=== PATIENT | female | born 1975 | race African-American/Black ===

== ENCOUNTER 2016-12-07 01:53 | Emergency (ER) | payer OTHER ==
[~2016-12-07] VITALS: Ht 175.3 cm; Wt 68.2 kg
[~2016-12-07 01:53] MED LIST: LITH300C3 PO; OLAN5Z PO
[2016-12-07 04:10] VITALS: BP 134/85
== END 2016-12-07 04:42 | disposition home or self-care (01) ==
LOC: EMS 01:55
DX: Z76.0 Encounter for issue of repeat prescription (principal); F20.9 Schizophrenia, unspecified; F31.9 Bipolar disorder, unspecified; F17.210 Nicotine dependence, cigarettes, uncomplicated
CPT/HCPCS: 99281

== ENCOUNTER 2016-12-11 19:44 | Inpatient (IN) | payer MEDICAID, OTHER ==
[~2016-12-11] VITALS: Ht 167.6 cm; Wt 73.9 kg
[2016-12-11] MEDS ORDERED: LORazepam 2 MG/ML VIAL IM ONE (20:00)
[2016-12-11] MEDS ORDERED: HALOPERIDOL LACTATE 5 MG/ML VIAL IM ONE (20:00)
[2016-12-11] MEDS ORDERED: DiphenhydrAMINE HCL 50 MG/ML VIAL IM ONE (20:00)
[2016-12-11 20:33] LABS: BASOPHILS # (AUTO) 0.07 K/uL (0.00-0.20); BASOPHILS % (AUTO) 0.7 % (0.0-2.0); EOSINOPHILS # (AUTO) 0.21 K/uL (0.00-0.70); EOSINOPHILS % (AUTO) 2.04 % (1.0-6.0); HEMATOCRIT 36.6 % (36-46); HEMOGLOBIN 12.5 g/dL (12.0-16.0); LYMPHOCYTES # (AUTO) 3.6 K/uL (1.0-4.8); LYMPHOCYTES % (AUTO) 34.7 % (22.0-44.0); MEAN CORPUSCULAR HEMOGLOBIN 32.4 pg (26.0-34.0); MEAN CORPUSCULAR HGB CONC 34.2 G/dL (31.0-37.0); MEAN CORPUSCULAR VOLUME 95 fL (80-100); MONOCYTES # (AUTO) 0.8 K/uL (0.1-1.0); MONOCYTES % (AUTO) 8.1 % (2.0-9.0); NEUTROPHILS # (AUTO) 5.6 K/uL (1.8-7.7); NEUTROPHILS % (AUTO) 54.5 % (40.0-70.0); PLATELET COUNT (AUTO) 383 K/uL (150-450); RED BLOOD CELL COUNT(AUTO) 3.86 MIL/uL (4.00-5.20); RED CELL DISTRIBUTION WIDTH 14.4 % (11.5-14.5); WHITE BLOOD COUNT (AUTO) 10.3 K/uL (4.5-11.0)
[2016-12-11 20:40] LABS: ANION GAP 6 mmol/L (8-16); CALCIUM, TOTAL 9.3 mg/dL (8.8-10.5); CARBON DIOXIDE 29 mmol/L (22-29); CHLORIDE 104 mmol/L (98-107); CREATININE 0.97 mg/dL (0.60-1.30); GLOMERULAR FILTR. RATE CALC > 60 mL/min (>60); LITHIUM 0.68 mmol/L (0.60-1.20); POTASSIUM 3.5 mmol/L (3.5-5.1); SODIUM SERUM 139 mmol/L (136-145); UREA NITROGEN, BLOOD 20 mg/dL (7-18)
[2016-12-11 20:45] LABS: ALANINE AMINOTRANSFERASE 23 U/L (12-78); ALBUMIN 3.7 g/dL (3.4-5.0); ASPARTATE AMINOTRANSFERASE 21 U/L (15-37); BILIRUBIN,TOTAL 0.2 mg/dL (0.1-1.0); TOTAL PROTEIN, SERUM 7.6 g/dL (6.4-8.2)
[2016-12-11] MEDS ORDERED: ZOLPIDEM TARTRATE 10 MG TABLET PO PRN (22:00)
[2016-12-12 16:30] VITALS: BP 116/66
[2016-12-12] MEDS ORDERED: INFLUENZA VIRUS VACCINE QVS 2016-17 (3YR+)/PF 60 MCG/0.5 ML SYRINGE IM ONE (16:30)
[2016-12-12] MEDS: LORazepam 2 MG TABLET PO PRN (16:49)
[2016-12-12] MEDS: HALOPERIDOL 5 MG TABLET PO PRN (16:50)
[2016-12-13 05:39] VITALS: BP 120/76
[2016-12-13] MEDS ORDERED: ACETAMINOPHEN 325 MG TABLET PO PRN (08:15)
[2016-12-13] MEDS ORDERED: IBUPROFEN 400 MG TABLET PO PRN (08:15)
[2016-12-13] MEDS: LORazepam 2 MG TABLET PO PRN ×2 (08:36→16:18)
[2016-12-13] MEDS: HALOPERIDOL 5 MG TABLET PO PRN (08:36)
[2016-12-13 08:59] VITALS: BP 100/60
[2016-12-13 16:10] VITALS: BP 110/63
[2016-12-13] MEDS ORDERED: HALOPERIDOL DECANOATE 100 MG/ML VIAL IM SCH (17:00)
[2016-12-13 19:00] VITALS: BP 124/74
[2016-12-14 06:38] VITALS: BP 127/78
[2016-12-14 08:24] LABS: HEMOGLOBIN A1C 5.4 % (4.5-6.2)
[2016-12-14] MEDS: BENZTROPINE MESYLATE 1 MG TABLET PO SCH (08:24)
[2016-12-14] MEDS: HALOPERIDOL 5 MG TABLET PO PRN ×2 (08:24→13:47)
[2016-12-14] MEDS: LORazepam 2 MG TABLET PO PRN ×2 (08:24→13:47)
[2016-12-14 08:27] VITALS: BP 123/71
[2016-12-14 08:35] LABS: CHOL/HDL RATIO 4.5 (3.9-5.7); THYROID STIMULATING HORMONE 2.9 uIU/mL (0.36-3.74)
[2016-12-14] MEDS ORDERED: HALOPERIDOL DECANOATE 100 MG/ML VIAL IM SCH (09:00)
[2016-12-14 16:00] VITALS: BP 115/63
[2016-12-15 06:09] VITALS: BP 121/72
[2016-12-15] MEDS: HALOPERIDOL 5 MG TABLET PO PRN (08:04)
[2016-12-15] MEDS: BENZTROPINE MESYLATE 1 MG TABLET PO SCH (08:04)
[2016-12-15] MEDS: LORazepam 2 MG TABLET PO PRN (08:04)
[2016-12-15] MEDS ORDERED: BENZ1TAB10 PO (08:06)
[2016-12-15 08:17] VITALS: BP 109/74
[2017-01-12] MEDS ORDERED: HALOPERIDOL DECANOATE 100 MG/ML VIAL IM SCH (09:00)
== END 2016-12-15 10:04 | disposition home or self-care (01) | DRG 750 ==
LOC: EMS 19:45 → B3A 12-12 15:10 → EMS 12-12 15:47 → B3A 12-13 14:05
PROVIDERS: ADMIT Psychiatry & Neurology Psychiatry; ATTEND Psychiatry & Neurology Psychiatry
DX: F20.9 Schizophrenia, unspecified (principal); R45.851 Suicidal ideations; Z59.0 Homelessness; F31.9 Bipolar disorder, unspecified; F17.210 Nicotine dependence, cigarettes, uncomplicated; K21.9 Gastro-esophageal reflux disease without esophagitis; E78.5 Hyperlipidemia, unspecified; F15.90 Other stimulant use, unspecified, uncomplicated; Z79.899 Other long term (current) drug therapy; Z28.21 Immunization not carried out because of patient refusal; Z98.890 Other specified postprocedural states
CPT/HCPCS: 83036; 84443; 96372; 99285; G0480; J1200; J1630; J1631; J2060

== ENCOUNTER 2016-12-20 06:22 | Emergency (ER) | payer MEDICAID ==
[~2016-12-20] VITALS: Ht 162.6 cm; Wt 82.0 kg
[~2016-12-20 06:22] MED LIST changes: +BENZ1TAB10 PO; -LITH300C3 PO; -OLAN5Z PO
[2016-12-20 06:26] VITALS: BP 120/75
== END 2016-12-20 10:03 | disposition left against medical advice (07) ==
LOC: EMS 06:23
DX: Z00.8 Encounter for other general examination (principal); L29.9 Pruritus, unspecified; F31.9 Bipolar disorder, unspecified; F20.9 Schizophrenia, unspecified; F17.210 Nicotine dependence, cigarettes, uncomplicated; Z53.21 Procedure and treatment not carried out due to patient leaving prior to being seen by health care provider

== ENCOUNTER 2017-01-29 19:08 | Emergency (ER) | payer MEDICAID, OTHER ==
[~2017-01-29] VITALS: Ht 157.5 cm; Wt 79.5 kg
[2017-01-29 19:20] VITALS: BP 132/76
[2017-01-29] MEDS ORDERED: DiphenhydrAMINE HCL 25 MG CAPSULE PO ONE (19:30)
[2017-01-29] MEDS ORDERED: HALOPERIDOL 5 MG TABLET PO ONE (19:30)
== END 2017-01-29 19:36 | disposition home or self-care (01) ==
LOC: EMS 19:10
DX: F15.10 Other stimulant abuse, uncomplicated (principal); F20.9 Schizophrenia, unspecified; F31.9 Bipolar disorder, unspecified; F17.210 Nicotine dependence, cigarettes, uncomplicated
CPT/HCPCS: 99283; 99406

== ENCOUNTER 2017-02-04 09:25 | Emergency (ER) | payer OTHER ==
[~2017-02-04] VITALS: Ht 157.5 cm; Wt 84.0 kg
[2017-02-04] MEDS ORDERED: LITH300C3 PO (09:42)
[2017-02-04] MEDS ORDERED: HALO1 PO (09:44)
[2017-02-04] MEDS ORDERED: BENZ0.5T6 PO (09:44)
[2017-02-04 09:46] VITALS: BP 138/78
[2017-02-04 09:47] LABS: BASOPHILS # (AUTO) 0.03 K/uL (0.00-0.20); BASOPHILS % (AUTO) 0.4 % (0.0-2.0); EOSINOPHILS % (AUTO) 1.37 % (1.0-6.0); HEMATOCRIT 37.1 % (36-46); HEMOGLOBIN 12.5 g/dL (12.0-16.0); LYMPHOCYTES # (AUTO) 1.6 K/uL (1.0-4.8); LYMPHOCYTES % (AUTO) 21.7 % (22.0-44.0); MEAN CORPUSCULAR HEMOGLOBIN 31.8 pg (26.0-34.0); MEAN CORPUSCULAR HGB CONC 33.7 G/dL (31.0-37.0); MEAN CORPUSCULAR VOLUME 94 fL (80-100); MONOCYTES # (AUTO) 0.2 K/uL (0.1-1.0); MONOCYTES % (AUTO) 3.2 % (2.0-9.0); NEUTROPHILS # (AUTO) 5.4 K/uL (1.8-7.7); NEUTROPHILS % (AUTO) 73.4 % (40.0-70.0); PLATELET COUNT (AUTO) 365 K/uL (150-450); RED BLOOD CELL COUNT(AUTO) 3.93 MIL/uL (4.00-5.20); RED CELL DISTRIBUTION WIDTH 12.9 % (11.5-14.5); WHITE BLOOD COUNT (AUTO) 7.3 K/uL (4.5-11.0)
[2017-02-04 09:56] LABS: ANION GAP 8 mmol/L (8-16); CALCIUM, TOTAL 8.5 mg/dL (8.8-10.5); CARBON DIOXIDE 28 mmol/L (22-29); CHLORIDE 103 mmol/L (98-107); CREATININE 0.92 mg/dL (0.60-1.30); GLOMERULAR FILTR. RATE CALC > 60 mL/min (>60); POTASSIUM 3.3 mmol/L (3.5-5.1); SODIUM SERUM 139 mmol/L (136-145); UREA NITROGEN, BLOOD 10 mg/dL (7-18)
[2017-02-04 10:05] LABS: ALANINE AMINOTRANSFERASE 28 U/L (12-78); ALBUMIN 3.9 g/dL (3.4-5.0); ASPARTATE AMINOTRANSFERASE 20 U/L (15-37); BILIRUBIN,TOTAL 0.4 mg/dL (0.1-1.0); TOTAL PROTEIN, SERUM 7.8 g/dL (6.4-8.2)
== END 2017-02-04 10:14 | disposition left against medical advice (07) ==
LOC: EMS 09:27
DX: R45.851 Suicidal ideations (principal); F31.9 Bipolar disorder, unspecified; F20.9 Schizophrenia, unspecified; F17.210 Nicotine dependence, cigarettes, uncomplicated; Z53.21 Procedure and treatment not carried out due to patient leaving prior to being seen by health care provider
CPT/HCPCS: 36415; 80053; 80307; 84702; 84703; 85025; G0480

== ENCOUNTER 2017-02-16 00:36 | Inpatient (IN) | payer MEDICAID, OTHER ==
[~2017-02-16] VITALS: Ht 167.6 cm; Wt 69.2 kg
[~2017-02-16 00:36] MED LIST changes: +BENZ0.5T6 PO; +HALO1 PO; +LITH300C3 PO
[2017-02-16 00:59] LABS: BASOPHILS # (AUTO) 0.06 K/uL (0.00-0.20); BASOPHILS % (AUTO) 0.7 % (0.0-2.0); EOSINOPHILS # (AUTO) 0.19 K/uL (0.00-0.70); EOSINOPHILS % (AUTO) 2.32 % (1.0-6.0); HEMATOCRIT 38.7 % (36-46); HEMOGLOBIN 12.9 g/dL (12.0-16.0); LYMPHOCYTES # (AUTO) 2.6 K/uL (1.0-4.8); LYMPHOCYTES % (AUTO) 32.9 % (22.0-44.0); MEAN CORPUSCULAR HEMOGLOBIN 31.7 pg (26.0-34.0); MEAN CORPUSCULAR HGB CONC 33.3 G/dL (31.0-37.0); MEAN CORPUSCULAR VOLUME 95 fL (80-100); MONOCYTES # (AUTO) 0.7 K/uL (0.1-1.0); MONOCYTES % (AUTO) 8.2 % (2.0-9.0); NEUTROPHILS # (AUTO) 4.5 K/uL (1.8-7.7); NEUTROPHILS % (AUTO) 55.9 % (40.0-70.0); PLATELET COUNT (AUTO) 399 K/uL (150-450); RED BLOOD CELL COUNT(AUTO) 4.06 MIL/uL (4.00-5.20); RED CELL DISTRIBUTION WIDTH 14.4 % (11.5-14.5)
[2017-02-16 01:05] LABS: ANION GAP 8 mmol/L (8-16); CALCIUM, TOTAL 9.1 mg/dL (8.8-10.5); CARBON DIOXIDE 27 mmol/L (22-29); CHLORIDE 107 mmol/L (98-107); CREATININE 0.77 mg/dL (0.60-1.30); GLOMERULAR FILTR. RATE CALC > 60 mL/min (>60); POTASSIUM 3.7 mmol/L (3.5-5.1); SODIUM SERUM 142 mmol/L (136-145); UREA NITROGEN, BLOOD 11 mg/dL (7-18)
[2017-02-16 01:11] LABS: ALANINE AMINOTRANSFERASE 29 U/L (12-78); ASPARTATE AMINOTRANSFERASE 23 U/L (15-37); BILIRUBIN,TOTAL 0.4 mg/dL (0.1-1.0)
[2017-02-16 01:37] LABS: LITHIUM < 0.20 mmol/L (0.60-1.20)
[2017-02-16] MEDS ORDERED: LORazepam 2 MG TABLET PO ONE (02:30)
[2017-02-16] MEDS ORDERED: DiphenhydrAMINE HCL 25 MG CAPSULE PO ONE (02:30)
[2017-02-16] MEDS ORDERED: HALOPERIDOL 5 MG TABLET PO ONE (02:30)
[2017-02-16 04:21] VITALS: BP 144/77
[2017-02-16] MEDS ORDERED: MAGNESIUM HYDROXIDE SUSPENSION 30 ML UDCUP PO PRN (08:00)
[2017-02-16] MEDS ORDERED: ALBUTEROL SULFATE HFA 90 MCG/PUFF 8 GM INHALER IH PRN (08:00)
[2017-02-16] MEDS ORDERED: ONDANSETRON HCL 4 MG TABLET PO PRN (08:00)
[2017-02-16] MEDS ORDERED: CloNIDine HCL 0.1 MG TABLET PO PRN (08:00)
[2017-02-16] MEDS ORDERED: PETROLATUM,WHITE 71 GM JELLY TP PRN (08:00)
[2017-02-16] MEDS ORDERED: MAG HYDROX/AL HYDROX/SIMETH ES 30 ML SUSPENSION UDCUP PO PRN (08:00)
[2017-02-16] MEDS ORDERED: IBUPROFEN 600 MG TABLET PO PRN (08:00)
[2017-02-16] MEDS ORDERED: ACETAMINOPHEN 325 MG TABLET PO PRN (08:00)
[2017-02-16] MEDS ORDERED: BACITRACIN 28.4 GM OINTMENT TP PRN (08:00)
[2017-02-16] MEDS ORDERED: LOPERAMIDE HCL 2 MG CAPSULE PO PRN (08:00)
[2017-02-16] MEDS ORDERED: BENZOCAINE/MENTHOL LOZENGE [8 LOZENGES/PACKET] MM PRN (08:00)
[2017-02-16 08:38] VITALS: BP 113/63
[2017-02-16] MEDS ORDERED: LITHIUM CARBONATE 300 MG CAPSULE PO SCH (09:00)
[2017-02-16] MEDS ORDERED: HALOPERIDOL 5 MG TABLET PO SCH (09:00)
[2017-02-16 16:29] VITALS: BP 119/82
[2017-02-16] MEDS: LITHIUM CARBONATE 300 MG CAPSULE PO SCH (18:02)
[2017-02-16] MEDS: HALOPERIDOL 5 MG TABLET PO SCH (21:19)
[2017-02-17] MEDS: LORazepam 2 MG TABLET PO PRN ×3 (06:25→18:06)
[2017-02-17] MEDS: HALOPERIDOL 5 MG TABLET PO PRN ×3 (06:29→18:06)
[2017-02-17 07:02] LABS: CHOL/HDL RATIO 4.6 (3.9-5.7); THYROID STIMULATING HORMONE 0.79 uIU/mL (0.36-3.74)
[2017-02-17 08:16] VITALS: BP 103/62
[2017-02-17] MEDS: LITHIUM CARBONATE 300 MG CAPSULE PO SCH ×2 (10:58→15:49)
[2017-02-17] MEDS: HALOPERIDOL 5 MG TABLET PO SCH ×2 (10:59→20:23)
[2017-02-17 16:30] VITALS: BP 112/78
[2017-02-17] MEDS: SIMVASTATIN 10 MG TABLET PO SCH (20:24)
[2017-02-18] MEDS: CHOLECALCIFEROL (VIT D3) 1,000 UNITS TABLET PO SCH (07:29)
[2017-02-18] MEDS: HALOPERIDOL 5 MG TABLET PO SCH ×2 (07:29→21:10)
[2017-02-18] MEDS: LITHIUM CARBONATE 300 MG CAPSULE PO SCH ×2 (07:29→17:20)
[2017-02-18] MEDS: LORazepam 2 MG TABLET PO PRN ×2 (07:29→12:27)
[2017-02-18 08:55] VITALS: BP 105/66
[2017-02-18] MEDS: HALOPERIDOL 5 MG TABLET PO PRN (12:27)
[2017-02-18] MEDS ORDERED: LORazepam 2 MG/ML VIAL IM ONE (16:30)
[2017-02-18] MEDS ORDERED: HALOPERIDOL LACTATE 5 MG/ML VIAL IM ONE (16:30)
[2017-02-18] MEDS ORDERED: DiphenhydrAMINE HCL 50 MG/ML VIAL IM ONE (16:30)
[2017-02-18 17:07] VITALS: BP 102/69
[2017-02-18] MEDS: SIMVASTATIN 10 MG TABLET PO SCH (21:09)
[2017-02-19] MEDS: HALOPERIDOL 5 MG TABLET PO SCH ×2 (07:36→20:16)
[2017-02-19] MEDS: CHOLECALCIFEROL (VIT D3) 1,000 UNITS TABLET PO SCH (07:36)
[2017-02-19] MEDS: LITHIUM CARBONATE 300 MG CAPSULE PO SCH ×2 (07:36→16:54)
[2017-02-19] MEDS: LORazepam 2 MG TABLET PO PRN ×3 (07:36→17:45)
[2017-02-19 08:34] VITALS: BP 115/66
[2017-02-19] MEDS: HALOPERIDOL 5 MG TABLET PO PRN (11:39)
[2017-02-19 16:00] VITALS: BP 114/72
[2017-02-19] MEDS: SIMVASTATIN 10 MG TABLET PO SCH (20:16)
[2017-02-20] MEDS: ZOLPIDEM TARTRATE 10 MG TABLET PO PRN (01:05)
[2017-02-20 01:07] VITALS: BP 105/63
[2017-02-20] MEDS: LORazepam 2 MG TABLET PO PRN ×2 (07:48→17:08)
[2017-02-20] MEDS: HALOPERIDOL 5 MG TABLET PO SCH ×2 (07:48→21:40)
[2017-02-20] MEDS: LITHIUM CARBONATE 300 MG CAPSULE PO SCH ×2 (07:48→17:08)
[2017-02-20] MEDS: CHOLECALCIFEROL (VIT D3) 1,000 UNITS TABLET PO SCH (07:48)
[2017-02-20 08:16] VITALS: BP 104/60
[2017-02-20 16:40] VITALS: BP 113/75
[2017-02-20] MEDS: SIMVASTATIN 10 MG TABLET PO SCH (21:39)
[2017-02-21] MEDS: ZOLPIDEM TARTRATE 10 MG TABLET PO PRN (02:49)
[2017-02-21 08:30] VITALS: BP 114/71
[2017-02-21] MEDS: LORazepam 2 MG TABLET PO PRN (08:45)
[2017-02-21] MEDS: CHOLECALCIFEROL (VIT D3) 1,000 UNITS TABLET PO SCH (08:45)
[2017-02-21] MEDS: HALOPERIDOL 5 MG TABLET PO SCH ×2 (08:46→20:34)
[2017-02-21] MEDS: LITHIUM CARBONATE 300 MG CAPSULE PO SCH ×2 (08:46→16:10)
[2017-02-21] MEDS ORDERED: DiphenhydrAMINE HCL 50 MG/ML VIAL IM ONE (09:45)
[2017-02-21] MEDS ORDERED: LORazepam 2 MG/ML VIAL IM ONE (09:45)
[2017-02-21] MEDS ORDERED: HALOPERIDOL LACTATE 5 MG/ML VIAL IM ONE (09:45)
[2017-02-21 16:00] VITALS: BP 105/55
[2017-02-21] MEDS: SIMVASTATIN 10 MG TABLET PO SCH (20:47)
[2017-02-22] MEDS: LORazepam 2 MG TABLET PO PRN ×2 (03:31→08:25)
[2017-02-22 04:51] VITALS: BP 110/68
[2017-02-22 08:10] VITALS: BP 113/62
[2017-02-22] MEDS: LITHIUM CARBONATE 300 MG CAPSULE PO SCH ×2 (08:25→16:09)
[2017-02-22] MEDS: CHOLECALCIFEROL (VIT D3) 1,000 UNITS TABLET PO SCH (08:26)
[2017-02-22] MEDS: HALOPERIDOL 5 MG TABLET PO SCH ×2 (08:26→20:26)
[2017-02-22 16:41] VITALS: BP 115/67
[2017-02-22] MEDS: SIMVASTATIN 10 MG TABLET PO SCH (20:26)
[2017-02-23] MEDS: LORazepam 2 MG TABLET PO PRN (02:43)
[2017-02-23] MEDS: ZOLPIDEM TARTRATE 10 MG TABLET PO PRN (02:43)
[2017-02-23 05:03] VITALS: BP 112/60
[2017-02-23] MEDS: LITHIUM CARBONATE 300 MG CAPSULE PO SCH (08:25)
[2017-02-23] MEDS: CHOLECALCIFEROL (VIT D3) 1,000 UNITS TABLET PO SCH (08:25)
[2017-02-23] MEDS: HALOPERIDOL 5 MG TABLET PO SCH (08:26)
[2017-02-23 08:36] VITALS: BP 103/57
[2017-02-23] MEDS ORDERED: HALO10 PO (10:33)
[2017-02-23] MEDS ORDERED: SIMV-259 PO (10:37)
[2017-02-23] MEDS ORDERED: VITAD1000 PO (10:37)
== END 2017-02-23 12:35 | disposition home or self-care (01) | DRG 750 ==
LOC: EMS 00:38 → 3EC 03:00
PROVIDERS: ADMIT Psychiatry & Neurology Child & Adolescent Psychiatry; ATTEND Psychiatry & Neurology Psychiatry
DX: F20.0 Paranoid schizophrenia (principal); E55.9 Vitamin D deficiency, unspecified; F25.1 Schizoaffective disorder, depressive type; Z59.0 Homelessness; E78.00 Pure hypercholesterolemia, unspecified; E78.5 Hyperlipidemia, unspecified; F12.90 Cannabis use, unspecified, uncomplicated; G47.00 Insomnia, unspecified; K21.9 Gastro-esophageal reflux disease without esophagitis; F17.210 Nicotine dependence, cigarettes, uncomplicated; Z71.6 Tobacco abuse counseling; Z71.51 Drug abuse counseling and surveillance of drug abuser; Z98.890 Other specified postprocedural states; Z79.899 Other long term (current) drug therapy
CPT/HCPCS: 82306; 84443; 99285; G0480; J1200; J1630; J2060

== ENCOUNTER 2017-02-27 02:20 | Emergency (ER) | payer MEDICAID, OTHER ==
[~2017-02-27 02:20] MED LIST changes: -BENZ0.5T6 PO; -BENZ1TAB10 PO; -HALO1 PO; +HALO10 PO; +SIMV-259 PO; +VITAD1000 PO
== END 2017-02-27 03:00 | disposition left against medical advice (07) ==
LOC: EMS 02:22
DX: Z76.0 Encounter for issue of repeat prescription (principal); Z53.21 Procedure and treatment not carried out due to patient leaving prior to being seen by health care provider

== ENCOUNTER 2017-07-10 05:55 | Inpatient (IN) | payer MEDICAID, OTHER ==
[~2017-07-10] VITALS: Ht 162.6 cm; Wt 49.9 kg
[2017-07-10 06:41] LABS: BASOPHILS % (AUTO) 0.6 % (0.0-2.0); HEMATOCRIT 35.2 % (36-46); HEMOGLOBIN 11.8 g/dL (12.0-16.0); LYMPHOCYTES % (AUTO) 42.3 % (22.0-44.0); MEAN CORPUSCULAR HEMOGLOBIN 32.1 pg (26.0-34.0); MEAN CORPUSCULAR HGB CONC 33.6 G/dL (31.0-37.0); MEAN CORPUSCULAR VOLUME 96 fL (80-100); MONOCYTES # (AUTO) 0.7 K/uL (0.1-1.0); MONOCYTES % (AUTO) 10.2 % (2.0-9.0); NEUTROPHILS # (AUTO) 3.1 K/uL (1.8-7.7); NEUTROPHILS % (AUTO) 43.9 % (40.0-70.0); PLATELET COUNT (AUTO) 407 K/uL (150-450); RED BLOOD CELL COUNT(AUTO) 3.69 MIL/uL (4.00-5.20); RED CELL DISTRIBUTION WIDTH 15.1 % (11.5-14.5)
[2017-07-10] MEDS ORDERED: HALOPERIDOL LACTATE 5 MG/ML VIAL IM ONE (06:45)
[2017-07-10] MEDS ORDERED: DiphenhydrAMINE HCL 50 MG/ML VIAL IM ONE (06:45)
[2017-07-10] MEDS ORDERED: LORazepam 2 MG/ML VIAL IM ONE (06:45)
[2017-07-10 07:01] LABS: ANION GAP 14 mmol/L (8-16); CALCIUM, TOTAL 9.1 mg/dL (8.8-10.5); CARBON DIOXIDE 22 mmol/L (22-29); CHLORIDE 105 mmol/L (98-107); CREATININE 0.75 mg/dL (0.60-1.30); GLOMERULAR FILTR. RATE CALC > 60 mL/min (>60); POTASSIUM 3.9 mmol/L (3.5-5.1); SODIUM SERUM 141 mmol/L (136-145); UREA NITROGEN, BLOOD 11 mg/dL (7-18)
[2017-07-10 07:10] LABS: ALANINE AMINOTRANSFERASE 22 U/L (12-78); ALBUMIN 3.7 g/dL (3.4-5.0); ASPARTATE AMINOTRANSFERASE 17 U/L (15-37); BILIRUBIN,TOTAL 0.4 mg/dL (0.1-1.0); CHOL/HDL RATIO 3.8 (3.9-5.7); TOTAL PROTEIN, SERUM 7.4 g/dL (6.4-8.2)
[2017-07-10] MEDS ORDERED: PETROLATUM,WHITE 71 GM JELLY TP PRN (16:00)
[2017-07-10] MEDS ORDERED: MAG HYDROX/AL HYDROX/SIMETH ES 30 ML SUSPENSION UDCUP PO PRN (16:00)
[2017-07-10] MEDS ORDERED: BENZOCAINE/MENTHOL LOZENGE MM PRN (16:00)
[2017-07-10] MEDS ORDERED: BACITRACIN 28.4 GM OINTMENT TP PRN (16:00)
[2017-07-10] MEDS ORDERED: ALBUTEROL SULFATE HFA 90 MCG/PUFF 8 GM INHALER IH PRN (16:00)
[2017-07-10] MEDS ORDERED: IBUPROFEN 600 MG TABLET PO PRN (16:00)
[2017-07-10] MEDS ORDERED: CloNIDine HCL 0.1 MG TABLET PO PRN (16:00)
[2017-07-10] MEDS ORDERED: LOPERAMIDE HCL 2 MG CAPSULE PO PRN (16:00)
[2017-07-10] MEDS ORDERED: ACETAMINOPHEN 325 MG TABLET PO PRN (16:00)
[2017-07-10] MEDS ORDERED: ONDANSETRON HCL 4 MG TABLET PO PRN (16:00)
[2017-07-10] MEDS ORDERED: MAGNESIUM HYDROXIDE SUSPENSION 30 ML UDCUP PO PRN (16:00)
[2017-07-10] MEDS: SIMVASTATIN 10 MG TABLET PO SCH (20:13)
[2017-07-11] MEDS ORDERED: LORazepam 2 MG/ML VIAL ONE (06:19)
[2017-07-11] MEDS ORDERED: DiphenhydrAMINE HCL 50 MG/ML VIAL ONE (06:19)
[2017-07-11] MEDS ORDERED: HALOPERIDOL LACTATE 5 MG/ML VIAL ONE (06:19)
[2017-07-11] MEDS ORDERED: HALOPERIDOL LACTATE 5 MG/ML VIAL IM ONE (06:30)
[2017-07-11] MEDS ORDERED: LORazepam 2 MG/ML VIAL IM ONE (06:30)
[2017-07-11] MEDS ORDERED: DiphenhydrAMINE HCL 50 MG/ML VIAL IM ONE (06:30)
[2017-07-11] MEDS: LORazepam 2 MG TABLET PO PRN ×2 (09:26→10:30)
[2017-07-11] MEDS: CHOLECALCIFEROL (VIT D3) 1,000 UNITS TABLET PO SCH (09:26)
[2017-07-11] MEDS: LITHIUM CARBONATE 600 MG CAPSULE PO SCH (20:10)
[2017-07-11] MEDS: SIMVASTATIN 10 MG TABLET PO SCH (20:10)
[2017-07-11] MEDS: HALOPERIDOL 10 MG TABLET PO SCH (20:10)
[2017-07-12 01:08] VITALS: BP 126/87
[2017-07-12] MEDS: FERROUS SULFATE 325 MG EC TABLET PO SCH ×2 (06:39→16:43)
[2017-07-12 08:38] LABS: GLUCOSE, URINE (UA) NEGATIVE (NEGATIVE); KETONES,URINE NEGATIVE (NEGATIVE); LEUKOCYTE ESTERASE ,URINE SMALL (NEGATIVE); OCCULT BLOOD,URINE NEGATIVE (NEGATIVE); PH,URINE 6.5 (5.0-8.0); PROTEIN,URINE NEGATIVE (NEGATIVE)
[2017-07-12 08:49] LABS: ADD UA MICROSCOPIC YES; APPEARANCE,URINE HAZY (CLEAR); SQUAMOUS EPITHELIAL CELL,UR Moderate /LPF (None Seen); WBC,URINE None Seen /HPF (0-5)
[2017-07-12] MEDS: CHOLECALCIFEROL (VIT D3) 1,000 UNITS TABLET PO SCH (09:59)
[2017-07-12] MEDS ORDERED: LORazepam 2 MG/ML VIAL ONE (11:44)
[2017-07-12] MEDS ORDERED: DiphenhydrAMINE HCL 50 MG/ML VIAL ONE (11:45)
[2017-07-12] MEDS ORDERED: HALOPERIDOL LACTATE 5 MG/ML VIAL ONE (11:45)
[2017-07-12] MEDS ORDERED: DiphenhydrAMINE HCL 50 MG/ML VIAL IM ONE (12:00)
[2017-07-12] MEDS ORDERED: HALOPERIDOL LACTATE 5 MG/ML VIAL IM ONE (12:00)
[2017-07-12] MEDS ORDERED: LORazepam 2 MG/ML VIAL IM ONE (12:00)
[2017-07-12 16:13] VITALS: BP 113/78
[2017-07-12] MEDS: LORazepam 2 MG TABLET PO PRN (16:22)
[2017-07-12] MEDS: HALOPERIDOL 10 MG TABLET PO SCH (20:26)
[2017-07-12] MEDS: LITHIUM CARBONATE 600 MG CAPSULE PO SCH (20:26)
[2017-07-12] MEDS: SIMVASTATIN 10 MG TABLET PO SCH (20:26)
[2017-07-13] MEDS: FERROUS SULFATE 325 MG EC TABLET PO SCH ×2 (07:09→17:23)
[2017-07-13 09:34] VITALS: BP 110/80
[2017-07-13] MEDS: CIPROFLOXACIN HCL 250 MG TABLET PO SCH ×2 (10:46→16:01)
[2017-07-13] MEDS: CHOLECALCIFEROL (VIT D3) 1,000 UNITS TABLET PO SCH (10:46)
[2017-07-13] MEDS: LORazepam 2 MG TABLET PO PRN (11:22)
[2017-07-13] MEDS ORDERED: HALOPERIDOL LACTATE 5 MG/ML VIAL IM ONE (11:45)
[2017-07-13] MEDS ORDERED: LORazepam 2 MG/ML VIAL IM ONE (11:45)
[2017-07-13] MEDS ORDERED: DiphenhydrAMINE HCL 50 MG/ML VIAL IM ONE (11:45)
[2017-07-13 16:11] VITALS: BP 107/69
[2017-07-13] MEDS: SIMVASTATIN 10 MG TABLET PO SCH (20:10)
[2017-07-13] MEDS: HALOPERIDOL 10 MG TABLET PO SCH (20:10)
[2017-07-13] MEDS: LITHIUM CARBONATE 600 MG CAPSULE PO SCH (20:10)
[2017-07-14] MEDS: FERROUS SULFATE 325 MG EC TABLET PO SCH ×2 (06:27→16:30)
[2017-07-14 07:22] VITALS: BP 110/60
[2017-07-14 08:23] VITALS: BP 106/58
[2017-07-14] MEDS: CIPROFLOXACIN HCL 250 MG TABLET PO SCH ×2 (09:40→16:30)
[2017-07-14] MEDS: LORazepam 2 MG TABLET PO PRN ×3 (09:40→21:06)
[2017-07-14] MEDS: CHOLECALCIFEROL (VIT D3) 1,000 UNITS TABLET PO SCH (09:40)
[2017-07-14 16:07] VITALS: BP 106/67
[2017-07-14] MEDS: LITHIUM CARBONATE 600 MG CAPSULE PO SCH (20:26)
[2017-07-14] MEDS: HALOPERIDOL 10 MG TABLET PO SCH (20:27)
[2017-07-14] MEDS: SIMVASTATIN 10 MG TABLET PO SCH (20:27)
[2017-07-14] MEDS: ZOLPIDEM TARTRATE 10 MG TABLET PO PRN (21:06)
[2017-07-15] MEDS: FERROUS SULFATE 325 MG EC TABLET PO SCH ×2 (06:32→16:39)
[2017-07-15 07:04] VITALS: BP 115/62
[2017-07-15] MEDS: CHOLECALCIFEROL (VIT D3) 1,000 UNITS TABLET PO SCH (08:10)
[2017-07-15] MEDS: LORazepam 2 MG TABLET PO PRN ×3 (08:10→20:41)
[2017-07-15] MEDS: CIPROFLOXACIN HCL 250 MG TABLET PO SCH ×2 (08:10→16:39)
[2017-07-15 08:13] VITALS: BP 109/62
[2017-07-15 16:00] VITALS: BP 106/74
[2017-07-15] MEDS: HALOPERIDOL 5 MG TABLET PO PRN (16:39)
[2017-07-15] MEDS: SIMVASTATIN 10 MG TABLET PO SCH (20:23)
[2017-07-15] MEDS: HALOPERIDOL 10 MG TABLET PO SCH (20:24)
[2017-07-15] MEDS: LITHIUM CARBONATE 600 MG CAPSULE PO SCH (20:24)
[2017-07-16 06:27] VITALS: BP 100/60
[2017-07-16] MEDS: FERROUS SULFATE 325 MG EC TABLET PO SCH ×2 (07:03→16:08)
[2017-07-16] MEDS: CHOLECALCIFEROL (VIT D3) 1,000 UNITS TABLET PO SCH (08:29)
[2017-07-16 08:30] VITALS: BP 121/60
[2017-07-16 16:00] VITALS: BP 126/63
[2017-07-16] MEDS: LORazepam 2 MG TABLET PO PRN (17:28)
[2017-07-16] MEDS: HALOPERIDOL 5 MG TABLET PO PRN (17:28)
[2017-07-16] MEDS: SIMVASTATIN 10 MG TABLET PO SCH (20:28)
[2017-07-16] MEDS: HALOPERIDOL 10 MG TABLET PO SCH (20:28)
[2017-07-16] MEDS: LITHIUM CARBONATE 600 MG CAPSULE PO SCH (20:28)
[2017-07-16] MEDS: ZOLPIDEM TARTRATE 10 MG TABLET PO PRN (20:29)
[2017-07-17 02:25] VITALS: BP 138/71
[2017-07-17] MEDS: FERROUS SULFATE 325 MG EC TABLET PO SCH ×2 (06:37→16:51)
[2017-07-17 08:10] VITALS: BP 118/82
[2017-07-17] MEDS: CHOLECALCIFEROL (VIT D3) 1,000 UNITS TABLET PO SCH (08:49)
[2017-07-17] MEDS: LORazepam 2 MG TABLET PO PRN ×3 (10:38→20:57)
[2017-07-17 16:22] VITALS: BP 115/67
[2017-07-17] MEDS: LITHIUM CARBONATE 600 MG CAPSULE PO SCH (20:16)
[2017-07-17] MEDS: SIMVASTATIN 10 MG TABLET PO SCH (20:16)
[2017-07-17] MEDS: HALOPERIDOL 10 MG TABLET PO SCH (20:16)
[2017-07-17] MEDS: ZOLPIDEM TARTRATE 10 MG TABLET PO PRN (20:57)
[2017-07-18 05:32] VITALS: BP 125/70
[2017-07-18] MEDS: FERROUS SULFATE 325 MG EC TABLET PO SCH ×2 (06:50→16:38)
[2017-07-18 08:00] VITALS: BP 122/77
[2017-07-18] MEDS: CHOLECALCIFEROL (VIT D3) 1,000 UNITS TABLET PO SCH (08:10)
[2017-07-18] MEDS: LORazepam 2 MG TABLET PO PRN ×3 (08:30→16:38)
[2017-07-18] MEDS: HALOPERIDOL 5 MG TABLET PO PRN ×2 (08:50→12:52)
[2017-07-18 16:14] VITALS: BP 114/69
[2017-07-18] MEDS: LITHIUM CARBONATE 600 MG CAPSULE PO SCH (20:03)
[2017-07-18] MEDS: HALOPERIDOL 10 MG TABLET PO SCH (20:03)
[2017-07-18] MEDS: SIMVASTATIN 10 MG TABLET PO SCH (20:03)
[2017-07-19] MEDS: FERROUS SULFATE 325 MG EC TABLET PO SCH ×2 (06:30→16:04)
[2017-07-19 07:08] VITALS: BP 120/72
[2017-07-19] MEDS: CHOLECALCIFEROL (VIT D3) 1,000 UNITS TABLET PO SCH (08:35)
[2017-07-19 11:29] VITALS: BP 97/67
[2017-07-19] MEDS: LORazepam 2 MG TABLET PO PRN (14:53)
[2017-07-19 14:54] VITALS: BP 110/76
[2017-07-19 16:15] VITALS: BP 119/76
[2017-07-19] MEDS: LITHIUM CARBONATE 600 MG CAPSULE PO SCH (20:08)
[2017-07-19] MEDS: HALOPERIDOL 10 MG TABLET PO SCH (20:08)
[2017-07-19] MEDS: SIMVASTATIN 10 MG TABLET PO SCH (20:08)
[2017-07-20 01:35] VITALS: BP 100/68
[2017-07-20] MEDS: FERROUS SULFATE 325 MG EC TABLET PO SCH ×2 (06:56→16:11)
[2017-07-20 08:00] VITALS: BP 106/52
[2017-07-20] MEDS: HALOPERIDOL 5 MG TABLET PO PRN ×2 (08:05→16:11)
[2017-07-20] MEDS: CHOLECALCIFEROL (VIT D3) 1,000 UNITS TABLET PO SCH (08:05)
[2017-07-20] MEDS ORDERED: LORazepam 2 MG/ML VIAL IM ONE (10:15)
[2017-07-20] MEDS ORDERED: HALOPERIDOL LACTATE 5 MG/ML VIAL IM ONE (10:15)
[2017-07-20] MEDS ORDERED: DiphenhydrAMINE HCL 50 MG/ML VIAL IM ONE (10:15)
[2017-07-20 16:56] VITALS: BP 123/62
[2017-07-20] MEDS: SIMVASTATIN 10 MG TABLET PO SCH (20:10)
[2017-07-20] MEDS: LITHIUM CARBONATE 600 MG CAPSULE PO SCH (20:10)
[2017-07-20] MEDS: HALOPERIDOL 10 MG TABLET PO SCH (20:10)
[2017-07-21] MEDS: FERROUS SULFATE 325 MG EC TABLET PO SCH ×2 (06:32→16:01)
[2017-07-21] MEDS: CHOLECALCIFEROL (VIT D3) 1,000 UNITS TABLET PO SCH (08:11)
[2017-07-21] MEDS: HALOPERIDOL 5 MG TABLET PO PRN (08:11)
[2017-07-21 10:30] VITALS: BP 98/67
[2017-07-21 16:17] VITALS: BP 114/76
[2017-07-21] MEDS: HALOPERIDOL 10 MG TABLET PO SCH (20:06)
[2017-07-21] MEDS: LITHIUM CARBONATE 600 MG CAPSULE PO SCH (20:06)
[2017-07-21] MEDS: SIMVASTATIN 10 MG TABLET PO SCH (20:06)
[2017-07-21] MEDS: ZOLPIDEM TARTRATE 10 MG TABLET PO PRN (20:59)
[2017-07-21] MEDS: LORazepam 2 MG TABLET PO PRN (20:59)
[2017-07-22] MEDS: FERROUS SULFATE 325 MG EC TABLET PO SCH ×2 (06:40→16:28)
[2017-07-22 06:54] VITALS: BP 110/61
[2017-07-22] MEDS: CHOLECALCIFEROL (VIT D3) 1,000 UNITS TABLET PO SCH (08:16)
[2017-07-22 16:05] VITALS: BP 111/68
[2017-07-22] MEDS: LORazepam 2 MG TABLET PO PRN (16:28)
[2017-07-22] MEDS: HALOPERIDOL 5 MG TABLET PO PRN (16:28)
[2017-07-22] MEDS: HALOPERIDOL 10 MG TABLET PO SCH (20:36)
[2017-07-22] MEDS: LITHIUM CARBONATE 600 MG CAPSULE PO SCH (20:36)
[2017-07-22] MEDS: SIMVASTATIN 10 MG TABLET PO SCH (20:36)
[2017-07-23] MEDS: FERROUS SULFATE 325 MG EC TABLET PO SCH ×2 (06:36→16:34)
[2017-07-23] MEDS: HALOPERIDOL 5 MG TABLET PO PRN ×2 (08:30→16:34)
[2017-07-23] MEDS: CHOLECALCIFEROL (VIT D3) 1,000 UNITS TABLET PO SCH (08:30)
[2017-07-23] MEDS: LORazepam 2 MG TABLET PO PRN ×2 (08:44→16:34)
[2017-07-23 16:00] VITALS: BP 107/65
[2017-07-23] MEDS: LITHIUM CARBONATE 600 MG CAPSULE PO SCH (20:21)
[2017-07-23] MEDS: HALOPERIDOL 10 MG TABLET PO SCH (20:21)
[2017-07-23] MEDS: ZOLPIDEM TARTRATE 10 MG TABLET PO PRN (20:22)
[2017-07-23] MEDS: SIMVASTATIN 10 MG TABLET PO SCH (20:22)
[2017-07-24] MEDS: FERROUS SULFATE 325 MG EC TABLET PO SCH (06:16)
[2017-07-24 06:45] VITALS: BP 11/70
[2017-07-24 08:30] VITALS: BP 95/61
[2017-07-24] MEDS ORDERED: FERR-89 PO (08:42)
[2017-07-24] MEDS: CHOLECALCIFEROL (VIT D3) 1,000 UNITS TABLET PO SCH (09:34)
== END 2017-07-24 14:01 | disposition home or self-care (01) | DRG 750 ==
LOC: EMS 05:56 → B3A 12:13
PROVIDERS: ADMIT Psychiatry & Neurology Child & Adolescent Psychiatry; ATTEND Psychiatry & Neurology Psychiatry
DX: F20.0 Paranoid schizophrenia (principal); E55.9 Vitamin D deficiency, unspecified; E78.5 Hyperlipidemia, unspecified; F12.90 Cannabis use, unspecified, uncomplicated; F15.10 Other stimulant abuse, uncomplicated; F17.200 Nicotine dependence, unspecified, uncomplicated; Z71.6 Tobacco abuse counseling; Z71.51 Drug abuse counseling and surveillance of drug abuser; Z72.89 Other problems related to lifestyle; Z71.41 Alcohol abuse counseling and surveillance of alcoholic
CPT/HCPCS: 96372; 99285; G0480; J1200; J1630; J2060

== ENCOUNTER 2018-01-14 18:59 | Inpatient (IN) | payer MEDICAID, OTHER ==
[~2018-01-14] VITALS: Ht 160 cm; Wt 56.8 kg
[~2018-01-14 18:59] MED LIST changes: +FERR-89 PO
[2018-01-14] MEDS ORDERED: HALOPERIDOL LACTATE 5 MG/ML VIAL IM ONE ×2 (20:00)
[2018-01-14] MEDS ORDERED: DiphenhydrAMINE HCL 50 MG/ML VIAL IM ONE ×2 (20:00)
[2018-01-14] MEDS ORDERED: LORazepam 2 MG/ML VIAL IM ONE ×2 (20:00)
[2018-01-14 20:38] LABS: BASOPHILS % (AUTO) 0.7 % (0.0-2.0); EOSINOPHILS % (AUTO) 1.8 % (1.0-6.0); HEMATOCRIT 38.7 % (36-46); HEMOGLOBIN 13.1 g/dL (12.0-16.0); LYMPHOCYTES # (AUTO) 3.2 K/uL (1.0-4.8); LYMPHOCYTES % (AUTO) 34.1 % (22.0-44.0); MEAN CORPUSCULAR HEMOGLOBIN 31.6 pg (26.0-34.0); MEAN CORPUSCULAR HGB CONC 33.9 G/dL (31.0-37.0); MEAN CORPUSCULAR VOLUME 93 fL (80-100); MONOCYTES # (AUTO) 1.1 K/uL (0.1-1.0); NEUTROPHILS # (AUTO) 4.8 K/uL (1.8-7.7); NEUTROPHILS % (AUTO) 51.4 % (40.0-70.0); PLATELET COUNT (AUTO) 445 K/uL (150-450); RED BLOOD CELL COUNT(AUTO) 4.16 MIL/uL (4.00-5.20); RED CELL DISTRIBUTION WIDTH 14.3 % (11.5-14.5)
[2018-01-14 20:54] LABS: ANION GAP 20 mmol/L (8-16); CALCIUM, TOTAL 9.8 mg/dL (8.8-10.5); CARBON DIOXIDE 19 mmol/L (22-29); CHLORIDE 105 mmol/L (98-107); CREATININE 1.06 mg/dL (0.60-1.30); GLOMERULAR FILTR. RATE CALC > 60 mL/min (>60); GLUCOSE,RANDOM 97 mg/dL (70-110); POTASSIUM 3.8 mmol/L (3.5-5.1); SODIUM SERUM 144 mmol/L (136-145); UREA NITROGEN, BLOOD 25 mg/dL (7-18)
[2018-01-14 21:00] LABS: ALANINE AMINOTRANSFERASE 25 U/L (12-78); ALBUMIN 4.1 g/dL (3.4-5.0); ALKALINE PHOSPHATASE 90 U/L (46-116); ASPARTATE AMINOTRANSFERASE 22 U/L (15-37); BILIRUBIN,TOTAL 0.3 mg/dL (0.1-1.0); TOTAL PROTEIN, SERUM 8.6 g/dL (6.4-8.2)
[2018-01-14 22:03] LABS: THYROID STIMULATING HORMONE 1.83 uIU/mL (0.36-3.74)
[2018-01-14 22:36] LABS: LITHIUM < 0.20 mmol/L (0.60-1.20)
[2018-01-15 00:20] VITALS: BP 125/76
[2018-01-15] MEDS ORDERED: INFLUENZA VIRUS VACCINE QVS 2017-18 (3YR+)/PF 60 MCG/0.5 ML SYRINGE IM ONE (00:30)
[2018-01-15] MEDS ORDERED: PETROLATUM,WHITE 71 GM JELLY TP PRN (08:45)
[2018-01-15] MEDS ORDERED: MAGNESIUM HYDROXIDE SUSPENSION 30 ML UDCUP PO PRN (08:45)
[2018-01-15] MEDS ORDERED: ALBUTEROL SULFATE HFA 90 MCG/PUFF 8 GM INHALER IH PRN (08:45)
[2018-01-15] MEDS ORDERED: LOPERAMIDE HCL 2 MG CAPSULE PO PRN (08:45)
[2018-01-15] MEDS ORDERED: BENZOCAINE/MENTHOL LOZENGE MM PRN (08:45)
[2018-01-15] MEDS ORDERED: IBUPROFEN 600 MG TABLET PO PRN (08:45)
[2018-01-15] MEDS ORDERED: ACETAMINOPHEN 325 MG TABLET PO PRN (08:45)
[2018-01-15] MEDS ORDERED: ONDANSETRON HCL 4 MG TABLET PO PRN (08:45)
[2018-01-15] MEDS ORDERED: CloNIDine HCL 0.1 MG TABLET PO PRN (08:45)
[2018-01-15] MEDS ORDERED: BACITRACIN 28.4 GM OINTMENT TP PRN (08:45)
[2018-01-15] MEDS ORDERED: MAG HYDROX/AL HYDROX/SIMETH ES 30 ML SUSPENSION UDCUP PO PRN (08:45)
[2018-01-15] MEDS: LORazepam 2 MG TABLET PO PRN ×2 (09:23→16:54)
[2018-01-15] MEDS: LITHIUM CARBONATE 300 MG CAPSULE PO SCH ×2 (09:23→16:54)
[2018-01-15] MEDS: CHOLECALCIFEROL (VIT D3) 1,000 UNITS TABLET PO SCH (09:23)
[2018-01-15 16:27] VITALS: BP 137/74
[2018-01-15] MEDS: HALOPERIDOL 5 MG TABLET PO PRN (16:54)
[2018-01-15] MEDS: HALOPERIDOL 10 MG TABLET PO SCH (21:08)
[2018-01-15] MEDS: ZOLPIDEM TARTRATE 10 MG TABLET PO PRN (21:08)
[2018-01-15] MEDS: SIMVASTATIN 10 MG TABLET PO SCH (21:08)
[2018-01-16 02:52] VITALS: BP 129/74
[2018-01-16] MEDS: LITHIUM CARBONATE 300 MG CAPSULE PO SCH ×2 (08:47→16:06)
[2018-01-16] MEDS: CHOLECALCIFEROL (VIT D3) 1,000 UNITS TABLET PO SCH (08:47)
[2018-01-16] MEDS: LORazepam 2 MG TABLET PO PRN ×2 (08:52→16:06)
[2018-01-16 16:40] VITALS: BP 119/73
[2018-01-16] MEDS: HALOPERIDOL 10 MG TABLET PO SCH (20:51)
[2018-01-16] MEDS: ZOLPIDEM TARTRATE 10 MG TABLET PO PRN (20:51)
[2018-01-16] MEDS: SIMVASTATIN 10 MG TABLET PO SCH (20:51)
[2018-01-17 08:51] VITALS: BP 126/81
[2018-01-17] MEDS: LITHIUM CARBONATE 300 MG CAPSULE PO SCH ×2 (08:59→16:57)
[2018-01-17] MEDS: CHOLECALCIFEROL (VIT D3) 1,000 UNITS TABLET PO SCH (08:59)
[2018-01-17] MEDS: LORazepam 2 MG TABLET PO PRN ×2 (09:00→16:58)
[2018-01-17] MEDS: HALOPERIDOL 5 MG TABLET PO PRN (16:58)
[2018-01-17] MEDS: SIMVASTATIN 10 MG TABLET PO SCH (20:22)
[2018-01-17] MEDS: HALOPERIDOL 10 MG TABLET PO SCH (20:22)
[2018-01-17] MEDS: ZOLPIDEM TARTRATE 10 MG TABLET PO PRN (21:09)
[2018-01-18] MEDS: CHOLECALCIFEROL (VIT D3) 1,000 UNITS TABLET PO SCH (10:02)
[2018-01-18] MEDS: LITHIUM CARBONATE 300 MG CAPSULE PO SCH ×2 (10:02→16:19)
[2018-01-18] MEDS: HALOPERIDOL 5 MG TABLET PO PRN (16:19)
[2018-01-18] MEDS: LORazepam 2 MG TABLET PO PRN (16:19)
[2018-01-18] MEDS: ZOLPIDEM TARTRATE 10 MG TABLET PO PRN (21:23)
[2018-01-18] MEDS: SIMVASTATIN 10 MG TABLET PO SCH (21:23)
[2018-01-18] MEDS: HALOPERIDOL 10 MG TABLET PO SCH (21:23)
[2018-01-19] MEDS: LITHIUM CARBONATE 300 MG CAPSULE PO SCH ×2 (09:32→16:13)
[2018-01-19] MEDS: CHOLECALCIFEROL (VIT D3) 1,000 UNITS TABLET PO SCH (09:32)
[2018-01-19] MEDS: LORazepam 2 MG TABLET PO PRN (15:47)
[2018-01-19 16:31] VITALS: BP 103/71
[2018-01-19] MEDS: ZOLPIDEM TARTRATE 10 MG TABLET PO PRN (20:10)
[2018-01-19] MEDS: SIMVASTATIN 10 MG TABLET PO SCH (20:10)
[2018-01-19] MEDS: HALOPERIDOL 10 MG TABLET PO SCH (20:10)
[2018-01-20] MEDS: LITHIUM CARBONATE 300 MG CAPSULE PO SCH ×2 (09:03→16:10)
[2018-01-20] MEDS: CHOLECALCIFEROL (VIT D3) 1,000 UNITS TABLET PO SCH (09:03)
[2018-01-20] MEDS: HALOPERIDOL 5 MG TABLET PO PRN (09:07)
[2018-01-20 09:47] VITALS: BP 110/60
[2018-01-20] MEDS ORDERED: HALO10 PO (14:08)
[2018-01-20] MEDS ORDERED: VITAD1000 PO (14:08)
[2018-01-20] MEDS ORDERED: LITH300C3 PO (14:09)
== END 2018-01-20 16:57 | disposition home or self-care (01) | DRG 750 ==
LOC: EMS 19:01 → UNDOADMIN 20:47 → B3A 20:47
DX: F25.0 Schizoaffective disorder, bipolar type (principal); R45.851 Suicidal ideations; Z78.1 Physical restraint status; E55.9 Vitamin D deficiency, unspecified; F15.10 Other stimulant abuse, uncomplicated; E78.5 Hyperlipidemia, unspecified; F12.90 Cannabis use, unspecified, uncomplicated; F17.210 Nicotine dependence, cigarettes, uncomplicated; F19.10 Other psychoactive substance abuse, uncomplicated; F41.9 Anxiety disorder, unspecified; G47.00 Insomnia, unspecified; Z91.5 Personal history of self-harm; Z71.6 Tobacco abuse counseling
CPT/HCPCS: 84443; 96372; 99285; G0480; J1200; J1630; J2060

== ENCOUNTER 2018-02-19 12:12 | Emergency (ER) | payer MEDICAID, OTHER ==
[~2018-02-19] VITALS: Ht 160 cm; Wt 54.5 kg
[~2018-02-19 12:12] MED LIST changes: -FERR-89 PO
[2018-02-19] MEDS ORDERED: HALOPERIDOL 5 MG TABLET PO ONE (12:30)
[2018-02-19 12:35] LABS: BASOPHILS % (AUTO) 1.2 % (0.0-2.0); EOSINOPHILS % (AUTO) 2.6 % (1.0-6.0); HEMATOCRIT 33.8 % (36-46); HEMOGLOBIN 11.5 g/dL (12.0-16.0); LYMPHOCYTES # (AUTO) 1.4 K/uL (1.0-4.8); LYMPHOCYTES % (AUTO) 29.9 % (22.0-44.0); MEAN CORPUSCULAR HEMOGLOBIN 31.5 pg (26.0-34.0); MEAN CORPUSCULAR VOLUME 93 fL (80-100); MONOCYTES # (AUTO) 0.4 K/uL (0.1-1.0); MONOCYTES % (AUTO) 8.7 % (2.0-9.0); NEUTROPHILS # (AUTO) 2.8 K/uL (1.8-7.7); NEUTROPHILS % (AUTO) 57.6 % (40.0-70.0); PLATELET COUNT (AUTO) 397 K/uL (150-450); RED BLOOD CELL COUNT(AUTO) 3.65 MIL/uL (4.00-5.20); RED CELL DISTRIBUTION WIDTH 13.9 % (11.5-14.5)
[2018-02-19 12:52] LABS: ANION GAP 8 mmol/L (8-16); CALCIUM, TOTAL 8.7 mg/dL (8.8-10.5); CARBON DIOXIDE 24 mmol/L (22-29); CHLORIDE 110 mmol/L (98-107); CREATININE 0.71 mg/dL (0.60-1.30); GLOMERULAR FILTR. RATE CALC > 60 mL/min (>60); GLUCOSE,RANDOM 95 mg/dL (70-110); POTASSIUM 4.2 mmol/L (3.5-5.1); SODIUM SERUM 142 mmol/L (136-145); UREA NITROGEN, BLOOD 12 mg/dL (7-18)
[2018-02-19 12:57] LABS: ALANINE AMINOTRANSFERASE 18 U/L (12-78); ALBUMIN 3.3 g/dL (3.4-5.0); ALKALINE PHOSPHATASE 61 U/L (46-116); ASPARTATE AMINOTRANSFERASE 18 U/L (15-37); BILIRUBIN,TOTAL 0.3 mg/dL (0.1-1.0)
[2018-02-19 13:04] LABS: LITHIUM < 0.20 mmol/L (0.60-1.20)
[2018-02-19 13:57] VITALS: BP 115/66
== END 2018-02-19 13:58 | disposition home or self-care (01) ==
LOC: EMS 12:13
DX: F25.9 Schizoaffective disorder, unspecified (principal); R41.82 Altered mental status, unspecified; F15.90 Other stimulant use, unspecified, uncomplicated; F17.210 Nicotine dependence, cigarettes, uncomplicated
CPT/HCPCS: 36415; 80053; 80178; 85025; 99284; 99406; G0480

== ENCOUNTER 2018-03-17 07:54 | Emergency (ER) | payer OTHER ==
[~2018-03-17] VITALS: Ht 160 cm; Wt 61.4 kg
[2018-03-17 07:57] VITALS: BP 133/99
== END 2018-03-17 08:00 | disposition left against medical advice (07) ==
LOC: EMS 07:55
DX: F41.9 Anxiety disorder, unspecified (principal); F20.9 Schizophrenia, unspecified; F17.210 Nicotine dependence, cigarettes, uncomplicated; F15.10 Other stimulant abuse, uncomplicated; Z59.0 Homelessness
CPT/HCPCS: 99284

== ENCOUNTER 2018-03-28 04:02 | Inpatient (IN) | payer MEDICAID, OTHER ==
[~2018-03-28] VITALS: Ht 154.9 cm; Wt 63.9 kg
[2018-03-28 05:27] LABS: BASOPHILS % (AUTO) 0.7 % (0.0-2.0); EOSINOPHILS % (AUTO) 2.7 % (1.0-6.0); HEMOGLOBIN 12.5 g/dL (12.0-16.0); LYMPHOCYTES # (AUTO) 2.6 K/uL (1.0-4.8); LYMPHOCYTES % (AUTO) 35.2 % (22.0-44.0); MEAN CORPUSCULAR HEMOGLOBIN 32.3 pg (26.0-34.0); MEAN CORPUSCULAR HGB CONC 34.6 G/dL (31.0-37.0); MEAN CORPUSCULAR VOLUME 93 fL (80-100); MONOCYTES # (AUTO) 0.5 K/uL (0.1-1.0); MONOCYTES % (AUTO) 7.3 % (2.0-9.0); NEUTROPHILS # (AUTO) 4.1 K/uL (1.8-7.7); NEUTROPHILS % (AUTO) 54.1 % (40.0-70.0); PLATELET COUNT (AUTO) 383 K/uL (150-450); RED BLOOD CELL COUNT(AUTO) 3.86 MIL/uL (4.00-5.20)
[2018-03-28 05:34] LABS: ANION GAP 7 mmol/L (8-16); CALCIUM, TOTAL 8.9 mg/dL (8.8-10.5); CARBON DIOXIDE 29 mmol/L (22-29); CHLORIDE 101 mmol/L (98-107); CREATININE 0.79 mg/dL (0.60-1.30); GLOMERULAR FILTR. RATE CALC > 60 mL/min (>60); GLUCOSE,RANDOM 110 mg/dL (70-110); POTASSIUM 3.5 mmol/L (3.5-5.1); SODIUM SERUM 137 mmol/L (136-145); UREA NITROGEN, BLOOD 12 mg/dL (7-18)
[2018-03-28 05:40] LABS: ALANINE AMINOTRANSFERASE 22 U/L (12-78); ALBUMIN 3.7 g/dL (3.4-5.0); ALKALINE PHOSPHATASE 71 U/L (46-116); ASPARTATE AMINOTRANSFERASE 20 U/L (15-37); BILIRUBIN,TOTAL 0.2 mg/dL (0.1-1.0); TOTAL PROTEIN, SERUM 7.5 g/dL (6.4-8.2)
[2018-03-28 05:52] LABS: LITHIUM < 0.20 mmol/L (0.60-1.20)
[2018-03-28] MEDS ORDERED: HALOPERIDOL 5 MG TABLET PO ONE (08:45)
[2018-03-28] MEDS ORDERED: LORazepam 2 MG TABLET PO ONE (08:45)
[2018-03-28 09:23] LABS: AMPHET/METH SCREEN,URINE NEGATIVE (NEGATIVE); BARBITURATE SCREEN, URINE NEGATIVE (NEGATIVE); BENZODIAZEPINES SCREEN,URINE POSITIVE (NEGATIVE); CANNABINOID SCREEN,URINE NEGATIVE (NEGATIVE); COCAINE SCREEN,URINE NEGATIVE (NEGATIVE); METHADONE SCREEN, URINE NEGATIVE (NEGATIVE); OPIATE SCREEN,URINE NEGATIVE (NEGATIVE)
[2018-03-28 09:24] LABS: PHENCYCLIDINE SCREEN,URINE NEGATIVE (NEGATIVE)
[2018-03-28 16:18] VITALS: BP 111/73
[2018-03-28] MEDS: LITHIUM CARBONATE 300 MG CAPSULE PO SCH (17:42)
[2018-03-28] MEDS: LORazepam 2 MG TABLET PO PRN (17:55)
[2018-03-28] MEDS: HALOPERIDOL 5 MG TABLET PO PRN (17:55)
[2018-03-28] MEDS: SIMVASTATIN 10 MG TABLET PO SCH (21:20)
[2018-03-28] MEDS: ZOLPIDEM TARTRATE 10 MG TABLET PO PRN (21:20)
[2018-03-28] MEDS: HALOPERIDOL 10 MG TABLET PO SCH (21:20)
[2018-03-29 00:24] VITALS: BP 113/78
[2018-03-29] MEDS: LORazepam 2 MG TABLET PO PRN ×3 (06:34→16:21)
[2018-03-29] MEDS: HALOPERIDOL 5 MG TABLET PO PRN ×2 (06:34→16:21)
[2018-03-29] MEDS ORDERED: ACETAMINOPHEN 325 MG TABLET PO PRN (06:45)
[2018-03-29] MEDS ORDERED: ONDANSETRON HCL 4 MG TABLET PO PRN (06:45)
[2018-03-29] MEDS ORDERED: PETROLATUM,WHITE 71 GM JELLY TP PRN (06:45)
[2018-03-29] MEDS ORDERED: IBUPROFEN 600 MG TABLET PO PRN (06:45)
[2018-03-29] MEDS ORDERED: MAG HYDROX/AL HYDROX/SIMETH ES 30 ML SUSPENSION UDCUP PO PRN (06:45)
[2018-03-29] MEDS ORDERED: ALBUTEROL SULFATE HFA 90 MCG/PUFF 8 GM INHALER IH PRN (06:45)
[2018-03-29] MEDS ORDERED: LOPERAMIDE HCL 2 MG CAPSULE PO PRN (06:45)
[2018-03-29] MEDS ORDERED: CloNIDine HCL 0.1 MG TABLET PO PRN (06:45)
[2018-03-29] MEDS ORDERED: BENZOCAINE/MENTHOL LOZENGE MM PRN (06:45)
[2018-03-29] MEDS ORDERED: MAGNESIUM HYDROXIDE SUSPENSION 30 ML UDCUP PO PRN (06:45)
[2018-03-29] MEDS ORDERED: BACITRACIN 28.4 GM OINTMENT TP PRN (06:45)
[2018-03-29 08:35] VITALS: BP 126/81
[2018-03-29] MEDS: CHOLECALCIFEROL (VIT D3) 1,000 UNITS TABLET PO SCH (09:28)
[2018-03-29] MEDS: LITHIUM CARBONATE 300 MG CAPSULE PO SCH ×2 (09:28→17:22)
[2018-03-29 16:13] VITALS: BP 119/69
[2018-03-29] MEDS: SIMVASTATIN 10 MG TABLET PO SCH (21:01)
[2018-03-29] MEDS: HALOPERIDOL 10 MG TABLET PO SCH (21:01)
[2018-03-30 03:39] VITALS: BP 114/78
[2018-03-30] MEDS: LORazepam 2 MG TABLET PO PRN ×2 (08:27→16:33)
[2018-03-30] MEDS: HALOPERIDOL 5 MG TABLET PO PRN ×2 (08:27→16:33)
[2018-03-30] MEDS: LITHIUM CARBONATE 300 MG CAPSULE PO SCH ×2 (08:27→16:33)
[2018-03-30] MEDS: CHOLECALCIFEROL (VIT D3) 1,000 UNITS TABLET PO SCH (08:27)
[2018-03-30 08:53] VITALS: BP 121/76
[2018-03-30 16:23] VITALS: BP 124/76
[2018-03-30] MEDS: HALOPERIDOL 10 MG TABLET PO SCH (20:23)
[2018-03-30] MEDS: SIMVASTATIN 10 MG TABLET PO SCH (20:23)
[2018-03-31 03:22] VITALS: BP 127/68
[2018-03-31] MEDS: LORazepam 2 MG TABLET PO PRN ×2 (06:10→16:14)
[2018-03-31] MEDS: CHOLECALCIFEROL (VIT D3) 1,000 UNITS TABLET PO SCH (08:11)
[2018-03-31] MEDS: HALOPERIDOL 5 MG TABLET PO PRN ×2 (08:11→16:14)
[2018-03-31] MEDS: LITHIUM CARBONATE 300 MG CAPSULE PO SCH ×2 (08:12→16:15)
[2018-03-31 08:42] VITALS: BP 100/60
[2018-03-31] MEDS ORDERED: LORazepam 2 MG/ML VIAL ONE (11:49)
[2018-03-31] MEDS ORDERED: DiphenhydrAMINE HCL 50 MG/ML VIAL ONE (11:50)
[2018-03-31] MEDS ORDERED: HALOPERIDOL LACTATE 5 MG/ML VIAL ONE (11:50)
[2018-03-31] MEDS ORDERED: HALOPERIDOL LACTATE 5 MG/ML VIAL IM ONE (12:00)
[2018-03-31] MEDS ORDERED: DiphenhydrAMINE HCL 50 MG/ML VIAL IM ONE (12:00)
[2018-03-31] MEDS ORDERED: LORazepam 2 MG/ML VIAL IM ONE (12:00)
[2018-03-31 16:16] VITALS: BP 109/64
[2018-03-31] MEDS: HALOPERIDOL 10 MG TABLET PO SCH (20:25)
[2018-03-31] MEDS: ZOLPIDEM TARTRATE 10 MG TABLET PO PRN (20:25)
[2018-03-31] MEDS: SIMVASTATIN 10 MG TABLET PO SCH (20:26)
[2018-04-01] MEDS: LITHIUM CARBONATE 300 MG CAPSULE PO SCH ×2 (08:24→16:18)
[2018-04-01] MEDS: CHOLECALCIFEROL (VIT D3) 1,000 UNITS TABLET PO SCH (08:24)
[2018-04-01] MEDS: LORazepam 2 MG TABLET PO PRN ×2 (08:24→16:18)
[2018-04-01] MEDS: HALOPERIDOL 5 MG TABLET PO PRN ×2 (08:24→16:18)
[2018-04-01 08:41] VITALS: BP 122/67
[2018-04-01 16:32] VITALS: BP 123/65
[2018-04-01] MEDS: HALOPERIDOL 10 MG TABLET PO SCH (20:31)
[2018-04-01] MEDS: ZOLPIDEM TARTRATE 10 MG TABLET PO PRN (20:31)
[2018-04-01] MEDS: SIMVASTATIN 10 MG TABLET PO SCH (20:52)
[2018-04-02] MEDS: HALOPERIDOL 5 MG TABLET PO PRN ×3 (04:12→15:55)
[2018-04-02] MEDS: LORazepam 2 MG TABLET PO PRN ×3 (04:13→15:55)
[2018-04-02 04:41] VITALS: BP 122/70
[2018-04-02] MEDS: LITHIUM CARBONATE 300 MG CAPSULE PO SCH ×2 (08:19→16:02)
[2018-04-02] MEDS: CHOLECALCIFEROL (VIT D3) 1,000 UNITS TABLET PO SCH (08:19)
[2018-04-02 08:39] VITALS: BP 122/71
[2018-04-02 16:15] VITALS: BP 110/67
[2018-04-02] MEDS ORDERED: DiphenhydrAMINE HCL 50 MG/ML VIAL IM ONE (16:45)
[2018-04-02] MEDS ORDERED: LORazepam 2 MG/ML VIAL IM ONE (16:45)
[2018-04-02] MEDS ORDERED: HALOPERIDOL LACTATE 5 MG/ML VIAL IM ONE (16:45)
[2018-04-02] MEDS ORDERED: DiphenhydrAMINE HCL 50 MG/ML VIAL ONE (16:47)
[2018-04-02] MEDS ORDERED: HALOPERIDOL LACTATE 5 MG/ML VIAL ONE (16:47)
[2018-04-02] MEDS ORDERED: LORazepam 2 MG/ML VIAL ONE (16:47)
[2018-04-02] MEDS: HALOPERIDOL 10 MG TABLET PO SCH (20:40)
[2018-04-02] MEDS: SIMVASTATIN 10 MG TABLET PO SCH (20:40)
[2018-04-02] MEDS: ZOLPIDEM TARTRATE 10 MG TABLET PO PRN (20:40)
[2018-04-03 04:12] VITALS: BP 122/74
[2018-04-03 08:27] VITALS: BP 118/79
[2018-04-03] MEDS: LITHIUM CARBONATE 300 MG CAPSULE PO SCH ×2 (08:28→16:26)
[2018-04-03] MEDS: CHOLECALCIFEROL (VIT D3) 1,000 UNITS TABLET PO SCH (08:28)
[2018-04-03] MEDS: LORazepam 2 MG TABLET PO PRN ×2 (08:42→16:26)
[2018-04-03] MEDS: HALOPERIDOL 5 MG TABLET PO PRN ×2 (09:01→17:05)
[2018-04-03 16:37] VITALS: BP 101/68
[2018-04-03] MEDS ORDERED: LORazepam 2 MG/ML VIAL ONE (18:24)
[2018-04-03] MEDS ORDERED: HALOPERIDOL LACTATE 5 MG/ML VIAL ONE (18:24)
[2018-04-03] MEDS ORDERED: DiphenhydrAMINE HCL 50 MG/ML VIAL ONE (18:24)
[2018-04-03] MEDS ORDERED: LORazepam 2 MG/ML VIAL IM ONE (18:30)
[2018-04-03] MEDS ORDERED: DiphenhydrAMINE HCL 50 MG/ML VIAL IM ONE (18:30)
[2018-04-03] MEDS ORDERED: HALOPERIDOL LACTATE 5 MG/ML VIAL IM ONE (18:30)
[2018-04-03] MEDS: SIMVASTATIN 10 MG TABLET PO SCH ×2 (21:00→21:48)
[2018-04-03] MEDS: HALOPERIDOL 10 MG TABLET PO SCH ×2 (21:00→21:48)
[2018-04-03] MEDS: ZOLPIDEM TARTRATE 10 MG TABLET PO PRN (21:48)
[2018-04-04 08:19] VITALS: BP 110/64
[2018-04-04] MEDS: LITHIUM CARBONATE 300 MG CAPSULE PO SCH ×3 (08:27→20:52)
[2018-04-04] MEDS: CHOLECALCIFEROL (VIT D3) 1,000 UNITS TABLET PO SCH (08:27)
[2018-04-04] MEDS: LORazepam 2 MG TABLET PO PRN ×2 (10:49→16:40)
[2018-04-04] MEDS: HALOPERIDOL 5 MG TABLET PO PRN ×2 (10:49→16:40)
[2018-04-04] MEDS: HALOPERIDOL 5 MG TABLET PO SCH (20:51)
[2018-04-04] MEDS: SIMVASTATIN 10 MG TABLET PO SCH (20:52)
[2018-04-05] MEDS: LITHIUM CARBONATE 300 MG CAPSULE PO SCH ×3 (08:39→16:53)
[2018-04-05] MEDS: CHOLECALCIFEROL (VIT D3) 1,000 UNITS TABLET PO SCH (08:39)
[2018-04-05] MEDS: LORazepam 2 MG TABLET PO PRN (08:56)
[2018-04-05] MEDS: HALOPERIDOL 5 MG TABLET PO PRN (09:22)
[2018-04-05 16:15] VITALS: BP 109/78
[2018-04-05] MEDS: SIMVASTATIN 10 MG TABLET PO SCH (20:39)
[2018-04-05] MEDS: ZOLPIDEM TARTRATE 10 MG TABLET PO PRN (20:39)
[2018-04-05] MEDS: HALOPERIDOL 5 MG TABLET PO SCH (20:39)
[2018-04-06] MEDS: CHOLECALCIFEROL (VIT D3) 1,000 UNITS TABLET PO SCH (09:36)
[2018-04-06] MEDS: LITHIUM CARBONATE 300 MG CAPSULE PO SCH ×3 (09:36→17:42)
[2018-04-06] MEDS: LORazepam 2 MG TABLET PO PRN ×2 (09:49→16:35)
[2018-04-06] MEDS: HALOPERIDOL 5 MG TABLET PO PRN ×2 (10:18→16:35)
[2018-04-06 14:32] VITALS: BP 120/72
[2018-04-06 16:06] VITALS: BP 108/66
[2018-04-06] MEDS: SIMVASTATIN 10 MG TABLET PO SCH (20:48)
[2018-04-06] MEDS: HALOPERIDOL 5 MG TABLET PO SCH (20:48)
[2018-04-06] MEDS: ZOLPIDEM TARTRATE 10 MG TABLET PO PRN (21:29)
[2018-04-07 05:30] VITALS: BP 114/70
[2018-04-07 08:24] VITALS: BP 105/67
[2018-04-07] MEDS: LORazepam 2 MG TABLET PO PRN ×2 (09:13→17:25)
[2018-04-07] MEDS: CHOLECALCIFEROL (VIT D3) 1,000 UNITS TABLET PO SCH (09:13)
[2018-04-07] MEDS: LITHIUM CARBONATE 300 MG CAPSULE PO SCH ×3 (09:13→17:02)
[2018-04-07] MEDS: HALOPERIDOL 5 MG TABLET PO PRN ×2 (09:14→17:25)
[2018-04-07 16:31] VITALS: BP 104/74
[2018-04-07] MEDS: SIMVASTATIN 10 MG TABLET PO SCH (21:02)
[2018-04-07] MEDS: HALOPERIDOL 5 MG TABLET PO SCH (21:03)
[2018-04-07] MEDS: ZOLPIDEM TARTRATE 10 MG TABLET PO PRN (21:48)
[2018-04-08 06:11] VITALS: BP 113/63
[2018-04-08 08:21] VITALS: BP 115/59
[2018-04-08] MEDS: CHOLECALCIFEROL (VIT D3) 1,000 UNITS TABLET PO SCH (09:00)
[2018-04-08] MEDS: LORazepam 2 MG TABLET PO PRN ×2 (09:00→16:40)
[2018-04-08] MEDS: LITHIUM CARBONATE 300 MG CAPSULE PO SCH ×3 (09:00→17:05)
[2018-04-08 16:13] VITALS: BP 113/70
[2018-04-08] MEDS: HALOPERIDOL 5 MG TABLET PO PRN (16:47)
[2018-04-08] MEDS: SIMVASTATIN 10 MG TABLET PO SCH (20:52)
[2018-04-08] MEDS: HALOPERIDOL 5 MG TABLET PO SCH (20:52)
[2018-04-08] MEDS: ZOLPIDEM TARTRATE 10 MG TABLET PO PRN (21:31)
[2018-04-09 06:45] VITALS: BP 102/69
[2018-04-09] MEDS: CHOLECALCIFEROL (VIT D3) 1,000 UNITS TABLET PO SCH (08:48)
[2018-04-09] MEDS: LITHIUM CARBONATE 300 MG CAPSULE PO SCH ×3 (08:48→16:19)
[2018-04-09] MEDS: LORazepam 2 MG TABLET PO PRN ×2 (08:50→16:20)
[2018-04-09 16:05] VITALS: BP 116/66
[2018-04-09] MEDS: HALOPERIDOL 5 MG TABLET PO PRN (16:20)
[2018-04-09] MEDS: SIMVASTATIN 10 MG TABLET PO SCH (20:21)
[2018-04-09] MEDS: HALOPERIDOL 5 MG TABLET PO SCH (20:21)
[2018-04-09] MEDS: ZOLPIDEM TARTRATE 10 MG TABLET PO PRN (21:14)
[2018-04-10 05:51] VITALS: BP 112/75
[2018-04-10 08:36] VITALS: BP 110/75
[2018-04-10] MEDS: LITHIUM CARBONATE 300 MG CAPSULE PO SCH ×3 (09:17→16:57)
[2018-04-10] MEDS: CHOLECALCIFEROL (VIT D3) 1,000 UNITS TABLET PO SCH (09:17)
[2018-04-10] MEDS ORDERED: LORazepam 2 MG/ML VIAL ONE (11:15)
[2018-04-10] MEDS ORDERED: LORazepam 2 MG/ML VIAL IM ONE (11:15)
[2018-04-10] MEDS ORDERED: DiphenhydrAMINE HCL 50 MG/ML VIAL IM ONE (11:15)
[2018-04-10] MEDS ORDERED: HALOPERIDOL LACTATE 5 MG/ML VIAL IM ONE (11:15)
[2018-04-10] MEDS: LORazepam 2 MG TABLET PO PRN ×2 (11:28→16:57)
[2018-04-10] MEDS: HALOPERIDOL 5 MG TABLET PO PRN ×2 (11:28→16:57)
[2018-04-10] MEDS ORDERED: BACITRACIN 28.4 GM OINTMENT TP PRN (12:30)
[2018-04-10 16:12] VITALS: BP 105/63
[2018-04-10] MEDS: HALOPERIDOL 5 MG TABLET PO SCH (21:07)
[2018-04-10] MEDS: SIMVASTATIN 10 MG TABLET PO SCH (21:08)
[2018-04-11 07:20] VITALS: BP 108/72
[2018-04-11] MEDS: LITHIUM CARBONATE 300 MG CAPSULE PO SCH ×3 (08:28→17:00)
[2018-04-11] MEDS: CHOLECALCIFEROL (VIT D3) 1,000 UNITS TABLET PO SCH (08:28)
[2018-04-11] MEDS: LORazepam 2 MG TABLET PO PRN ×2 (08:30→16:43)
[2018-04-11] MEDS: HALOPERIDOL 5 MG TABLET PO PRN ×2 (08:54→16:44)
[2018-04-11 09:20] VITALS: BP 110/72
[2018-04-11 17:06] VITALS: BP 110/64
[2018-04-11] MEDS: HALOPERIDOL 5 MG TABLET PO SCH (20:41)
[2018-04-11] MEDS: SIMVASTATIN 10 MG TABLET PO SCH (20:41)
[2018-04-11] MEDS: ZOLPIDEM TARTRATE 10 MG TABLET PO PRN (21:19)
[2018-04-12 04:34] VITALS: BP 112/70
[2018-04-12 08:12] VITALS: BP 116/62
[2018-04-12] MEDS: LITHIUM CARBONATE 300 MG CAPSULE PO SCH ×3 (08:30→16:21)
[2018-04-12] MEDS: LORazepam 2 MG TABLET PO PRN (08:30)
[2018-04-12] MEDS: CHOLECALCIFEROL (VIT D3) 1,000 UNITS TABLET PO SCH (08:31)
[2018-04-12] MEDS: HALOPERIDOL 5 MG TABLET PO PRN (09:13)
[2018-04-12] MEDS ORDERED: VITAD1000 PO (14:31)
== END 2018-04-12 18:29 | disposition home or self-care (01) | DRG 750 ==
LOC: EMS 04:03 → B3A 15:00
PROVIDERS: ADMIT Psychiatry & Neurology Psychiatry; ATTEND Psychiatry & Neurology Psychiatry
DX: F20.0 Paranoid schizophrenia (principal); Z78.1 Physical restraint status; E55.9 Vitamin D deficiency, unspecified; Z91.19 Patient's noncompliance with other medical treatment and regimen; F15.10 Other stimulant abuse, uncomplicated; M79.675 Pain in left toe(s); F17.210 Nicotine dependence, cigarettes, uncomplicated; W22.8XXA Striking against or struck by other objects, initial encounter; E78.5 Hyperlipidemia, unspecified; G47.00 Insomnia, unspecified; F12.90 Cannabis use, unspecified, uncomplicated; F31.9 Bipolar disorder, unspecified; Y99.8 Other external cause status; Z59.0 Homelessness; Z79.899 Other long term (current) drug therapy; Z71.6 Tobacco abuse counseling; Z71.51 Drug abuse counseling and surveillance of drug abuser; Y92.238 Other place in hospital as the place of occurrence of the external cause
CPT/HCPCS: 82306; 84443; 99285; G0480; J1200; J1630; J2060; J3535

== ENCOUNTER 2018-05-09 11:42 | Emergency (ER) | payer MEDICAID | END 2018-05-09 12:16 | disposition left against medical advice (07) | LOC: EMS 11:44 | DX: Z53.21 Procedure and treatment not carried out due to patient leaving prior to being seen by health care provider (principal) ==

== ENCOUNTER 2018-05-09 19:03 | Emergency (ER) | payer MEDICAID, OTHER ==
[~2018-05-09] VITALS: Ht 157.5 cm; Wt 54.0 kg
[2018-05-09 19:41] LABS: BASOPHILS % (AUTO) 0.7 % (0.0-2.0); EOSINOPHILS % (AUTO) 3.3 % (1.0-6.0); HEMATOCRIT 33.5 % (36-46); HEMOGLOBIN 11.8 g/dL (12.0-16.0); LYMPHOCYTES # (AUTO) 2.5 K/uL (1.0-4.8); LYMPHOCYTES % (AUTO) 44.4 % (22.0-44.0); MEAN CORPUSCULAR HEMOGLOBIN 32.4 pg (26.0-34.0); MEAN CORPUSCULAR HGB CONC 35.2 G/dL (31.0-37.0); MEAN CORPUSCULAR VOLUME 92 fL (80-100); MONOCYTES # (AUTO) 0.5 K/uL (0.1-1.0); MONOCYTES % (AUTO) 9.2 % (2.0-9.0); NEUTROPHILS # (AUTO) 2.4 K/uL (1.8-7.7); NEUTROPHILS % (AUTO) 42.4 % (40.0-70.0); PLATELET COUNT (AUTO) 369 K/uL (150-450); RED BLOOD CELL COUNT(AUTO) 3.65 MIL/uL (4.00-5.20); RED CELL DISTRIBUTION WIDTH 13.8 % (11.5-14.5)
[2018-05-09 19:52] LABS: ANION GAP 6 mmol/L (8-16); CALCIUM, TOTAL 8.7 mg/dL (8.8-10.5); CARBON DIOXIDE 25 mmol/L (22-29); CHLORIDE 106 mmol/L (98-107); CREATININE 0.81 mg/dL (0.60-1.30); GLOMERULAR FILTR. RATE CALC > 60 mL/min (>60); GLUCOSE,RANDOM 84 mg/dL (70-110); POTASSIUM 3.1 mmol/L (3.5-5.1); SODIUM SERUM 137 mmol/L (136-145); UREA NITROGEN, BLOOD 17 mg/dL (7-18)
[2018-05-09 19:58] LABS: ALANINE AMINOTRANSFERASE 22 U/L (12-78); ALBUMIN 3.8 g/dL (3.4-5.0); ALKALINE PHOSPHATASE 60 U/L (46-116); ASPARTATE AMINOTRANSFERASE 19 U/L (15-37); BILIRUBIN,TOTAL 0.3 mg/dL (0.1-1.0); TOTAL PROTEIN, SERUM 7.4 g/dL (6.4-8.2)
[2018-05-09] MEDS ORDERED: POTASSIUM CHLORIDE 20 MEQ ER TABLET PO ONE (20:15)
[2018-05-09 20:42] LABS: AMPHET/METH SCREEN,URINE POSITIVE (NEGATIVE); BARBITURATE SCREEN, URINE NEGATIVE (NEGATIVE); BENZODIAZEPINES SCREEN,URINE POSITIVE (NEGATIVE); CANNABINOID SCREEN,URINE NEGATIVE (NEGATIVE); COCAINE SCREEN,URINE NEGATIVE (NEGATIVE); METHADONE SCREEN, URINE NEGATIVE (NEGATIVE); OPIATE SCREEN,URINE NEGATIVE (NEGATIVE)
[2018-05-09 20:53] LABS: PHENCYCLIDINE SCREEN,URINE NEGATIVE (NEGATIVE)
[2018-05-09 21:13] VITALS: BP 136/80
== END 2018-05-09 21:19 | disposition home or self-care (01) ==
LOC: EMS 19:04
DX: R20.2 Paresthesia of skin (principal); R45.1 Restlessness and agitation; E87.6 Hypokalemia; F15.10 Other stimulant abuse, uncomplicated; F31.9 Bipolar disorder, unspecified; F20.9 Schizophrenia, unspecified; F17.210 Nicotine dependence, cigarettes, uncomplicated; Z59.0 Homelessness
CPT/HCPCS: 36415; 80053; 80307; 84703; 85025; 99284; G0480

== ENCOUNTER 2018-05-10 19:11 | Emergency (ER) | payer OTHER ==
[~2018-05-10] VITALS: Ht 165.1 cm; Wt 80.0 kg
[2018-05-10 20:22] LABS: BASOPHILS % (AUTO) 0.8 % (0.0-2.0); EOSINOPHILS % (AUTO) 3.6 % (1.0-6.0); HEMOGLOBIN 12.8 g/dL (12.0-16.0); LYMPHOCYTES # (AUTO) 2.4 K/uL (1.0-4.8); LYMPHOCYTES % (AUTO) 36.1 % (22.0-44.0); MEAN CORPUSCULAR HEMOGLOBIN 32.2 pg (26.0-34.0); MEAN CORPUSCULAR HGB CONC 34.6 G/dL (31.0-37.0); MEAN CORPUSCULAR VOLUME 93 fL (80-100); MONOCYTES # (AUTO) 0.7 K/uL (0.1-1.0); MONOCYTES % (AUTO) 10.3 % (2.0-9.0); NEUTROPHILS # (AUTO) 3.3 K/uL (1.8-7.7); NEUTROPHILS % (AUTO) 49.2 % (40.0-70.0); PLATELET COUNT (AUTO) 398 K/uL (150-450); RED BLOOD CELL COUNT(AUTO) 3.98 MIL/uL (4.00-5.20); RED CELL DISTRIBUTION WIDTH 13.6 % (11.5-14.5)
[2018-05-10 20:32] LABS: ANION GAP 7 mmol/L (8-16); CALCIUM, TOTAL 9.1 mg/dL (8.8-10.5); CARBON DIOXIDE 25 mmol/L (22-29); CHLORIDE 108 mmol/L (98-107); CREATININE 0.83 mg/dL (0.60-1.30); GLOMERULAR FILTR. RATE CALC > 60 mL/min (>60); SODIUM SERUM 140 mmol/L (136-145); UREA NITROGEN, BLOOD 14 mg/dL (7-18)
[2018-05-10 20:39] LABS: ALANINE AMINOTRANSFERASE 28 U/L (12-78); ALBUMIN 4.1 g/dL (3.4-5.0); ALKALINE PHOSPHATASE 68 U/L (46-116); ASPARTATE AMINOTRANSFERASE 36 U/L (15-37); BILIRUBIN,TOTAL 0.5 mg/dL (0.1-1.0); TOTAL PROTEIN, SERUM 8.1 g/dL (6.4-8.2)
[2018-05-10 20:44] LABS: GLUCOSE,RANDOM 90 mg/dL (70-110)
[2018-05-11 01:30] VITALS: BP 125/69
[2018-05-11 07:56] LABS: AMPHET/METH SCREEN,URINE POSITIVE (NEGATIVE); BARBITURATE SCREEN, URINE NEGATIVE (NEGATIVE); BENZODIAZEPINES SCREEN,URINE POSITIVE (NEGATIVE); CANNABINOID SCREEN,URINE NEGATIVE (NEGATIVE); COCAINE SCREEN,URINE NEGATIVE (NEGATIVE); METHADONE SCREEN, URINE NEGATIVE (NEGATIVE); OPIATE SCREEN,URINE NEGATIVE (NEGATIVE)
[2018-05-11 08:03] LABS: PHENCYCLIDINE SCREEN,URINE NEGATIVE (NEGATIVE)
== END 2018-05-11 03:40 | disposition home or self-care (01) ==
LOC: EMS 19:12
DX: F20.9 Schizophrenia, unspecified (principal); F31.9 Bipolar disorder, unspecified; F17.210 Nicotine dependence, cigarettes, uncomplicated; F19.90 Other psychoactive substance use, unspecified, uncomplicated; Z59.0 Homelessness
CPT/HCPCS: 36415; 80053; 80307; 84703; 85025; 99284; G0480

== ENCOUNTER 2018-05-13 12:42 | Emergency (ER) | payer OTHER ==
[~2018-05-13] VITALS: Ht 160 cm; Wt 59.1 kg
[~2018-05-13 12:42] MED LIST changes: -SIMV-259 PO; -VITAD1000 PO
[2018-05-13] MEDS ORDERED: INSU100I3 SQ (12:44)
[2018-05-13] MEDS ORDERED: DiphenhydrAMINE HCL 50 MG/ML VIAL IM ONE (13:00)
[2018-05-13] MEDS ORDERED: HALOPERIDOL LACTATE 5 MG/ML VIAL IM ONE (13:00)
[2018-05-13] MEDS ORDERED: LORazepam 2 MG/ML VIAL IM ONE (13:00)
[2018-05-13 13:55] LABS: BASOPHILS % (AUTO) 0.7 % (0.0-2.0); EOSINOPHILS % (AUTO) 1.3 % (1.0-6.0); HEMOGLOBIN 11.7 g/dL (12.0-16.0); LYMPHOCYTES # (AUTO) 1.1 K/uL (1.0-4.8); LYMPHOCYTES % (AUTO) 23.6 % (22.0-44.0); MEAN CORPUSCULAR HEMOGLOBIN 31.7 pg (26.0-34.0); MEAN CORPUSCULAR HGB CONC 34.4 G/dL (31.0-37.0); MEAN CORPUSCULAR VOLUME 92 fL (80-100); MONOCYTES # (AUTO) 0.5 K/uL (0.1-1.0); MONOCYTES % (AUTO) 9.7 % (2.0-9.0); NEUTROPHILS % (AUTO) 64.7 % (40.0-70.0); PLATELET COUNT (AUTO) 397 K/uL (150-450); RED BLOOD CELL COUNT(AUTO) 3.69 MIL/uL (4.00-5.20); RED CELL DISTRIBUTION WIDTH 13.6 % (11.5-14.5)
[2018-05-13 14:13] LABS: ALANINE AMINOTRANSFERASE 24 U/L (12-78); ALBUMIN 3.8 g/dL (3.4-5.0); ALKALINE PHOSPHATASE 52 U/L (46-116); ANION GAP 9 mmol/L (8-16); ASPARTATE AMINOTRANSFERASE 22 U/L (15-37); BILIRUBIN,TOTAL 0.4 mg/dL (0.1-1.0); CALCIUM, TOTAL 8.6 mg/dL (8.8-10.5); CARBON DIOXIDE 27 mmol/L (22-29); CHLORIDE 104 mmol/L (98-107); GLOMERULAR FILTR. RATE CALC > 60 mL/min (>60); GLUCOSE,RANDOM 114 mg/dL (70-110); SODIUM SERUM 140 mmol/L (136-145); TOTAL PROTEIN, SERUM 7.4 g/dL (6.4-8.2); UREA NITROGEN, BLOOD 7 mg/dL (7-18)
[2018-05-13 14:14] LABS: POTASSIUM 2.7 mmol/L (3.5-5.1)
[2018-05-13] MEDS ORDERED: POTASSIUM CHLORIDE 20 MEQ ER TABLET PO ONE (14:30)
[2018-05-13 18:39] LABS: AMPHET/METH SCREEN,URINE POSITIVE (NEGATIVE); BARBITURATE SCREEN, URINE NEGATIVE (NEGATIVE); BENZODIAZEPINES SCREEN,URINE NEGATIVE (NEGATIVE); CANNABINOID SCREEN,URINE NEGATIVE (NEGATIVE); COCAINE SCREEN,URINE NEGATIVE (NEGATIVE); METHADONE SCREEN, URINE NEGATIVE (NEGATIVE); OPIATE SCREEN,URINE NEGATIVE (NEGATIVE)
[2018-05-13 18:43] LABS: PHENCYCLIDINE SCREEN,URINE NEGATIVE (NEGATIVE)
[2018-05-13 19:29] VITALS: BP 129/73
== END 2018-05-13 19:31 | disposition home or self-care (01) ==
LOC: EMS 12:43
DX: F15.10 Other stimulant abuse, uncomplicated (principal); F91.8 Other conduct disorders; F31.9 Bipolar disorder, unspecified; F20.9 Schizophrenia, unspecified; F17.210 Nicotine dependence, cigarettes, uncomplicated; Z59.0 Homelessness
CPT/HCPCS: 36415; 80053; 80307; 85025; 93005; 96372; 99285; G0480; J1200; J1630; J2060

== ENCOUNTER 2018-07-21 09:44 | Inpatient (IN) | payer MEDICAID, OTHER ==
[~2018-07-21] VITALS: Ht 160 cm; Wt 59.5 kg
[2018-07-21] MEDS ORDERED: DiphenhydrAMINE HCL 50 MG/ML VIAL IM ONE (10:30)
[2018-07-21] MEDS ORDERED: LORazepam 2 MG/ML VIAL IM ONE (10:30)
[2018-07-21] MEDS ORDERED: HALOPERIDOL LACTATE 5 MG/ML VIAL IM ONE (10:30)
[2018-07-21 10:36] LABS: AMPHET/METH SCREEN,URINE POSITIVE (NEGATIVE); BARBITURATE SCREEN, URINE NEGATIVE (NEGATIVE); BENZODIAZEPINES SCREEN,URINE NEGATIVE (NEGATIVE); CANNABINOID SCREEN,URINE NEGATIVE (NEGATIVE); COCAINE SCREEN,URINE NEGATIVE (NEGATIVE); METHADONE SCREEN, URINE NEGATIVE (NEGATIVE); OPIATE SCREEN,URINE NEGATIVE (NEGATIVE)
[2018-07-21 10:37] LABS: PHENCYCLIDINE SCREEN,URINE NEGATIVE (NEGATIVE)
[2018-07-21 10:40] LABS: BASOPHILS % (AUTO) 0.8 % (0.0-2.0); EOSINOPHILS % (AUTO) 1.8 % (1.0-6.0); HEMATOCRIT 39.1 % (36-46); HEMOGLOBIN 13.2 g/dL (12.0-16.0); LYMPHOCYTES # (AUTO) 2.4 K/uL (1.0-4.8); LYMPHOCYTES % (AUTO) 40.9 % (22.0-44.0); MEAN CORPUSCULAR HEMOGLOBIN 32.1 pg (26.0-34.0); MEAN CORPUSCULAR HGB CONC 33.9 G/dL (31.0-37.0); MEAN CORPUSCULAR VOLUME 95 fL (80-100); MONOCYTES # (AUTO) 0.5 K/uL (0.1-1.0); MONOCYTES % (AUTO) 8.1 % (2.0-9.0); NEUTROPHILS # (AUTO) 2.9 K/uL (1.8-7.7); NEUTROPHILS % (AUTO) 48.4 % (40.0-70.0); PLATELET COUNT (AUTO) 455 K/uL (150-450); RED BLOOD CELL COUNT(AUTO) 4.12 MIL/uL (4.00-5.20); RED CELL DISTRIBUTION WIDTH 13.7 % (11.5-14.5)
[2018-07-21 10:58] LABS: ANION GAP 8 mmol/L (8-16); CARBON DIOXIDE 29 mmol/L (22-29); CHLORIDE 103 mmol/L (98-107); CREATININE 0.79 mg/dL (0.60-1.30); GLOMERULAR FILTR. RATE CALC > 60 mL/min (>60); GLUCOSE,RANDOM 89 mg/dL (70-110); POTASSIUM 3.5 mmol/L (3.5-5.1); SODIUM SERUM 140 mmol/L (136-145); UREA NITROGEN, BLOOD 16 mg/dL (7-18)
[2018-07-21 11:03] LABS: ALANINE AMINOTRANSFERASE 37 U/L (12-78); ALBUMIN 3.8 g/dL (3.4-5.0); ALKALINE PHOSPHATASE 69 U/L (46-116); ASPARTATE AMINOTRANSFERASE 37 U/L (15-37); BILIRUBIN,TOTAL 0.4 mg/dL (0.1-1.0); TOTAL PROTEIN, SERUM 8.2 g/dL (6.4-8.2)
[2018-07-21 14:40] LABS: APPEARANCE,URINE TURBID (CLEAR); BILIRUBIN,URINE NEGATIVE (NEGATIVE); GLUCOSE, URINE (UA) NEGATIVE (NEGATIVE); KETONES,URINE NEGATIVE (NEGATIVE); LEUKOCYTE ESTERASE ,URINE SMALL (NEGATIVE); NITRATE,URINE POSITIVE (NEGATIVE); OCCULT BLOOD,URINE SMALL (NEGATIVE); PROTEIN,URINE NEGATIVE (NEGATIVE); UROBILINOGEN,URINE 0.2 mg/dL (<=1.0)
[2018-07-21 14:44] LABS: BACTERIA,URINE Moderate /HPF (None Seen); SQUAMOUS EPITHELIAL CELL,UR Few /LPF (None Seen)
[2018-07-21] MEDS: LORazepam 2 MG TABLET PO PRN (22:45)
[2018-07-21] MEDS: HALOPERIDOL 5 MG TABLET PO PRN (22:45)
[2018-07-22 06:06] LABS: CHOL/HDL RATIO 3.8 (3.9-5.7)
[2018-07-22 08:53] VITALS: BP 104/56
[2018-07-22] MEDS ORDERED: GuaiFENesin/D-METHORPHAN [SUGAR-FREE] 200-20MG/10 ML SYRUP UDCUP PO PRN (09:15)
[2018-07-22] MEDS ORDERED: MAG HYDROX/AL HYDROX/SIMETH ES 30 ML SUSPENSION UDCUP PO PRN (09:15)
[2018-07-22] MEDS ORDERED: ONDANSETRON HCL 4 MG TABLET PO PRN (09:15)
[2018-07-22] MEDS ORDERED: ACETAMINOPHEN 325 MG TABLET PO PRN (09:15)
[2018-07-22] MEDS ORDERED: NICOTINE 14 MG/24 HOUR PATCH TD PRN (09:15)
[2018-07-22] MEDS ORDERED: MAGNESIUM HYDROXIDE SUSPENSION 30 ML UDCUP PO PRN (09:15)
[2018-07-22] MEDS ORDERED: PETROLATUM,WHITE 71 GM JELLY TP PRN (09:15)
[2018-07-22] MEDS ORDERED: ALBUTEROL SULFATE HFA 90 MCG/PUFF 8 GM INHALER IH PRN (09:15)
[2018-07-22] MEDS ORDERED: LOPERAMIDE HCL 2 MG CAPSULE PO PRN (09:15)
[2018-07-22] MEDS ORDERED: CloNIDine HCL 0.1 MG TABLET PO PRN (09:15)
[2018-07-22] MEDS ORDERED: IBUPROFEN 400 MG TABLET PO PRN (09:15)
[2018-07-22] MEDS ORDERED: DOCUSATE SODIUM 100 MG CAPSULE PO PRN (09:15)
[2018-07-22] MEDS: CIPROFLOXACIN HCL 500 MG TABLET PO SCH ×2 (09:59→16:39)
[2018-07-22] MEDS: LITHIUM CARBONATE 300 MG CAPSULE PO SCH ×2 (13:36→16:39)
[2018-07-22] MEDS: LORazepam 2 MG TABLET PO PRN (16:39)
[2018-07-22 17:20] VITALS: BP 112/66
[2018-07-22] MEDS: HALOPERIDOL 10 MG TABLET PO SCH (20:27)
[2018-07-22] MEDS: SIMVASTATIN 10 MG TABLET PO SCH (20:27)
[2018-07-23 03:45] VITALS: BP 115/70
[2018-07-23 08:00] VITALS: BP 104/61
[2018-07-23] MEDS: CIPROFLOXACIN HCL 500 MG TABLET PO SCH ×2 (08:48→16:39)
[2018-07-23] MEDS: LITHIUM CARBONATE 300 MG CAPSULE PO SCH ×3 (08:48→17:11)
[2018-07-23] MEDS: HALOPERIDOL 5 MG TABLET PO PRN ×2 (08:48→17:03)
[2018-07-23] MEDS: LORazepam 2 MG TABLET PO PRN ×2 (08:48→17:03)
[2018-07-23 09:29] LABS: BASOPHILS % (AUTO) 1.1 % (0.0-2.0); EOSINOPHILS % (AUTO) 3.4 % (1.0-6.0); HEMATOCRIT 38.4 % (36-46); HEMOGLOBIN 12.7 g/dL (12.0-16.0); LYMPHOCYTES # (AUTO) 2.9 K/uL (1.0-4.8); LYMPHOCYTES % (AUTO) 51.7 % (22.0-44.0); MEAN CORPUSCULAR HEMOGLOBIN 32.1 pg (26.0-34.0); MEAN CORPUSCULAR HGB CONC 33.2 G/dL (31.0-37.0); MEAN CORPUSCULAR VOLUME 97 fL (80-100); MONOCYTES # (AUTO) 0.5 K/uL (0.1-1.0); MONOCYTES % (AUTO) 9.3 % (2.0-9.0); NEUTROPHILS # (AUTO) 1.9 K/uL (1.8-7.7); NEUTROPHILS % (AUTO) 34.5 % (40.0-70.0); PLATELET COUNT (AUTO) 447 K/uL (150-450); RED BLOOD CELL COUNT(AUTO) 3.98 MIL/uL (4.00-5.20); RED CELL DISTRIBUTION WIDTH 14.1 % (11.5-14.5)
[2018-07-23 09:58] LABS: ALANINE AMINOTRANSFERASE 25 U/L (12-78); ALBUMIN 3.4 g/dL (3.4-5.0); ALKALINE PHOSPHATASE 63 U/L (46-116); ANION GAP 6 mmol/L (8-16); ASPARTATE AMINOTRANSFERASE 23 U/L (15-37); BILIRUBIN,TOTAL 0.3 mg/dL (0.1-1.0); CALCIUM, TOTAL 9.3 mg/dL (8.8-10.5); CARBON DIOXIDE 26 mmol/L (22-29); CHLORIDE 105 mmol/L (98-107); CHOLESTEROL 246 mg/dL (131-200); CREATININE 0.79 mg/dL (0.60-1.30); GLOMERULAR FILTR. RATE CALC > 60 mL/min (>60); GLUCOSE,RANDOM 91 mg/dL (70-110); HDL CHOLESTEROL 62 mg/dL (40-60); LDL CHOL (CALC.) 174 mg/dL (0-130); POTASSIUM 4.4 mmol/L (3.5-5.1); SODIUM SERUM 137 mmol/L (136-145); THYROID STIMULATING HORMONE 1.85 uIU/mL (0.36-3.74); TOTAL PROTEIN, SERUM 7.7 g/dL (6.4-8.2); TRIGLYCERIDES 48 mg/dL (15-150); UREA NITROGEN, BLOOD 15 mg/dL (7-18)
[2018-07-23 09:59] LABS: HEMOGLOBIN A1C 5.4 % (4.5-6.2)
[2018-07-23 16:00] VITALS: BP 107/73
[2018-07-23] MEDS: HALOPERIDOL 10 MG TABLET PO SCH (20:38)
[2018-07-23] MEDS: SIMVASTATIN 10 MG TABLET PO SCH (20:38)
[2018-07-24 02:37] VITALS: BP 114/69
[2018-07-24 08:30] VITALS: BP 112/74
[2018-07-24] MEDS: CIPROFLOXACIN HCL 500 MG TABLET PO SCH ×2 (09:09→16:24)
[2018-07-24] MEDS: LITHIUM CARBONATE 300 MG CAPSULE PO SCH ×3 (09:09→16:23)
[2018-07-24 16:20] VITALS: BP 120/65
[2018-07-24] MEDS: LORazepam 2 MG TABLET PO PRN (16:23)
[2018-07-24] MEDS: ZOLPIDEM TARTRATE 10 MG TABLET PO PRN (20:21)
[2018-07-24] MEDS: HALOPERIDOL 10 MG TABLET PO SCH (20:21)
[2018-07-24] MEDS: SIMVASTATIN 10 MG TABLET PO SCH (20:21)
[2018-07-25 08:34] VITALS: BP 102/65
[2018-07-25] MEDS: LITHIUM CARBONATE 300 MG CAPSULE PO SCH ×3 (09:21→16:21)
[2018-07-25] MEDS: CIPROFLOXACIN HCL 500 MG TABLET PO SCH ×2 (09:21→16:20)
[2018-07-25] MEDS: LORazepam 2 MG TABLET PO PRN ×2 (12:31→16:54)
[2018-07-25] MEDS: HALOPERIDOL 5 MG TABLET PO PRN ×2 (12:31→16:54)
[2018-07-25 16:00] VITALS: BP 108/65
[2018-07-25] MEDS: HALOPERIDOL 10 MG TABLET PO SCH (20:17)
[2018-07-25] MEDS: SIMVASTATIN 10 MG TABLET PO SCH (20:17)
[2018-07-26 06:32] VITALS: BP 109/68
[2018-07-26 08:48] VITALS: BP 98/60
[2018-07-26] MEDS: CIPROFLOXACIN HCL 500 MG TABLET PO SCH ×2 (08:55→17:12)
[2018-07-26] MEDS: LITHIUM CARBONATE 300 MG CAPSULE PO SCH ×3 (08:56→17:12)
[2018-07-26 16:00] VITALS: BP 110/74
[2018-07-26] MEDS: LORazepam 2 MG TABLET PO PRN (16:33)
[2018-07-26] MEDS: SIMVASTATIN 10 MG TABLET PO SCH (21:05)
[2018-07-26] MEDS: HALOPERIDOL 10 MG TABLET PO SCH (21:05)
[2018-07-26] MEDS: ZOLPIDEM TARTRATE 10 MG TABLET PO PRN (21:30)
[2018-07-27 08:13] VITALS: BP 110/68
[2018-07-27] MEDS: LORazepam 2 MG TABLET PO PRN ×2 (08:14→16:26)
[2018-07-27] MEDS: CIPROFLOXACIN HCL 500 MG TABLET PO SCH ×2 (08:14→16:10)
[2018-07-27] MEDS: LITHIUM CARBONATE 300 MG CAPSULE PO SCH ×3 (08:14→16:10)
[2018-07-27] MEDS: HALOPERIDOL 5 MG TABLET PO PRN (16:26)
[2018-07-27 18:10] VITALS: BP 101/54
[2018-07-27] MEDS: HALOPERIDOL 10 MG TABLET PO SCH (20:17)
[2018-07-27] MEDS: SIMVASTATIN 10 MG TABLET PO SCH (20:17)
[2018-07-28 06:53] VITALS: BP 105/62
[2018-07-28 08:18] VITALS: BP 108/74
[2018-07-28] MEDS: LITHIUM CARBONATE 300 MG CAPSULE PO SCH ×3 (09:25→16:51)
[2018-07-28] MEDS: LORazepam 2 MG TABLET PO PRN ×2 (09:25→16:21)
[2018-07-28] MEDS: CIPROFLOXACIN HCL 500 MG TABLET PO SCH ×2 (09:25→16:51)
[2018-07-28] MEDS: HALOPERIDOL 5 MG TABLET PO PRN ×2 (09:25→16:21)
[2018-07-28 16:48] VITALS: BP 110/65
[2018-07-28] MEDS: SIMVASTATIN 10 MG TABLET PO SCH (20:16)
[2018-07-28] MEDS: HALOPERIDOL 10 MG TABLET PO SCH (20:16)
[2018-07-28] MEDS: ZOLPIDEM TARTRATE 10 MG TABLET PO PRN (21:07)
[2018-07-29 05:05] VITALS: BP 105/62
[2018-07-29 08:10] VITALS: BP 96/64
[2018-07-29] MEDS: LITHIUM CARBONATE 300 MG CAPSULE PO SCH ×3 (09:13→16:58)
[2018-07-29] MEDS: CIPROFLOXACIN HCL 500 MG TABLET PO SCH ×2 (09:13→16:58)
[2018-07-29] MEDS: LORazepam 2 MG TABLET PO PRN ×2 (11:41→16:58)
[2018-07-29 16:35] VITALS: BP 116/70
[2018-07-29] MEDS: HALOPERIDOL 5 MG TABLET PO PRN (16:58)
[2018-07-29] MEDS: HALOPERIDOL 10 MG TABLET PO SCH (20:51)
[2018-07-29] MEDS: ZOLPIDEM TARTRATE 10 MG TABLET PO PRN (20:51)
[2018-07-29] MEDS: SIMVASTATIN 10 MG TABLET PO SCH (20:51)
[2018-07-30 04:51] VITALS: BP 107/80
[2018-07-30 08:13] VITALS: BP 110/78
[2018-07-30] MEDS: LITHIUM CARBONATE 300 MG CAPSULE PO SCH ×2 (08:31→13:28)
[2018-07-30] MEDS: CIPROFLOXACIN HCL 500 MG TABLET PO SCH (08:31)
[2018-07-30] MEDS: LORazepam 2 MG TABLET PO PRN (08:35)
[2018-07-30] MEDS: HALOPERIDOL 5 MG TABLET PO PRN (09:01)
[2018-07-30] MEDS ORDERED: LITH300C3 PO (13:44)
[2018-07-30] MEDS ORDERED: HALO10 PO (13:44)
[2018-07-30] MEDS ORDERED: SIMV-259 PO (13:44)
[2018-07-30] MEDS ORDERED: CIP250 PO (13:44)
== END 2018-07-30 15:13 | disposition home or self-care (01) | DRG 750 ==
LOC: EMS 10:00 → B3A 07-22 07:00
PROVIDERS: ADMIT Psychiatry & Neurology Psychiatry; ATTEND Psychiatry & Neurology Psychiatry
DX: F25.0 Schizoaffective disorder, bipolar type (principal); F15.20 Other stimulant dependence, uncomplicated; R45.851 Suicidal ideations; F17.200 Nicotine dependence, unspecified, uncomplicated; E78.5 Hyperlipidemia, unspecified; F41.9 Anxiety disorder, unspecified; N39.0 Urinary tract infection, site not specified; R45.87 Impulsiveness; Z59.0 Homelessness
CPT/HCPCS: 83036; 84443; 87086; 96372; 99285; G0480; J1200; J1630; J2060; J3535

== ENCOUNTER 2018-11-20 09:33 | Inpatient (IN) | payer MEDICAID ==
[~2018-11-20] VITALS: Ht 167.6 cm; Wt 60.8 kg
[~2018-11-20 09:33] MED LIST changes: +CIP250 PO; +SIMV-259 PO
[2018-11-20 10:05] VITALS: BP 153/95
[2018-11-20] MEDS ORDERED: LORazepam 2 MG/ML VIAL IM ONE (10:15)
[2018-11-20] MEDS ORDERED: DiphenhydrAMINE HCL 50 MG/ML VIAL IM ONE (10:15)
[2018-11-20] MEDS ORDERED: HALOPERIDOL LACTATE 5 MG/ML VIAL IM ONE (10:15)
[2018-11-20] MEDS ORDERED: DiphenhydrAMINE HCL 50 MG/ML VIAL ONE (10:20)
[2018-11-20] MEDS ORDERED: LORazepam 2 MG/ML VIAL ONE (10:20)
[2018-11-20] MEDS ORDERED: HALOPERIDOL LACTATE 5 MG/ML VIAL ONE (10:20)
[2018-11-20 11:30] VITALS: BP 135/70
[2018-11-20] MEDS: LITHIUM CARBONATE 300 MG CAPSULE PO SCH ×2 (13:00→17:11)
[2018-11-20] MEDS: LORazepam 2 MG TABLET PO PRN (17:11)
[2018-11-20] MEDS: HALOPERIDOL 5 MG TABLET PO PRN (17:12)
[2018-11-20] MEDS: HALOPERIDOL 10 MG TABLET PO SCH (20:21)
[2018-11-20] MEDS: ZOLPIDEM TARTRATE 10 MG TABLET PO PRN (20:21)
[2018-11-21] MEDS: LITHIUM CARBONATE 300 MG CAPSULE PO SCH ×3 (08:45→18:05)
[2018-11-21] MEDS: LORazepam 2 MG TABLET PO PRN ×2 (08:48→17:03)
[2018-11-21] MEDS: HALOPERIDOL 5 MG TABLET PO PRN ×2 (10:20→17:03)
[2018-11-21 16:41] VITALS: BP 111/76
[2018-11-21] MEDS: HALOPERIDOL 10 MG TABLET PO SCH (20:19)
[2018-11-22 05:29] VITALS: BP 112/75
[2018-11-22] MEDS: LITHIUM CARBONATE 300 MG CAPSULE PO SCH ×3 (08:08→16:29)
[2018-11-22] MEDS: LORazepam 2 MG TABLET PO PRN (08:54)
[2018-11-22] MEDS: HALOPERIDOL 5 MG TABLET PO PRN (08:54)
[2018-11-22 09:21] LABS: BASOPHILS % (AUTO) 0.7 % (0.0-2.0); EOSINOPHILS % (AUTO) 4.6 % (1.0-6.0); HEMATOCRIT 38.6 % (36-46); HEMOGLOBIN 12.9 g/dL (12.0-16.0); LYMPHOCYTES # (AUTO) 1.7 K/uL (1.0-4.8); LYMPHOCYTES % (AUTO) 31.9 % (22.0-44.0); MEAN CORPUSCULAR HGB CONC 33.5 G/dL (31.0-37.0); MEAN CORPUSCULAR VOLUME 96 fL (80-100); MONOCYTES # (AUTO) 0.4 K/uL (0.1-1.0); MONOCYTES % (AUTO) 7.9 % (2.0-9.0); NEUTROPHILS # (AUTO) 2.9 K/uL (1.8-7.7); NEUTROPHILS % (AUTO) 54.9 % (40.0-70.0); PLATELET COUNT (AUTO) 476 K/uL (150-450); RED BLOOD CELL COUNT(AUTO) 4.03 MIL/uL (4.00-5.20); RED CELL DISTRIBUTION WIDTH 14.3 % (11.5-14.5)
[2018-11-22 09:42] LABS: ALANINE AMINOTRANSFERASE 18 U/L (12-78); ALBUMIN 3.3 g/dL (3.4-5.0); ALKALINE PHOSPHATASE 59 U/L (46-116); ANION GAP 9 mmol/L (8-16); ASPARTATE AMINOTRANSFERASE 19 U/L (15-37); BILIRUBIN,TOTAL 0.2 mg/dL (0.1-1.0); CALCIUM, TOTAL 9.2 mg/dL (8.8-10.5); CARBON DIOXIDE 25 mmol/L (22-29); CHLORIDE 103 mmol/L (98-107); CHOL/HDL RATIO 4.6 (3.9-5.7); CHOLESTEROL 253 mg/dL (131-200); CREATININE 0.62 mg/dL (0.60-1.30); FREE T4 (FREE THYROXINE) 0.81 ng/dL (0.76-1.46); GLOMERULAR FILTR. RATE CALC > 60 mL/min (>60); GLUCOSE,RANDOM 114 mg/dL (70-110); HCG,QUANTITATIVE < 1 mIU/mL (0-6); HDL CHOLESTEROL 55 mg/dL (40-60); LDL CHOL (CALC.) 184 mg/dL (0-130); POTASSIUM 4.2 mmol/L (3.5-5.1); SODIUM SERUM 137 mmol/L (136-145); THYROID STIMULATING HORMONE 1.83 uIU/mL (0.36-3.74); TOTAL PROTEIN, SERUM 7.4 g/dL (6.4-8.2); TRIGLYCERIDES 68 mg/dL (15-150); UREA NITROGEN, BLOOD 17 mg/dL (7-18)
[2018-11-22 10:03] LABS: HEMOGLOBIN A1C 5.9 % (4.5-6.2)
[2018-11-22] MEDS ORDERED: DOCUSATE SODIUM 100 MG CAPSULE PO PRN (15:15)
[2018-11-22] MEDS ORDERED: IBUPROFEN 400 MG TABLET PO PRN (15:15)
[2018-11-22] MEDS ORDERED: ALBUTEROL SULFATE HFA 90 MCG/PUFF 8 GM INHALER IH PRN (15:15)
[2018-11-22] MEDS ORDERED: CloNIDine HCL 0.1 MG TABLET PO PRN (15:15)
[2018-11-22] MEDS ORDERED: NICOTINE 14 MG/24 HOUR PATCH TD PRN (15:15)
[2018-11-22] MEDS ORDERED: GuaiFENesin/D-METHORPHAN [SUGAR-FREE] 200-20MG/10 ML SYRUP UDCUP PO PRN (15:15)
[2018-11-22] MEDS ORDERED: MAG HYDROX/AL HYDROX/SIMETH ES 30 ML SUSPENSION UDCUP PO PRN (15:15)
[2018-11-22] MEDS ORDERED: PETROLATUM,WHITE 71 GM JELLY TP PRN (15:15)
[2018-11-22] MEDS ORDERED: MAGNESIUM HYDROXIDE SUSPENSION 30 ML UDCUP PO PRN (15:15)
[2018-11-22] MEDS ORDERED: ACETAMINOPHEN 325 MG TABLET PO PRN (15:15)
[2018-11-22] MEDS ORDERED: LOPERAMIDE HCL 2 MG CAPSULE PO PRN (15:15)
[2018-11-22] MEDS ORDERED: ONDANSETRON HCL 4 MG TABLET PO PRN (15:15)
[2018-11-22] MEDS: HALOPERIDOL 10 MG TABLET PO SCH (20:53)
[2018-11-23 07:21] VITALS: BP 124/79
[2018-11-23 08:18] VITALS: BP 118/69
[2018-11-23] MEDS: LITHIUM CARBONATE 300 MG CAPSULE PO SCH ×3 (08:22→16:09)
[2018-11-23] MEDS: LORazepam 2 MG TABLET PO PRN ×2 (08:22→16:09)
[2018-11-23] MEDS: HALOPERIDOL 5 MG TABLET PO PRN (08:58)
[2018-11-23 17:46] VITALS: BP 106/71
[2018-11-23] MEDS: HALOPERIDOL 10 MG TABLET PO SCH (20:07)
[2018-11-24 08:18] VITALS: BP 123/64
[2018-11-24] MEDS: LITHIUM CARBONATE 300 MG CAPSULE PO SCH ×3 (08:18→17:38)
[2018-11-24] MEDS: LORazepam 2 MG TABLET PO PRN (17:38)
[2018-11-24 19:13] VITALS: BP 120/70
[2018-11-24] MEDS: HALOPERIDOL 10 MG TABLET PO SCH (20:54)
[2018-11-24] MEDS: ZOLPIDEM TARTRATE 10 MG TABLET PO PRN (22:58)
[2018-11-25] MEDS ORDERED: DiphenhydrAMINE HCL 50 MG/ML VIAL ONE (05:25)
[2018-11-25] MEDS ORDERED: LORazepam 2 MG/ML VIAL ONE (05:25)
[2018-11-25] MEDS ORDERED: HALOPERIDOL LACTATE 5 MG/ML VIAL ONE (05:25)
[2018-11-25] MEDS ORDERED: DiphenhydrAMINE HCL 50 MG/ML VIAL IM ONE (05:30)
[2018-11-25] MEDS ORDERED: LORazepam 2 MG/ML VIAL IM ONE (05:30)
[2018-11-25] MEDS ORDERED: HALOPERIDOL LACTATE 5 MG/ML VIAL IM ONE (05:30)
[2018-11-25 05:37] VITALS: BP 122/77
[2018-11-25] MEDS: LITHIUM CARBONATE 300 MG CAPSULE PO SCH ×3 (08:21→16:49)
[2018-11-25] MEDS: HALOPERIDOL 5 MG TABLET PO PRN (09:04)
[2018-11-25] MEDS: LORazepam 2 MG TABLET PO PRN ×2 (09:04→16:49)
[2018-11-25 09:10] VITALS: BP 113/77
[2018-11-25 19:06] VITALS: BP 117/74
[2018-11-25] MEDS: HALOPERIDOL 10 MG TABLET PO SCH (20:28)
[2018-11-25] MEDS: ZOLPIDEM TARTRATE 10 MG TABLET PO PRN (20:28)
[2018-11-26 08:21] VITALS: BP 123/69
[2018-11-26] MEDS: LITHIUM CARBONATE 300 MG CAPSULE PO SCH (09:31)
[2018-11-26] MEDS: LORazepam 2 MG TABLET PO PRN ×2 (09:31→16:17)
[2018-11-26] MEDS: HALOPERIDOL 5 MG TABLET PO PRN (09:31)
[2018-11-26] MEDS ORDERED: HALOPERIDOL LACTATE 5 MG/ML VIAL ONE (12:18)
[2018-11-26] MEDS ORDERED: DiphenhydrAMINE HCL 50 MG/ML VIAL ONE (12:19)
[2018-11-26] MEDS ORDERED: LORazepam 2 MG/ML VIAL ONE (12:20)
[2018-11-26] MEDS ORDERED: DiphenhydrAMINE HCL 50 MG/ML VIAL IM ONE (12:30)
[2018-11-26] MEDS ORDERED: LORazepam 2 MG/ML VIAL IM ONE (12:30)
[2018-11-26] MEDS ORDERED: HALOPERIDOL LACTATE 5 MG/ML VIAL IM ONE (12:30)
[2018-11-26] MEDS: LITHIUM CARBONATE 300 MG TABLET PO SCH ×2 (13:00→16:19)
[2018-11-26 16:00] VITALS: BP 113/64
[2018-11-26] MEDS: HALOPERIDOL 10 MG TABLET PO SCH (20:13)
[2018-11-26] MEDS: ZOLPIDEM TARTRATE 10 MG TABLET PO PRN (22:24)
[2018-11-27 06:40] VITALS: BP 110/60
[2018-11-27] MEDS: LORazepam 2 MG TABLET PO PRN ×2 (08:31→12:36)
[2018-11-27] MEDS: LITHIUM CARBONATE 450 MG ER TABLET PO SCH ×3 (08:31→16:59)
[2018-11-27] MEDS: HALOPERIDOL 5 MG TABLET PO PRN (08:31)
[2018-11-27 17:14] VITALS: BP 110/60
[2018-11-27] MEDS: HALOPERIDOL 10 MG TABLET PO SCH (21:08)
[2018-11-27] MEDS: ZOLPIDEM TARTRATE 10 MG TABLET PO PRN (21:08)
[2018-11-28 06:24] VITALS: BP 116/71
[2018-11-28] MEDS: LITHIUM CARBONATE 450 MG ER TABLET PO SCH ×3 (08:20→17:11)
[2018-11-28] MEDS: HALOPERIDOL 5 MG TABLET PO PRN (08:21)
[2018-11-28] MEDS: LORazepam 2 MG TABLET PO PRN ×2 (08:21→17:11)
[2018-11-28 08:26] VITALS: BP 117/71
[2018-11-28] MEDS ORDERED: DiphenhydrAMINE HCL 50 MG/ML VIAL ONE (09:52)
[2018-11-28] MEDS ORDERED: LORazepam 2 MG/ML VIAL ONE (09:52)
[2018-11-28] MEDS ORDERED: HALOPERIDOL LACTATE 5 MG/ML VIAL ONE (09:52)
[2018-11-28] MEDS ORDERED: LORazepam 2 MG/ML VIAL IM ONE (11:00)
[2018-11-28] MEDS ORDERED: DiphenhydrAMINE HCL 50 MG/ML VIAL IM ONE (11:00)
[2018-11-28] MEDS ORDERED: HALOPERIDOL LACTATE 5 MG/ML VIAL IM ONE (11:00)
[2018-11-28 16:27] VITALS: BP 107/68
[2018-11-28] MEDS: HALOPERIDOL 10 MG TABLET PO SCH (21:23)
[2018-11-29] VITALS: BP 118/70
[2018-11-29] MEDS: LITHIUM CARBONATE 450 MG ER TABLET PO SCH ×3 (08:27→17:12)
[2018-11-29] MEDS: HALOPERIDOL 5 MG TABLET PO PRN (08:27)
[2018-11-29] MEDS: LORazepam 2 MG TABLET PO PRN ×2 (08:27→12:40)
[2018-11-29 17:34] VITALS: BP 115/61
[2018-11-29] MEDS: HALOPERIDOL 10 MG TABLET PO SCH (21:25)
[2018-11-30 01:54] VITALS: BP 118/63
[2018-11-30 08:05] VITALS: BP 101/56
[2018-11-30] MEDS: LITHIUM CARBONATE 450 MG ER TABLET PO SCH ×3 (09:00→17:38)
[2018-11-30] MEDS: LORazepam 2 MG TABLET PO PRN (09:00)
[2018-11-30] MEDS ORDERED: LITH300T PO (11:52)
== END 2018-11-30 17:20 | disposition home or self-care (01) | DRG 750 ==
LOC: B3A 10:16
PROVIDERS: ADMIT Psychiatry & Neurology Psychiatry; ATTEND Psychiatry & Neurology Psychiatry
DX: F25.0 Schizoaffective disorder, bipolar type (principal); Z59.0 Homelessness; E78.5 Hyperlipidemia, unspecified; F15.90 Other stimulant use, unspecified, uncomplicated; F17.200 Nicotine dependence, unspecified, uncomplicated; F41.9 Anxiety disorder, unspecified; K59.00 Constipation, unspecified; R45.87 Impulsiveness; R79.89 Other specified abnormal findings of blood chemistry
CPT/HCPCS: 83036; 84439; 84443; 90686; J1200; J1630; J2060

== ENCOUNTER 2019-02-02 01:57 | Emergency (ER) | payer MEDICAID, OTHER ==
[~2019-02-02] VITALS: Ht 165.1 cm; Wt 63.6 kg
[~2019-02-02 01:57] MED LIST changes: -CIP250 PO; -LITH300C3 PO; +LITH300T PO; -SIMV-259 PO
[2019-02-02 03:53] LABS: BASOPHILS % (AUTO) 0.8 % (0.0-2.0); EOSINOPHILS % (AUTO) 2.6 % (1.0-6.0); HEMATOCRIT 35.2 % (36-46); HEMOGLOBIN 11.8 g/dL (12.0-16.0); LYMPHOCYTES # (AUTO) 2.2 K/uL (1.0-4.8); LYMPHOCYTES % (AUTO) 31.9 % (22.0-44.0); MEAN CORPUSCULAR HEMOGLOBIN 31.6 pg (26.0-34.0); MEAN CORPUSCULAR HGB CONC 33.5 G/dL (31.0-37.0); MEAN CORPUSCULAR VOLUME 94 fL (80-100); MONOCYTES # (AUTO) 0.8 K/uL (0.1-1.0); MONOCYTES % (AUTO) 11.5 % (2.0-9.0); NEUTROPHILS # (AUTO) 3.8 K/uL (1.8-7.7); NEUTROPHILS % (AUTO) 53.2 % (40.0-70.0); PLATELET COUNT (AUTO) 425 K/uL (150-450); RED BLOOD CELL COUNT(AUTO) 3.74 MIL/uL (4.00-5.20); RED CELL DISTRIBUTION WIDTH 14.4 % (11.5-14.5)
[2019-02-02 04:02] LABS: ANION GAP 9 mmol/L (8-16); CALCIUM, TOTAL 9.5 mg/dL (8.8-10.5); CARBON DIOXIDE 25 mmol/L (22-29); CHLORIDE 102 mmol/L (98-107); CREATININE 0.79 mg/dL (0.60-1.30); GLOMERULAR FILTR. RATE CALC > 60 mL/min (>60); GLUCOSE,RANDOM 116 mg/dL (70-110); POTASSIUM 3.7 mmol/L (3.5-5.1); SODIUM SERUM 136 mmol/L (136-145); UREA NITROGEN, BLOOD 17 mg/dL (7-18)
[2019-02-02 04:15] LABS: ALANINE AMINOTRANSFERASE 28 U/L (12-78); ALKALINE PHOSPHATASE 63 U/L (46-116); ASPARTATE AMINOTRANSFERASE 31 U/L (15-37); BILIRUBIN,TOTAL 0.9 mg/dL (0.1-1.0); HCG,QUANTITATIVE < 1 mIU/mL (0-6); TOTAL PROTEIN, SERUM 7.9 g/dL (6.4-8.2)
[2019-02-02 04:18] LABS: LITHIUM < 0.20 mmol/L (0.60-1.20)
[2019-02-02] MEDS ORDERED: DiphenhydrAMINE HCL 50 MG/ML VIAL IM ONE (04:30)
[2019-02-02] MEDS ORDERED: HALOPERIDOL LACTATE 5 MG/ML VIAL IM ONE (04:30)
[2019-02-02] MEDS ORDERED: LORazepam 2 MG/ML VIAL IM ONE (04:30)
[2019-02-02] MEDS ORDERED: SODIUM CHLORIDE 0.9% 1,000 ML IV ONE (07:30)
[2019-02-02 11:49] LABS: AMPHET/METH SCREEN,URINE POSITIVE (NEGATIVE); BARBITURATE SCREEN, URINE NEGATIVE (NEGATIVE); BENZODIAZEPINES SCREEN,URINE NEGATIVE (NEGATIVE); CANNABINOID SCREEN,URINE NEGATIVE (NEGATIVE); COCAINE SCREEN,URINE NEGATIVE (NEGATIVE); METHADONE SCREEN, URINE NEGATIVE (NEGATIVE); OPIATE SCREEN,URINE NEGATIVE (NEGATIVE)
[2019-02-02 12:01] LABS: PHENCYCLIDINE SCREEN,URINE NEGATIVE (NEGATIVE)
[2019-02-02 12:45] VITALS: BP 122/71
== END 2019-02-02 12:50 | disposition home or self-care (01) ==
LOC: EMS 01:57
DX: R45.1 Restlessness and agitation (principal); F15.10 Other stimulant abuse, uncomplicated; F14.90 Cocaine use, unspecified, uncomplicated; F31.9 Bipolar disorder, unspecified; F20.9 Schizophrenia, unspecified; F17.210 Nicotine dependence, cigarettes, uncomplicated; Z59.0 Homelessness; Z79.899 Other long term (current) drug therapy
CPT/HCPCS: 36415; 80053; 80178; 80307; 84702; 85025; 96372; 99284; G0480; J1200; J1630; J2060; J7030; 51701

== ENCOUNTER 2019-02-02 14:29 | Emergency (ER) | payer OTHER ==
[~2019-02-02] VITALS: Ht 165.1 cm; Wt 77.3 kg
[2019-02-02 14:50] LABS: APPEARANCE,URINE CLOUDY (CLEAR); BILIRUBIN,URINE NEGATIVE (NEGATIVE); GLUCOSE, URINE (UA) NEGATIVE (NEGATIVE); KETONES,URINE TRACE mg/dL (NEGATIVE); LEUKOCYTE ESTERASE ,URINE SMALL (NEGATIVE); NITRATE,URINE NEGATIVE (NEGATIVE); OCCULT BLOOD,URINE NEGATIVE (NEGATIVE); PROTEIN,URINE NEGATIVE (NEGATIVE); UROBILINOGEN,URINE 0.2 mg/dL (<=1.0)
[2019-02-02 14:54] LABS: BACTERIA,URINE Moderate /HPF (None Seen); RBC,URINE None Seen /HPF (0-2)
[2019-02-02 14:55] LABS: AMORPHOUS SEDIMENT,UR Moderate /LPF (None Seen); SQUAMOUS EPITHELIAL CELL,UR Few /LPF (None Seen)
[2019-02-02 14:59] LABS: GLUCOMETER DEV NAME(LOC) AHU.; GLUCOSE,POINT OF CARE 113 MG/DL (70-110)
[2019-02-02 15:52] LABS: BASOPHILS % (AUTO) 0.7 % (0.0-2.0); EOSINOPHILS % (AUTO) 4.3 % (1.0-6.0); HEMATOCRIT 32.9 % (36-46); HEMOGLOBIN 11.1 g/dL (12.0-16.0); LYMPHOCYTES # (AUTO) 1.4 K/uL (1.0-4.8); LYMPHOCYTES % (AUTO) 23.8 % (22.0-44.0); MEAN CORPUSCULAR HEMOGLOBIN 31.7 pg (26.0-34.0); MEAN CORPUSCULAR HGB CONC 33.6 G/dL (31.0-37.0); MEAN CORPUSCULAR VOLUME 94 fL (80-100); MONOCYTES # (AUTO) 0.7 K/uL (0.1-1.0); MONOCYTES % (AUTO) 11.4 % (2.0-9.0); NEUTROPHILS # (AUTO) 3.5 K/uL (1.8-7.7); NEUTROPHILS % (AUTO) 59.8 % (40.0-70.0); PLATELET COUNT (AUTO) 409 K/uL (150-450); RED CELL DISTRIBUTION WIDTH 14.7 % (11.5-14.5)
[2019-02-02] MEDS ORDERED: SODIUM CHLORIDE 0.9% 1,000 ML IV ONE (16:00)
[2019-02-02 16:14] LABS: LITHIUM < 0.20 mmol/L (0.60-1.20)
[2019-02-02 16:15] LABS: AMMONIA 23 umol/L (11-32)
[2019-02-02 16:33] LABS: ALANINE AMINOTRANSFERASE 24 U/L (12-78); ALBUMIN 3.2 g/dL (3.4-5.0); ALKALINE PHOSPHATASE 58 U/L (46-116); ANION GAP 10 mmol/L (8-16); ASPARTATE AMINOTRANSFERASE 27 U/L (15-37); BILIRUBIN,TOTAL 0.5 mg/dL (0.1-1.0); CALCIUM, TOTAL 8.9 mg/dL (8.8-10.5); CARBON DIOXIDE 24 mmol/L (22-29); CHLORIDE 105 mmol/L (98-107); CREATINE KINASE, TOTAL ONLY 916 U/L (26-192); CREATININE 0.76 mg/dL (0.60-1.30); GLOMERULAR FILTR. RATE CALC > 60 mL/min (>60); GLUCOSE,RANDOM 102 mg/dL (70-110); POTASSIUM 4.2 mmol/L (3.5-5.1); SODIUM SERUM 139 mmol/L (136-145); TOTAL PROTEIN, SERUM 6.6 g/dL (6.4-8.2)
[2019-02-02 16:58] LABS: TROPONIN I < 0.02 ng/mL (0.00-0.05)
[2019-02-02 17:03] LABS: UREA NITROGEN, BLOOD 21 mg/dL (7-18)
[2019-02-02 20:30] VITALS: BP 109/63
== END 2019-02-02 21:20 | disposition home or self-care (01) ==
LOC: EMS 14:30
DX: F31.9 Bipolar disorder, unspecified (principal); N39.0 Urinary tract infection, site not specified; F20.9 Schizophrenia, unspecified; F17.210 Nicotine dependence, cigarettes, uncomplicated; F19.90 Other psychoactive substance use, unspecified, uncomplicated; F11.90 Opioid use, unspecified, uncomplicated; Z76.5 Malingerer [conscious simulation]; Z59.0 Homelessness
CPT/HCPCS: 36415; 70450; 80053; 80178; 81001; 82140; 82550; 82962; 84484; 85025; 87086; 93005; 96360; 99285; G0480; J7030; 82948

== ENCOUNTER 2019-02-03 09:45 | Emergency (ER) | payer OTHER ==
[~2019-02-03] VITALS: Ht 167.6 cm; Wt 59.1 kg
[2019-02-03 12:49] VITALS: BP 108/51
== END 2019-02-03 13:11 | disposition home or self-care (01) ==
LOC: EMS 09:48
DX: Z13.89 Encounter for screening for other disorder (principal); F11.90 Opioid use, unspecified, uncomplicated; F15.90 Other stimulant use, unspecified, uncomplicated; F17.210 Nicotine dependence, cigarettes, uncomplicated; F31.9 Bipolar disorder, unspecified; F20.9 Schizophrenia, unspecified; Z59.0 Homelessness; Z79.899 Other long term (current) drug therapy

== ENCOUNTER 2019-02-03 15:10 | Inpatient (IN) | payer MEDICAID, OTHER ==
[~2019-02-03] VITALS: Ht 167.6 cm; Wt 61.2 kg
[2019-02-03 21:26] VITALS: BP 130/79
[2019-02-03] MEDS ORDERED: CloNIDine HCL 0.1 MG TABLET PO PRN (21:45)
[2019-02-03] MEDS ORDERED: NICOTINE 14 MG/24 HOUR PATCH TD PRN (21:45)
[2019-02-03] MEDS ORDERED: ACETAMINOPHEN 325 MG TABLET PO PRN (21:45)
[2019-02-03] MEDS ORDERED: ONDANSETRON HCL 4 MG TABLET PO PRN (21:45)
[2019-02-03] MEDS ORDERED: MAGNESIUM HYDROXIDE SUSPENSION 30 ML UDCUP PO PRN (21:45)
[2019-02-03] MEDS ORDERED: IBUPROFEN 400 MG TABLET PO PRN (21:45)
[2019-02-03] MEDS ORDERED: PETROLATUM,WHITE 28 GM JELLY TP PRN (21:45)
[2019-02-03] MEDS ORDERED: LOPERAMIDE HCL 2 MG CAPSULE PO PRN (21:45)
[2019-02-03] MEDS ORDERED: ALBUTEROL SULFATE HFA 90 MCG/PUFF 8 GM INHALER IH PRN (21:45)
[2019-02-03] MEDS ORDERED: MAG HYDROX/AL HYDROX/SIMETH ES 30 ML SUSPENSION UDCUP PO PRN (21:45)
[2019-02-03] MEDS ORDERED: DOCUSATE SODIUM 100 MG CAPSULE PO PRN (21:45)
[2019-02-03] MEDS ORDERED: GuaiFENesin/D-METHORPHAN [SUGAR-FREE] 200-20MG/10 ML SYRUP UDCUP PO PRN (21:45)
[2019-02-04] MEDS: BACITRACIN 28.4 GM OINTMENT TP SCH ×2 (09:19→17:17)
[2019-02-04] MEDS: LITHIUM CARBONATE 300 MG TABLET PO SCH ×2 (11:52→17:17)
[2019-02-04 17:05] VITALS: BP 128/86
[2019-02-04] MEDS: LORazepam 2 MG TABLET PO PRN (18:00)
[2019-02-04] MEDS: HALOPERIDOL 10 MG TABLET PO SCH (20:42)
[2019-02-04] MEDS: ZOLPIDEM TARTRATE 10 MG TABLET PO PRN (21:02)
[2019-02-05 08:24] LABS: HEMOGLOBIN A1C 5.3 % (4.5-6.2)
[2019-02-05] MEDS: LITHIUM CARBONATE 300 MG TABLET PO SCH ×2 (08:27→17:32)
[2019-02-05] MEDS: BACITRACIN 28.4 GM OINTMENT TP SCH ×2 (08:27→17:32)
[2019-02-05 08:30] VITALS: BP 110/71
[2019-02-05] MEDS: LORazepam 2 MG TABLET PO PRN ×2 (08:30→16:39)
[2019-02-05 08:53] LABS: FREE T4 (FREE THYROXINE) 0.96 ng/dL (0.76-1.46); HCG,QUANTITATIVE < 1 mIU/mL (0-6); THYROID STIMULATING HORMONE 2.26 uIU/mL (0.36-3.74)
[2019-02-05 16:48] VITALS: BP 113/75
[2019-02-05] MEDS: HALOPERIDOL 10 MG TABLET PO SCH (20:22)
[2019-02-06 02:03] VITALS: BP 121/81
[2019-02-06] MEDS: BACITRACIN 28.4 GM OINTMENT TP SCH ×2 (08:40→16:14)
[2019-02-06] MEDS: LITHIUM CARBONATE 300 MG TABLET PO SCH ×2 (08:41→16:13)
[2019-02-06 16:11] VITALS: BP 107/61
[2019-02-06] MEDS: LORazepam 2 MG TABLET PO PRN (16:13)
[2019-02-06] MEDS: HALOPERIDOL 10 MG TABLET PO SCH (20:47)
[2019-02-07 01:47] VITALS: BP 105/65
[2019-02-07 08:33] VITALS: BP 113/61
[2019-02-07] MEDS: BACITRACIN 28.4 GM OINTMENT TP SCH ×2 (08:42→17:25)
[2019-02-07] MEDS: LITHIUM CARBONATE 300 MG TABLET PO SCH ×2 (08:42→17:25)
[2019-02-07 17:11] VITALS: BP 123/69
[2019-02-07] MEDS: LORazepam 2 MG TABLET PO PRN (17:25)
[2019-02-07] MEDS: HALOPERIDOL 10 MG TABLET PO SCH (21:40)
[2019-02-08 06:38] VITALS: BP 118/65
[2019-02-08 08:42] VITALS: BP 121/84
[2019-02-08] MEDS: BACITRACIN 28.4 GM OINTMENT TP SCH ×2 (09:41→16:34)
[2019-02-08] MEDS: LITHIUM CARBONATE 300 MG TABLET PO SCH ×2 (09:42→16:34)
[2019-02-08] MEDS: HALOPERIDOL 5 MG TABLET PO PRN (16:34)
[2019-02-08] MEDS: LORazepam 2 MG TABLET PO PRN (16:34)
[2019-02-08 16:40] VITALS: BP 122/70
[2019-02-08] MEDS: ZOLPIDEM TARTRATE 10 MG TABLET PO PRN (20:55)
[2019-02-08] MEDS: HALOPERIDOL 10 MG TABLET PO SCH (20:55)
[2019-02-09 07:03] VITALS: BP 125/76
[2019-02-09] MEDS: LITHIUM CARBONATE 300 MG TABLET PO SCH ×2 (08:07→18:20)
[2019-02-09] MEDS: BACITRACIN 28.4 GM OINTMENT TP SCH ×2 (08:07→18:20)
[2019-02-09 08:17] VITALS: BP 104/59
[2019-02-09 17:37] VITALS: BP 110/71
[2019-02-09] MEDS: LORazepam 2 MG TABLET PO PRN (18:20)
[2019-02-09] MEDS: HALOPERIDOL 5 MG TABLET PO PRN (18:20)
[2019-02-09] MEDS: HALOPERIDOL 10 MG TABLET PO SCH (20:50)
[2019-02-10] MEDS: LORazepam 2 MG TABLET PO PRN (08:18)
[2019-02-10] MEDS: LITHIUM CARBONATE 300 MG TABLET PO SCH ×2 (08:19→16:04)
[2019-02-10 08:27] VITALS: BP 116/72
[2019-02-10] MEDS: BACITRACIN 28.4 GM OINTMENT TP SCH ×2 (09:00→16:04)
[2019-02-10 16:17] VITALS: BP 119/74
[2019-02-10] MEDS: HALOPERIDOL 10 MG TABLET PO SCH (20:13)
[2019-02-11 02:50] VITALS: BP 107/60
[2019-02-11 08:18] VITALS: BP 116/72
[2019-02-11] MEDS: LITHIUM CARBONATE 300 MG TABLET PO SCH ×2 (09:14→17:40)
[2019-02-11] MEDS: BACITRACIN 28.4 GM OINTMENT TP SCH ×2 (09:15→17:00)
[2019-02-11 16:12] VITALS: BP 112/76
[2019-02-11] MEDS: HALOPERIDOL 10 MG TABLET PO SCH (21:28)
[2019-02-12 06:41] VITALS: BP 111/74
[2019-02-12 08:17] VITALS: BP 100/50
[2019-02-12] MEDS: LITHIUM CARBONATE 300 MG TABLET PO SCH ×2 (10:24→17:11)
[2019-02-12] MEDS: BACITRACIN 28.4 GM OINTMENT TP SCH ×2 (10:26→17:00)
[2019-02-12 16:10] VITALS: BP 107/67
[2019-02-12] MEDS: HALOPERIDOL 10 MG TABLET PO SCH (21:37)
[2019-02-13 00:50] VITALS: BP 110/72
[2019-02-13] MEDS: LITHIUM CARBONATE 300 MG TABLET PO SCH ×2 (08:16→16:14)
[2019-02-13] MEDS: BACITRACIN 28.4 GM OINTMENT TP SCH ×2 (08:16→17:31)
[2019-02-13] MEDS: LORazepam 2 MG TABLET PO PRN ×2 (08:59→16:14)
[2019-02-13 16:00] VITALS: BP 110/71
[2019-02-13] MEDS: HALOPERIDOL 10 MG TABLET PO SCH (20:20)
[2019-02-14] MEDS: LITHIUM CARBONATE 450 MG ER TABLET PO SCH ×2 (08:17→16:24)
[2019-02-14 08:19] VITALS: BP 111/69
[2019-02-14] MEDS: LORazepam 2 MG TABLET PO PRN ×2 (08:52→16:24)
[2019-02-14 16:27] VITALS: BP 112/74
[2019-02-14] MEDS: HALOPERIDOL 10 MG TABLET PO SCH (20:27)
[2019-02-15] MEDS: LITHIUM CARBONATE 450 MG ER TABLET PO SCH ×2 (08:13→16:08)
[2019-02-15] MEDS: LORazepam 2 MG TABLET PO PRN ×2 (08:30→16:11)
[2019-02-15 08:34] VITALS: BP 113/69
[2019-02-15 17:28] VITALS: BP 115/74
[2019-02-15] MEDS: HALOPERIDOL 10 MG TABLET PO SCH (20:15)
[2019-02-16 00:24] VITALS: BP 101/70
[2019-02-16] MEDS: LITHIUM CARBONATE 450 MG ER TABLET PO SCH ×2 (09:17→17:12)
[2019-02-16 16:53] VITALS: BP 101/60
[2019-02-16] MEDS: LORazepam 2 MG TABLET PO PRN (17:12)
[2019-02-16] MEDS: HALOPERIDOL 10 MG TABLET PO SCH (21:14)
[2019-02-17 08:21] VITALS: BP 100/59
[2019-02-17] MEDS: LITHIUM CARBONATE 450 MG ER TABLET PO SCH ×2 (08:21→17:16)
[2019-02-17 17:29] VITALS: BP 124/79
[2019-02-17] MEDS: HALOPERIDOL 10 MG TABLET PO SCH (20:12)
[2019-02-18 05:27] VITALS: BP 114/65
[2019-02-18 07:45] VITALS: BP 112/69
[2019-02-18 08:20] VITALS: BP 112/69
== END 2019-02-18 08:00 | disposition home or self-care (01) | DRG 750 ==
LOC: EMS 15:13 → B3A 19:00
PROVIDERS: ADMIT Psychiatry & Neurology Psychiatry; ATTEND Psychiatry & Neurology Psychiatry
DX: F25.0 Schizoaffective disorder, bipolar type (principal); Z59.0 Homelessness; D64.9 Anemia, unspecified; E78.5 Hyperlipidemia, unspecified; F15.90 Other stimulant use, unspecified, uncomplicated; F17.200 Nicotine dependence, unspecified, uncomplicated; N39.0 Urinary tract infection, site not specified; F41.9 Anxiety disorder, unspecified; F14.90 Cocaine use, unspecified, uncomplicated; F99 Mental disorder, not otherwise specified; Z87.59 Personal history of other complications of pregnancy, childbirth and the puerperium
CPT/HCPCS: 83036; 84439; 84443

== ENCOUNTER 2019-04-19 08:22 | Inpatient (IN) | payer MEDICAID, OTHER ==
[~2019-04-19] VITALS: Ht 165.1 cm; Wt 63.5 kg
[2019-04-19] MEDS ORDERED: LORazepam 2 MG/ML VIAL IVP ONE (08:30)
[2019-04-19] MEDS ORDERED: OLAN5TAB2 PO (08:32)
[2019-04-19] MEDS ORDERED: BENZ1TAB10 PO (08:32)
[2019-04-19 08:49] LABS: BASOPHILS % (AUTO) 0.8 % (0.0-2.0); EOSINOPHILS % (AUTO) 3.1 % (1.0-6.0); HEMATOCRIT 36.5 % (36-46); HEMOGLOBIN 12.2 g/dL (12.0-16.0); LYMPHOCYTES # (AUTO) 1.2 K/uL (1.0-4.8); LYMPHOCYTES % (AUTO) 23.7 % (22.0-44.0); MEAN CORPUSCULAR HEMOGLOBIN 31.3 pg (26.0-34.0); MEAN CORPUSCULAR HGB CONC 33.4 G/dL (31.0-37.0); MEAN CORPUSCULAR VOLUME 94 fL (80-100); MONOCYTES # (AUTO) 0.5 K/uL (0.1-1.0); MONOCYTES % (AUTO) 10.7 % (2.0-9.0); NEUTROPHILS % (AUTO) 61.7 % (40.0-70.0); PLATELET COUNT (AUTO) 365 K/uL (150-450); RED BLOOD CELL COUNT(AUTO) 3.89 MIL/uL (4.00-5.20)
[2019-04-19 08:57] LABS: ANION GAP 9 mmol/L (8-16); CALCIUM, TOTAL 9.6 mg/dL (8.8-10.5); CARBON DIOXIDE 28 mmol/L (22-29); CHLORIDE 106 mmol/L (98-107); GLOMERULAR FILTR. RATE CALC > 60 mL/min (>60); GLUCOSE,RANDOM 128 mg/dL (70-110); POTASSIUM 4.4 mmol/L (3.5-5.1); SODIUM SERUM 143 mmol/L (136-145); UREA NITROGEN, BLOOD 21 mg/dL (7-18)
[2019-04-19 09:03] LABS: ALANINE AMINOTRANSFERASE 16 U/L (12-78); ALBUMIN 3.6 g/dL (3.4-5.0); ALKALINE PHOSPHATASE 61 U/L (46-116); ASPARTATE AMINOTRANSFERASE 16 U/L (15-37); BILIRUBIN,TOTAL 0.4 mg/dL (0.1-1.0); TOTAL PROTEIN, SERUM 7.8 g/dL (6.4-8.2)
[2019-04-19 09:45] LABS: AMPHET/METH SCREEN,URINE NEGATIVE (NEGATIVE); APPEARANCE,URINE CLOUDY (CLEAR); BARBITURATE SCREEN, URINE NEGATIVE (NEGATIVE); BENZODIAZEPINES SCREEN,URINE NEGATIVE (NEGATIVE); BILIRUBIN,URINE NEGATIVE (NEGATIVE); CANNABINOID SCREEN,URINE NEGATIVE (NEGATIVE); COCAINE SCREEN,URINE NEGATIVE (NEGATIVE); GLUCOSE, URINE (UA) NEGATIVE (NEGATIVE); KETONES,URINE TRACE mg/dL (NEGATIVE); LEUKOCYTE ESTERASE ,URINE SMALL (NEGATIVE); METHADONE SCREEN, URINE NEGATIVE (NEGATIVE); NITRATE,URINE NEGATIVE (NEGATIVE); OCCULT BLOOD,URINE LARGE (NEGATIVE); OPIATE SCREEN,URINE NEGATIVE (NEGATIVE); PH,URINE 5.5 (5.0-8.0); PROTEIN,URINE POS 1+ (NEGATIVE)
[2019-04-19 09:46] LABS: PHENCYCLIDINE SCREEN,URINE NEGATIVE (NEGATIVE)
[2019-04-19] MEDS ORDERED: SODIUM CHLORIDE 0.9% 1,000 ML IV ONE ×2 (10:00→11:00)
[2019-04-19 10:05] LABS: BACTERIA,URINE Few /HPF (None Seen); RBC,URINE 51-100 /HPF (0-2); SQUAMOUS EPITHELIAL CELL,UR Moderate /LPF (None Seen)
[2019-04-19] MEDS ORDERED: ZOLPIDEM TARTRATE 10 MG TABLET PO PRN (16:00)
[2019-04-19] MEDS ORDERED: HALOPERIDOL LACTATE 5 MG/ML VIAL ONE (17:27)
[2019-04-19] MEDS ORDERED: DiphenhydrAMINE HCL 50 MG/ML VIAL ONE (17:27)
[2019-04-19] MEDS ORDERED: HALOPERIDOL LACTATE 5 MG/ML VIAL IM ONE (17:30)
[2019-04-19] MEDS ORDERED: DiphenhydrAMINE HCL 50 MG/ML VIAL IM ONE (17:30)
[2019-04-19] MEDS ORDERED: LORazepam 2 MG/ML VIAL IM ONE (17:30)
[2019-04-19 18:00] VITALS: BP 130/75
[2019-04-19] MEDS: LITHIUM CARBONATE 300 MG TABLET PO SCH (18:22)
[2019-04-19] MEDS ORDERED: LOPERAMIDE HCL 2 MG CAPSULE PO PRN (19:45)
[2019-04-19] MEDS ORDERED: ALBUTEROL SULFATE HFA 90 MCG/PUFF 8 GM INHALER IH PRN (19:45)
[2019-04-19] MEDS ORDERED: BENZOCAINE/MENTHOL LOZENGE MM PRN (19:45)
[2019-04-19] MEDS ORDERED: MAGNESIUM HYDROXIDE SUSPENSION 30 ML UDCUP PO PRN (19:45)
[2019-04-19] MEDS ORDERED: MAG HYDROX/AL HYDROX/SIMETH ES 30 ML SUSPENSION UDCUP PO PRN (19:45)
[2019-04-19] MEDS ORDERED: IBUPROFEN 600 MG TABLET PO PRN (19:45)
[2019-04-19] MEDS ORDERED: ONDANSETRON HCL 4 MG TABLET PO PRN (19:45)
[2019-04-19] MEDS ORDERED: BACITRACIN 28.4 GM OINTMENT TP PRN (19:45)
[2019-04-19] MEDS ORDERED: PETROLATUM,WHITE 28 GM JELLY TP PRN (19:45)
[2019-04-19] MEDS ORDERED: ACETAMINOPHEN 325 MG TABLET PO PRN (19:45)
[2019-04-19] MEDS ORDERED: CloNIDine HCL 0.1 MG TABLET PO PRN (19:45)
[2019-04-19] MEDS: HALOPERIDOL 10 MG TABLET PO SCH (21:00)
[2019-04-20 08:06] VITALS: BP 134/79
[2019-04-20] MEDS: LORazepam 2 MG TABLET PO PRN (08:19)
[2019-04-20] MEDS: HALOPERIDOL 5 MG TABLET PO PRN (08:19)
[2019-04-20] MEDS: LITHIUM CARBONATE 300 MG TABLET PO SCH ×2 (08:19→17:00)
[2019-04-20] MEDS ORDERED: OMEPRAZOLE 20 MG CAPSULE PO SCH (09:00)
[2019-04-20] MEDS ORDERED: DOCUSATE SODIUM 100 MG CAPSULE PO SCH (09:00)
[2019-04-20 16:41] VITALS: BP 115/72
[2019-04-20] MEDS: CEPHALEXIN MONOHYDRATE 500 MG CAPSULE PO SCH (17:00)
[2019-04-20] MEDS: HALOPERIDOL 10 MG TABLET PO SCH (20:28)
[2019-04-21] MEDS: LITHIUM CARBONATE 300 MG TABLET PO SCH ×2 (12:30→17:04)
[2019-04-21] MEDS: CEPHALEXIN MONOHYDRATE 500 MG CAPSULE PO SCH ×2 (12:31→17:03)
[2019-04-21] MEDS: HALOPERIDOL 5 MG TABLET PO PRN (12:31)
[2019-04-21] MEDS: LORazepam 2 MG TABLET PO PRN (12:32)
[2019-04-21 16:20] VITALS: BP 90/68
[2019-04-21] MEDS: HALOPERIDOL 10 MG TABLET PO SCH (20:06)
[2019-04-22] MEDS: LITHIUM CARBONATE 300 MG TABLET PO SCH ×2 (09:00→17:00)
[2019-04-22 12:25] VITALS: BP 125/68
[2019-04-22 16:53] VITALS: BP 115/72
[2019-04-22] MEDS: LORazepam 2 MG TABLET PO PRN (17:00)
[2019-04-22] MEDS: HALOPERIDOL 10 MG TABLET PO SCH (21:35)
[2019-04-23 08:00] VITALS: BP 118/54
[2019-04-23] MEDS: LITHIUM CARBONATE 300 MG TABLET PO SCH ×2 (08:16→16:17)
[2019-04-23 16:30] VITALS: BP 122/64
[2019-04-23] MEDS: HALOPERIDOL 10 MG TABLET PO SCH (20:15)
[2019-04-24] MEDS: LITHIUM CARBONATE 300 MG TABLET PO SCH (08:43)
== END 2019-04-24 12:20 | disposition home or self-care (01) | DRG 750 ==
LOC: EMS 08:24 → 3EI 17:09
PROVIDERS: ADMIT Psychiatry & Neurology Psychiatry; ATTEND Psychiatry & Neurology Psychiatry
DX: F20.0 Paranoid schizophrenia (principal); R56.9 Unspecified convulsions; E55.9 Vitamin D deficiency, unspecified; E78.5 Hyperlipidemia, unspecified; F12.90 Cannabis use, unspecified, uncomplicated; F15.10 Other stimulant abuse, uncomplicated; F17.200 Nicotine dependence, unspecified, uncomplicated; G47.00 Insomnia, unspecified; N39.0 Urinary tract infection, site not specified; Z87.59 Personal history of other complications of pregnancy, childbirth and the puerperium; Z98.891 History of uterine scar from previous surgery
CPT/HCPCS: 70450; 87086; G0480; J1200; J1630; J2060

== ENCOUNTER 2019-05-23 02:55 | Inpatient (IN) | payer MEDICAID ==
[2019-05-23 03:30] VITALS: BP 129/89
[2019-05-23] MEDS ORDERED: DiphenhydrAMINE HCL 50 MG/ML VIAL IM ONE ×2 (03:30→15:30)
[2019-05-23] MEDS ORDERED: LORazepam 2 MG/ML VIAL IM ONE ×2 (03:30→15:30)
[2019-05-23] MEDS ORDERED: HALOPERIDOL LACTATE 5 MG/ML VIAL IM ONE ×2 (03:30→15:30)
[2019-05-23] MEDS ORDERED: DiphenhydrAMINE HCL 50 MG/ML VIAL ONE (03:32)
[2019-05-23] MEDS ORDERED: LORazepam 2 MG/ML VIAL ONE (03:32)
[2019-05-23] MEDS ORDERED: HALOPERIDOL LACTATE 5 MG/ML VIAL ONE (03:33)
[2019-05-23 04:30] VITALS: BP 118/70
[2019-05-23] MEDS ORDERED: PNEUMOCOCCAL VACCINE POLYVALENT 0.5 ML VIAL [PPSV23] IM ONE (05:00)
[2019-05-23 08:03] VITALS: BP 137/72
[2019-05-23] MEDS: LORazepam 2 MG TABLET PO PRN (14:41)
[2019-05-23] MEDS ORDERED: LITHIUM CARBONATE 300 MG TABLET PO SCH (17:00)
[2019-05-23] MEDS: HALOPERIDOL 10 MG TABLET PO SCH (21:00)
[2019-05-24] MEDS: LITHIUM CARBONATE 450 MG ER TABLET PO SCH ×2 (08:08→16:20)
[2019-05-24] MEDS: LORazepam 2 MG TABLET PO PRN ×3 (08:08→18:51)
[2019-05-24] MEDS: HALOPERIDOL 5 MG TABLET PO PRN ×2 (08:08→14:42)
[2019-05-24 08:35] VITALS: BP 112/67
[2019-05-24 09:30] LABS: APPEARANCE,URINE CLEAR (CLEAR); BILIRUBIN,URINE NEGATIVE (NEGATIVE); GLUCOSE, URINE (UA) NEGATIVE (NEGATIVE); KETONES,URINE NEGATIVE (NEGATIVE); LEUKOCYTE ESTERASE ,URINE NEGATIVE (NEGATIVE); NITRATE,URINE NEGATIVE (NEGATIVE); OCCULT BLOOD,URINE NEGATIVE (NEGATIVE); PH,URINE 6.5 (5.0-8.0); PROTEIN,URINE NEGATIVE (NEGATIVE); UROBILINOGEN,URINE 0.2 mg/dL (<=1.0)
[2019-05-24] MEDS: HALOPERIDOL 10 MG TABLET PO SCH (20:12)
[2019-05-25 03:15] VITALS: BP 125/85
[2019-05-25 08:14] VITALS: BP 121/68
[2019-05-25] MEDS: LORazepam 2 MG TABLET PO PRN ×2 (08:42→12:52)
[2019-05-25] MEDS: HALOPERIDOL 5 MG TABLET PO PRN ×2 (08:42→12:52)
[2019-05-25] MEDS: LITHIUM CARBONATE 450 MG ER TABLET PO SCH ×2 (08:42→16:03)
[2019-05-25 16:01] VITALS: BP 116/74
[2019-05-25] MEDS: HALOPERIDOL 10 MG TABLET PO SCH (21:00)
[2019-05-26 02:33] VITALS: BP 132/72
[2019-05-26] MEDS: LORazepam 2 MG TABLET PO PRN ×4 (03:26→19:25)
[2019-05-26] MEDS: HALOPERIDOL 5 MG TABLET PO PRN ×3 (03:26→14:31)
[2019-05-26 06:53] LABS: BASOPHILS % (AUTO) 0.7 % (0.0-2.0); EOSINOPHILS % (AUTO) 3.1 % (1.0-6.0); HEMATOCRIT 39.8 % (36-46); HEMOGLOBIN 12.9 g/dL (12.0-16.0); LYMPHOCYTES # (AUTO) 1.9 K/uL (1.0-4.8); MEAN CORPUSCULAR HGB CONC 32.5 G/dL (31.0-37.0); MEAN CORPUSCULAR VOLUME 96 fL (80-100); MONOCYTES # (AUTO) 0.4 K/uL (0.1-1.0); MONOCYTES % (AUTO) 7.6 % (2.0-9.0); NEUTROPHILS # (AUTO) 3.2 K/uL (1.8-7.7); NEUTROPHILS % (AUTO) 55.6 % (40.0-70.0); PLATELET COUNT (AUTO) 452 K/uL (150-450); RED BLOOD CELL COUNT(AUTO) 4.17 MIL/uL (4.00-5.20); RED CELL DISTRIBUTION WIDTH 14.7 % (11.5-14.5)
[2019-05-26 07:28] LABS: LITHIUM 0.44 mmol/L (0.60-1.20)
[2019-05-26 07:46] LABS: ALANINE AMINOTRANSFERASE 19 U/L (12-78); ALBUMIN 3.4 g/dL (3.4-5.0); ALKALINE PHOSPHATASE 65 U/L (46-116); ANION GAP 10 mmol/L (8-16); ASPARTATE AMINOTRANSFERASE 17 U/L (15-37); BILIRUBIN,TOTAL 0.2 mg/dL (0.1-1.0); CALCIUM, TOTAL 10.2 mg/dL (8.8-10.5); CARBON DIOXIDE 23 mmol/L (22-29); CHLORIDE 102 mmol/L (98-107); CHOL/HDL RATIO 5.1 (3.9-5.7); CHOLESTEROL 268 mg/dL (131-200); CREATININE 0.71 mg/dL (0.60-1.30); GLOMERULAR FILTR. RATE CALC > 60 mL/min (>60); GLUCOSE,RANDOM 87 mg/dL (70-110); HCG,QUANTITATIVE < 1 mIU/mL (0-6); HDL CHOLESTEROL 53 mg/dL (40-60); LDL CHOL (CALC.) 184 mg/dL (0-130); POTASSIUM 4.6 mmol/L (3.5-5.1); SODIUM SERUM 135 mmol/L (136-145); THYROID STIMULATING HORMONE 1.66 uIU/mL (0.36-3.74); TOTAL PROTEIN, SERUM 7.5 g/dL (6.4-8.2); TRIGLYCERIDES 157 mg/dL (15-150); UREA NITROGEN, BLOOD 16 mg/dL (7-18)
[2019-05-26] MEDS: LITHIUM CARBONATE 450 MG ER TABLET PO SCH ×2 (08:31→16:37)
[2019-05-26 16:06] VITALS: BP 118/60
[2019-05-26] MEDS: HALOPERIDOL 10 MG TABLET PO SCH (20:37)
[2019-05-26] MEDS: ZOLPIDEM TARTRATE 10 MG TABLET PO PRN (20:37)
[2019-05-27 00:22] VITALS: BP 134/62
[2019-05-27] MEDS: LORazepam 2 MG TABLET PO PRN ×2 (04:13→16:38)
[2019-05-27] MEDS: HALOPERIDOL 5 MG TABLET PO PRN ×2 (04:13→16:38)
[2019-05-27 08:26] VITALS: BP 122/80
[2019-05-27] MEDS: LITHIUM CARBONATE 450 MG ER TABLET PO SCH ×2 (08:36→16:38)
[2019-05-27 16:16] VITALS: BP 118/65
[2019-05-27] MEDS: ZOLPIDEM TARTRATE 10 MG TABLET PO PRN (20:45)
[2019-05-27] MEDS: HALOPERIDOL 10 MG TABLET PO SCH (20:45)
[2019-05-28 00:30] VITALS: BP 114/68
[2019-05-28] MEDS: HALOPERIDOL 5 MG TABLET PO PRN ×3 (03:49→16:55)
[2019-05-28] MEDS: LORazepam 2 MG TABLET PO PRN ×3 (03:49→16:55)
[2019-05-28] MEDS: LITHIUM CARBONATE 450 MG ER TABLET PO SCH ×2 (08:28→16:19)
[2019-05-28 09:30] VITALS: BP 112/70
[2019-05-28 16:03] VITALS: BP 123/73
[2019-05-28] MEDS: HALOPERIDOL 10 MG TABLET PO SCH (20:05)
[2019-05-29 01:29] VITALS: BP 112/78
[2019-05-29 08:18] VITALS: BP 136/82
[2019-05-29] MEDS: LITHIUM CARBONATE 450 MG ER TABLET PO SCH (08:30)
[2019-05-29] MEDS: HALOPERIDOL 5 MG TABLET PO PRN (08:55)
[2019-05-29] MEDS: LORazepam 2 MG TABLET PO PRN (08:55)
== END 2019-05-29 14:15 | disposition home or self-care (01) | DRG 750 ==
LOC: B2S 03:13 → B2X 16:25 → B3A 05-24 17:36
PROVIDERS: ADMIT Psychiatry & Neurology Psychiatry; ATTEND Psychiatry & Neurology Psychiatry
DX: F20.0 Paranoid schizophrenia (principal); Z59.0 Homelessness; D64.9 Anemia, unspecified; E78.5 Hyperlipidemia, unspecified; F12.90 Cannabis use, unspecified, uncomplicated; F15.90 Other stimulant use, unspecified, uncomplicated; Z87.440 Personal history of urinary (tract) infections; Z28.21 Immunization not carried out because of patient refusal; Z79.899 Other long term (current) drug therapy
CPT/HCPCS: 83036; 84439; 84443; 87081; J1200; J1630; J2060

== ENCOUNTER 2019-06-08 21:47 | Emergency (ER) | payer MEDICAID, OTHER ==
[~2019-06-08] VITALS: Ht 160 cm; Wt 59.1 kg
[2019-06-08 23:30] VITALS: BP 129/93
== END 2019-06-08 23:30 | disposition home or self-care (01) ==
LOC: EMS 21:48
DX: G25.9 Extrapyramidal and movement disorder, unspecified (principal); M54.2 Cervicalgia; R10.9 Unspecified abdominal pain; F31.9 Bipolar disorder, unspecified; F20.9 Schizophrenia, unspecified; F17.210 Nicotine dependence, cigarettes, uncomplicated; F15.90 Other stimulant use, unspecified, uncomplicated; Z59.0 Homelessness; Z79.899 Other long term (current) drug therapy

== ENCOUNTER 2019-06-09 06:33 | Emergency (ER) | payer OTHER | END 2019-06-09 06:39 | disposition left against medical advice (07) | LOC: EMS 06:35 | DX: R11.10 Vomiting, unspecified (principal); Z53.21 Procedure and treatment not carried out due to patient leaving prior to being seen by health care provider ==

== ENCOUNTER 2019-06-10 16:43 | Inpatient (IN) | payer MEDICAID, OTHER ==
[~2019-06-10] VITALS: Ht 165.1 cm; Wt 64.4 kg
[~2019-06-10 16:43] MED LIST changes: -HALO10 PO
[2019-06-10] MEDS ORDERED: LORazepam 2 MG TABLET PO ONE (17:30)
[2019-06-10] MEDS ORDERED: BENZTROPINE MESYLATE 1 MG/ML 2 ML VIAL IM ONE (17:45)
[2019-06-10 18:05] LABS: BASOPHILS % (AUTO) 0.6 % (0.0-2.0); EOSINOPHILS % (AUTO) 2.6 % (1.0-6.0); HEMATOCRIT 37.3 % (36-46); HEMOGLOBIN 12.1 g/dL (12.0-16.0); LYMPHOCYTES # (AUTO) 2.1 K/uL (1.0-4.8); MEAN CORPUSCULAR HGB CONC 32.5 G/dL (31.0-37.0); MEAN CORPUSCULAR VOLUME 96 fL (80-100); MONOCYTES # (AUTO) 0.6 K/uL (0.1-1.0); MONOCYTES % (AUTO) 7.2 % (2.0-9.0); NEUTROPHILS # (AUTO) 4.9 K/uL (1.8-7.7); NEUTROPHILS % (AUTO) 62.6 % (40.0-70.0); PLATELET COUNT (AUTO) 436 K/uL (150-450); RED BLOOD CELL COUNT(AUTO) 3.91 MIL/uL (4.00-5.20); RED CELL DISTRIBUTION WIDTH 14.9 % (11.5-14.5)
[2019-06-10 18:09] LABS: AMPHET/METH SCREEN,URINE NEGATIVE (NEGATIVE); BARBITURATE SCREEN, URINE NEGATIVE (NEGATIVE); BENZODIAZEPINES SCREEN,URINE NEGATIVE (NEGATIVE); CANNABINOID SCREEN,URINE NEGATIVE (NEGATIVE); COCAINE SCREEN,URINE NEGATIVE (NEGATIVE); METHADONE SCREEN, URINE NEGATIVE (NEGATIVE); OPIATE SCREEN,URINE NEGATIVE (NEGATIVE); PHENCYCLIDINE SCREEN,URINE NEGATIVE (NEGATIVE)
[2019-06-10 18:23] LABS: LITHIUM 0.75 mmol/L (0.60-1.20)
[2019-06-10 18:35] LABS: ALANINE AMINOTRANSFERASE 20 U/L (12-78); ALBUMIN 3.7 g/dL (3.4-5.0); ALKALINE PHOSPHATASE 68 U/L (46-116); ANION GAP 8 mmol/L (8-16); ASPARTATE AMINOTRANSFERASE 31 U/L (15-37); BILIRUBIN,TOTAL 0.3 mg/dL (0.1-1.0); CALCIUM, TOTAL 9.7 mg/dL (8.8-10.5); CARBON DIOXIDE 25 mmol/L (22-29); CHLORIDE 102 mmol/L (98-107); CREATININE 0.76 mg/dL (0.60-1.30); GLOMERULAR FILTR. RATE CALC > 60 mL/min (>60); GLUCOSE,RANDOM 100 mg/dL (70-110); POTASSIUM 3.8 mmol/L (3.5-5.1); SODIUM SERUM 135 mmol/L (136-145); TOTAL PROTEIN, SERUM 7.9 g/dL (6.4-8.2); UREA NITROGEN, BLOOD 13 mg/dL (7-18)
[2019-06-10 21:53] VITALS: BP 124/75
[2019-06-10] MEDS: HALOPERIDOL 10 MG TABLET PO SCH (22:28)
[2019-06-11 03:32] VITALS: BP 109/72
[2019-06-11 08:28] VITALS: BP 118/69
[2019-06-11] MEDS: HALOPERIDOL 5 MG TABLET PO PRN (08:37)
[2019-06-11] MEDS: LORazepam 2 MG TABLET PO PRN ×2 (08:38→16:21)
[2019-06-11] MEDS: LITHIUM CARBONATE 450 MG ER TABLET PO SCH ×2 (08:38→16:22)
[2019-06-11] MEDS: ROSUVASTATIN CALCIUM 10 MG TABLET PO SCH (20:27)
[2019-06-11] MEDS: HALOPERIDOL 10 MG TABLET PO SCH (20:27)
[2019-06-12 00:57] VITALS: BP 116/70
[2019-06-12] MEDS: LITHIUM CARBONATE 450 MG ER TABLET PO SCH ×2 (08:22→16:31)
[2019-06-12] MEDS: LORazepam 2 MG TABLET PO PRN ×2 (08:28→16:31)
[2019-06-12] MEDS: HALOPERIDOL 5 MG TABLET PO PRN ×2 (08:28→16:31)
[2019-06-12 08:35] VITALS: BP 118/69
[2019-06-12 16:28] VITALS: BP 106/61
[2019-06-12] MEDS: HALOPERIDOL 10 MG TABLET PO SCH (20:42)
[2019-06-12] MEDS: ZOLPIDEM TARTRATE 10 MG TABLET PO PRN (20:42)
[2019-06-12] MEDS: ROSUVASTATIN CALCIUM 10 MG TABLET PO SCH (20:42)
[2019-06-13 04:32] VITALS: BP 110/63
[2019-06-13] MEDS: LITHIUM CARBONATE 450 MG ER TABLET PO SCH ×2 (08:12→15:57)
[2019-06-13 08:40] LABS: CHOL/HDL RATIO 4.5 (3.9-5.7); CHOLESTEROL 215 mg/dL (131-200); FREE T4 (FREE THYROXINE) 0.78 ng/dL (0.76-1.46); HCG,QUANTITATIVE < 1 mIU/mL (0-6); HDL CHOLESTEROL 48 mg/dL (40-60); LDL CHOL (CALC.) 156 mg/dL (0-130); THYROID STIMULATING HORMONE 2.33 uIU/mL (0.36-3.74); TRIGLYCERIDES 54 mg/dL (15-150)
[2019-06-13] MEDS: HALOPERIDOL 5 MG TABLET PO PRN (08:48)
[2019-06-13] MEDS: LORazepam 2 MG TABLET PO PRN (08:48)
[2019-06-13 17:00] VITALS: BP 107/68
[2019-06-13] MEDS: ROSUVASTATIN CALCIUM 10 MG TABLET PO SCH (20:34)
[2019-06-13] MEDS: HALOPERIDOL 10 MG TABLET PO SCH (20:35)
[2019-06-14] MEDS: LITHIUM CARBONATE 450 MG ER TABLET PO SCH ×2 (08:09→16:26)
[2019-06-14] MEDS: LORazepam 2 MG TABLET PO PRN ×3 (08:09→16:54)
[2019-06-14] MEDS: HALOPERIDOL 5 MG TABLET PO PRN ×2 (08:10→12:17)
[2019-06-14 08:29] VITALS: BP 100/58
[2019-06-14 16:15] VITALS: BP 109/71
[2019-06-14] MEDS: HALOPERIDOL 10 MG TABLET PO SCH (20:06)
[2019-06-14] MEDS: ROSUVASTATIN CALCIUM 10 MG TABLET PO SCH (20:06)
[2019-06-15] MEDS: LITHIUM CARBONATE 450 MG ER TABLET PO SCH ×2 (08:32→17:13)
[2019-06-15 08:49] VITALS: BP 107/63
[2019-06-15] MEDS: LORazepam 2 MG TABLET PO PRN ×2 (08:53→16:27)
[2019-06-15] MEDS ORDERED: LORazepam 2 MG/ML VIAL ONE (10:32)
[2019-06-15] MEDS ORDERED: LORazepam 2 MG/ML VIAL IM ONE (10:45)
[2019-06-15] MEDS ORDERED: HALOPERIDOL LACTATE 5 MG/ML VIAL IM ONE (10:45)
[2019-06-15] MEDS ORDERED: DiphenhydrAMINE HCL 50 MG/ML VIAL IM ONE (10:45)
[2019-06-15 11:05] VITALS: BP 108/64
[2019-06-15 16:14] VITALS: BP 102/74
[2019-06-15] MEDS: ROSUVASTATIN CALCIUM 10 MG TABLET PO SCH (20:10)
[2019-06-15] MEDS: HALOPERIDOL 10 MG TABLET PO SCH (20:11)
[2019-06-15] MEDS: ZOLPIDEM TARTRATE 10 MG TABLET PO PRN (20:57)
[2019-06-16 06:43] VITALS: BP 100/71
[2019-06-16 08:10] VITALS: BP 110/72
[2019-06-16] MEDS: LITHIUM CARBONATE 450 MG ER TABLET PO SCH ×2 (08:15→17:06)
[2019-06-16] MEDS: HALOPERIDOL 5 MG TABLET PO PRN (08:16)
[2019-06-16] MEDS: LORazepam 2 MG TABLET PO PRN ×3 (08:16→17:54)
[2019-06-16 08:28] VITALS: BP 98/50
[2019-06-16 16:09] VITALS: BP 118/74
[2019-06-16] MEDS: ROSUVASTATIN CALCIUM 10 MG TABLET PO SCH (20:26)
[2019-06-16] MEDS: HALOPERIDOL 10 MG TABLET PO SCH (20:26)
[2019-06-17 04:01] VITALS: BP 118/67
[2019-06-17 08:13] VITALS: BP 111/65
[2019-06-17] MEDS: LORazepam 2 MG TABLET PO PRN (08:29)
[2019-06-17] MEDS: LITHIUM CARBONATE 450 MG ER TABLET PO SCH (08:29)
[2019-06-17] MEDS ORDERED: HALO10 PO (10:57)
[2019-06-17] MEDS ORDERED: ROSU10TA22 PO (11:01)
== END 2019-06-17 13:37 | disposition home or self-care (01) | DRG 750 ==
LOC: EMS 16:46 → B3A 19:09
PROVIDERS: ADMIT Psychiatry & Neurology Psychiatry; ATTEND Psychiatry & Neurology Psychiatry
DX: F25.9 Schizoaffective disorder, unspecified (principal); R45.851 Suicidal ideations; Z59.0 Homelessness; D64.9 Anemia, unspecified; E78.5 Hyperlipidemia, unspecified; F12.90 Cannabis use, unspecified, uncomplicated; F31.9 Bipolar disorder, unspecified; F41.9 Anxiety disorder, unspecified; Z87.59 Personal history of other complications of pregnancy, childbirth and the puerperium; Z87.891 Personal history of nicotine dependence; Z79.899 Other long term (current) drug therapy
CPT/HCPCS: 84439; 84443; 87081; 96372; G0480; J0515; J1200; J1630; J2060

== ENCOUNTER 2019-09-27 13:50 | Emergency (ER) | payer MEDICAID, OTHER ==
[~2019-09-27] VITALS: Ht 165.1 cm; Wt 59.0 kg
[~2019-09-27 13:50] MED LIST changes: +HALO10 PO; +ROSU10TA22 PO
[2019-09-27 14:46] LABS: BASOPHILS % (AUTO) 0.6 % (0.0-2.0); EOSINOPHILS % (AUTO) 1.7 % (1.0-6.0); HEMATOCRIT 38.7 % (36-46); HEMOGLOBIN 12.9 g/dL (12.0-16.0); LYMPHOCYTES # (AUTO) 2.1 K/uL (1.0-4.8); LYMPHOCYTES % (AUTO) 27.7 % (22.0-44.0); MEAN CORPUSCULAR HEMOGLOBIN 31.3 pg (26.0-34.0); MEAN CORPUSCULAR HGB CONC 33.3 G/dL (31.0-37.0); MEAN CORPUSCULAR VOLUME 94 fL (80-100); MONOCYTES # (AUTO) 0.6 K/uL (0.1-1.0); MONOCYTES % (AUTO) 7.4 % (2.0-9.0); NEUTROPHILS # (AUTO) 4.8 K/uL (1.8-7.7); NEUTROPHILS % (AUTO) 62.6 % (40.0-70.0); PLATELET COUNT (AUTO) 400 K/uL (150-450); RED BLOOD CELL COUNT(AUTO) 4.13 MIL/uL (4.00-5.20)
[2019-09-27 14:54] LABS: AMPHET/METH SCREEN,URINE NEGATIVE (NEGATIVE); BARBITURATE SCREEN, URINE NEGATIVE (NEGATIVE); BENZODIAZEPINES SCREEN,URINE NEGATIVE (NEGATIVE); CANNABINOID SCREEN,URINE NEGATIVE (NEGATIVE); COCAINE SCREEN,URINE NEGATIVE (NEGATIVE); METHADONE SCREEN, URINE NEGATIVE (NEGATIVE); OPIATE SCREEN,URINE NEGATIVE (NEGATIVE); PHENCYCLIDINE SCREEN,URINE NEGATIVE (NEGATIVE)
[2019-09-27 15:01] LABS: ANION GAP 9 mmol/L (8-16); CALCIUM, TOTAL 9.3 mg/dL (8.8-10.5); CARBON DIOXIDE 25 mmol/L (22-29); CHLORIDE 106 mmol/L (98-107); CREATININE 0.75 mg/dL (0.60-1.30); GLOMERULAR FILTR. RATE CALC > 60 mL/min (>60); GLUCOSE,RANDOM 96 mg/dL (70-110); SODIUM SERUM 140 mmol/L (136-145); UREA NITROGEN, BLOOD 15 mg/dL (7-18)
[2019-09-27 15:05] LABS: ALANINE AMINOTRANSFERASE 17 U/L (12-78); ALBUMIN 3.9 g/dL (3.4-5.0); ALKALINE PHOSPHATASE 64 U/L (46-116); ASPARTATE AMINOTRANSFERASE 20 U/L (15-37); BILIRUBIN,TOTAL 0.5 mg/dL (0.1-1.0); HCG,QUANTITATIVE < 1 mIU/mL (0-6); TOTAL PROTEIN, SERUM 7.9 g/dL (6.4-8.2)
[2019-09-27 18:33] VITALS: BP 126/2
== END 2019-09-27 18:49 | disposition home or self-care (01) ==
LOC: EMS 13:52
DX: F69 Unspecified disorder of adult personality and behavior (principal); F20.0 Paranoid schizophrenia; F15.10 Other stimulant abuse, uncomplicated; F31.9 Bipolar disorder, unspecified; F17.210 Nicotine dependence, cigarettes, uncomplicated; Z59.0 Homelessness
CPT/HCPCS: 36415; 80053; 80307; 84702; 85025; 99284; G0480

== ENCOUNTER 2019-09-28 07:30 | Emergency (ER) | payer OTHER ==
[~2019-09-28] VITALS: Ht 165.1 cm; Wt 59.0 kg
[2019-09-28] MEDS ORDERED: LevETIRAcetam 1,000 MG in DEXTROSE 5%-WATER 100 ML IV ONE (08:15)
[2019-09-28 09:48] LABS: BASOPHILS % (AUTO) 0.7 % (0.0-2.0); EOSINOPHILS % (AUTO) 1.4 % (1.0-6.0); HEMATOCRIT 41.7 % (36-46); LYMPHOCYTES # (AUTO) 1.5 K/uL (1.0-4.8); LYMPHOCYTES % (AUTO) 23.2 % (22.0-44.0); MEAN CORPUSCULAR HEMOGLOBIN 31.9 pg (26.0-34.0); MEAN CORPUSCULAR HGB CONC 33.7 G/dL (31.0-37.0); MEAN CORPUSCULAR VOLUME 95 fL (80-100); MONOCYTES # (AUTO) 0.5 K/uL (0.1-1.0); MONOCYTES % (AUTO) 8.4 % (2.0-9.0); NEUTROPHILS # (AUTO) 4.2 K/uL (1.8-7.7); NEUTROPHILS % (AUTO) 66.3 % (40.0-70.0); PLATELET COUNT (AUTO) 433 K/uL (150-450); RED CELL DISTRIBUTION WIDTH 14.2 % (11.5-14.5)
[2019-09-28 09:56] LABS: ANION GAP 6 mmol/L (8-16); CALCIUM, TOTAL 9.5 mg/dL (8.8-10.5); CARBON DIOXIDE 28 mmol/L (22-29); CHLORIDE 104 mmol/L (98-107); GLOMERULAR FILTR. RATE CALC > 60 mL/min (>60); GLUCOSE,RANDOM 103 mg/dL (70-110); POTASSIUM 4.3 mmol/L (3.5-5.1); SODIUM SERUM 138 mmol/L (136-145); UREA NITROGEN, BLOOD 14 mg/dL (7-18)
[2019-09-28 10:00] VITALS: BP 118/91
[2019-09-28 10:02] LABS: LITHIUM < 0.20 mmol/L (0.60-1.20)
[2019-09-28 10:07] LABS: HCG,QUANTITATIVE < 1 mIU/mL (0-6)
== END 2019-09-28 10:48 | disposition home or self-care (01) ==
LOC: EMS 07:32
DX: G40.909 Epilepsy, unspecified, not intractable, without status epilepticus (principal); F31.9 Bipolar disorder, unspecified; F17.210 Nicotine dependence, cigarettes, uncomplicated; F15.90 Other stimulant use, unspecified, uncomplicated; Z59.0 Homelessness; Z79.899 Other long term (current) drug therapy
CPT/HCPCS: 70450; J0712; J7060

== ENCOUNTER 2019-09-28 16:47 | Inpatient (IN) | payer MEDICAID, OTHER ==
[~2019-09-28] VITALS: Ht 175.3 cm; Wt 63.5 kg
[2019-09-28 20:13] LABS: BASOPHILS % (AUTO) 1.1 % (0.0-2.0); EOSINOPHILS % (AUTO) 2.4 % (1.0-6.0); HEMOGLOBIN 13.4 g/dL (12.0-16.0); LYMPHOCYTES # (AUTO) 2.6 K/uL (1.0-4.8); LYMPHOCYTES % (AUTO) 40.1 % (22.0-44.0); MEAN CORPUSCULAR HEMOGLOBIN 31.6 pg (26.0-34.0); MEAN CORPUSCULAR HGB CONC 33.4 G/dL (31.0-37.0); MEAN CORPUSCULAR VOLUME 95 fL (80-100); MONOCYTES # (AUTO) 0.6 K/uL (0.1-1.0); MONOCYTES % (AUTO) 8.9 % (2.0-9.0); NEUTROPHILS # (AUTO) 3.1 K/uL (1.8-7.7); NEUTROPHILS % (AUTO) 47.5 % (40.0-70.0); PLATELET COUNT (AUTO) 435 K/uL (150-450); RED BLOOD CELL COUNT(AUTO) 4.23 MIL/uL (4.00-5.20)
[2019-09-28 20:14] LABS: AMPHET/METH SCREEN,URINE NEGATIVE (NEGATIVE); BARBITURATE SCREEN, URINE NEGATIVE (NEGATIVE); BENZODIAZEPINES SCREEN,URINE NEGATIVE (NEGATIVE); CANNABINOID SCREEN,URINE POSITIVE (NEGATIVE); COCAINE SCREEN,URINE NEGATIVE (NEGATIVE); METHADONE SCREEN, URINE NEGATIVE (NEGATIVE); OPIATE SCREEN,URINE NEGATIVE (NEGATIVE)
[2019-09-28 20:23] LABS: PHENCYCLIDINE SCREEN,URINE NEGATIVE (NEGATIVE)
[2019-09-28 20:24] LABS: ANION GAP 6 mmol/L (8-16); CALCIUM, TOTAL 9.3 mg/dL (8.8-10.5); CARBON DIOXIDE 28 mmol/L (22-29); CHLORIDE 104 mmol/L (98-107); CREATININE 0.76 mg/dL (0.60-1.30); GLOMERULAR FILTR. RATE CALC > 60 mL/min (>60); GLUCOSE,RANDOM 96 mg/dL (70-110); POTASSIUM 4.5 mmol/L (3.5-5.1); SODIUM SERUM 138 mmol/L (136-145); UREA NITROGEN, BLOOD 17 mg/dL (7-18)
[2019-09-28 20:30] LABS: ALANINE AMINOTRANSFERASE 18 U/L (12-78); ALKALINE PHOSPHATASE 67 U/L (46-116); ASPARTATE AMINOTRANSFERASE 23 U/L (15-37); BILIRUBIN,TOTAL 0.2 mg/dL (0.1-1.0); TOTAL PROTEIN, SERUM 8.5 g/dL (6.4-8.2)
[2019-09-28] MEDS ORDERED: HALOPERIDOL LACTATE 5 MG/ML VIAL IM ONE (22:00)
[2019-09-28] MEDS ORDERED: LORazepam 2 MG/ML VIAL IM ONE (22:00)
[2019-09-28] MEDS ORDERED: ACETAMINOPHEN 500 MG TABLET PO ONE (23:00)
[2019-09-28] MEDS ORDERED: ACETAMINOPHEN 325 MG TABLET PO PRN (23:45)
[2019-09-28] MEDS ORDERED: 0.9% SODIUM CHLORIDE 10 ML SYRINGE IVP PRN (23:45)
[2019-09-29] MEDS ORDERED: INFLUENZA VIRUS VACCINE QVS 2019-20 (3YR+)/PF 60 MCG/0.5 ML SYRINGE IM ONE (01:00)
[2019-09-29 02:11] VITALS: BP 97/54
[2019-09-29 07:03] LABS: CHOL/HDL RATIO 4.4 (3.9-5.7)
[2019-09-29 08:00] VITALS: BP 102/64
[2019-09-29] MEDS: LORazepam 2 MG TABLET PO PRN (09:19)
[2019-09-29] MEDS: HALOPERIDOL 5 MG TABLET PO PRN (09:19)
[2019-09-29] MEDS ORDERED: LORazepam 2 MG/ML VIAL IM ONE (17:30)
[2019-09-29] MEDS ORDERED: HALOPERIDOL LACTATE 5 MG/ML VIAL IM ONE (17:30)
[2019-09-29 21:43] VITALS: BP 102/71
[2019-09-30 10:53] VITALS: BP 121/79
[2019-09-30] MEDS: LORazepam 2 MG TABLET PO PRN ×2 (11:15→17:45)
[2019-09-30] MEDS: ROSUVASTATIN CALCIUM 10 MG TABLET PO SCH (20:18)
[2019-09-30] MEDS ORDERED: LORazepam 2 MG/ML VIAL IM ONE (23:30)
[2019-09-30] MEDS ORDERED: DiphenhydrAMINE HCL 50 MG/ML VIAL IM ONE (23:30)
[2019-09-30] MEDS ORDERED: HALOPERIDOL LACTATE 5 MG/ML VIAL IM ONE (23:30)
[2019-10-01 08:40] VITALS: BP 123/77
[2019-10-01] MEDS: HALOPERIDOL 5 MG TABLET PO PRN (10:11)
[2019-10-01] MEDS: LORazepam 2 MG TABLET PO PRN (10:11)
[2019-10-01] MEDS: ROSUVASTATIN CALCIUM 10 MG TABLET PO SCH (20:00)
[2019-10-01] MEDS: HALOPERIDOL 5 MG TABLET PO SCH (22:49)
[2019-10-02] MEDS: LORazepam 2 MG TABLET PO PRN ×2 (08:22→15:01)
[2019-10-02] MEDS: HALOPERIDOL 5 MG TABLET PO PRN ×2 (08:22→15:01)
[2019-10-02] MEDS: LITHIUM CARBONATE 450 MG ER TABLET PO SCH ×2 (08:22→16:02)
[2019-10-02 08:54] VITALS: BP 123/63
[2019-10-02 16:05] VITALS: BP 116/70
[2019-10-02] MEDS: ROSUVASTATIN CALCIUM 10 MG TABLET PO SCH (20:27)
[2019-10-02] MEDS: HALOPERIDOL 5 MG TABLET PO SCH (20:27)
[2019-10-03 06:00] VITALS: BP 120/74
[2019-10-03] MEDS: LORazepam 2 MG TABLET PO PRN ×3 (06:00→16:06)
[2019-10-03] MEDS: HALOPERIDOL 5 MG TABLET PO PRN ×2 (06:01→10:29)
[2019-10-03 08:00] VITALS: BP 122/68
[2019-10-03] MEDS: LITHIUM CARBONATE 450 MG ER TABLET PO SCH ×2 (09:33→16:06)
[2019-10-03 16:57] VITALS: BP 119/74
[2019-10-03] MEDS: ROSUVASTATIN CALCIUM 10 MG TABLET PO SCH (20:11)
[2019-10-03] MEDS: HALOPERIDOL 5 MG TABLET PO SCH (20:11)
[2019-10-04] MEDS: LORazepam 2 MG TABLET PO PRN ×2 (03:19→09:54)
[2019-10-04] MEDS: HALOPERIDOL 5 MG TABLET PO PRN ×2 (03:19→09:54)
[2019-10-04 08:19] VITALS: BP 125/83
[2019-10-04] MEDS: LITHIUM CARBONATE 450 MG ER TABLET PO SCH ×2 (09:54→16:24)
[2019-10-04 18:55] VITALS: BP 128/82
[2019-10-04] MEDS: HALOPERIDOL 5 MG TABLET PO SCH (20:19)
[2019-10-04] MEDS: ROSUVASTATIN CALCIUM 10 MG TABLET PO SCH (20:19)
[2019-10-05 00:01] VITALS: BP 124/73
[2019-10-05] MEDS: LORazepam 2 MG TABLET PO PRN ×3 (00:04→15:20)
[2019-10-05] MEDS: HALOPERIDOL 5 MG TABLET PO PRN ×3 (00:14→15:20)
[2019-10-05 08:00] VITALS: BP 101/70
[2019-10-05] MEDS: LITHIUM CARBONATE 450 MG ER TABLET PO SCH ×2 (08:51→16:49)
[2019-10-05 16:27] VITALS: BP 118/76
[2019-10-05] MEDS: HALOPERIDOL 5 MG TABLET PO SCH (20:34)
[2019-10-05] MEDS: ROSUVASTATIN CALCIUM 10 MG TABLET PO SCH (20:34)
[2019-10-06] MEDS: LORazepam 2 MG TABLET PO PRN ×2 (04:52→23:41)
[2019-10-06] MEDS: HALOPERIDOL 5 MG TABLET PO PRN (04:54)
[2019-10-06 08:00] VITALS: BP 111/67
[2019-10-06] MEDS: LITHIUM CARBONATE 450 MG ER TABLET PO SCH ×2 (08:23→17:13)
[2019-10-06 16:00] VITALS: BP 133/68
[2019-10-06] MEDS: ROSUVASTATIN CALCIUM 10 MG TABLET PO SCH (20:47)
[2019-10-06] MEDS: HALOPERIDOL 5 MG TABLET PO SCH (20:47)
[2019-10-06] MEDS: ZOLPIDEM TARTRATE 10 MG TABLET PO PRN (23:41)
[2019-10-07 00:19] VITALS: BP 110/70
[2019-10-07 08:00] VITALS: BP 107/67
[2019-10-07] MEDS: LITHIUM CARBONATE 450 MG ER TABLET PO SCH ×2 (08:27→16:23)
[2019-10-07] MEDS ORDERED: DiphenhydrAMINE HCL 50 MG/ML VIAL ONE (14:52)
[2019-10-07 16:00] VITALS: BP 119/74
[2019-10-07] MEDS: LORazepam 2 MG TABLET PO PRN (16:23)
[2019-10-07] MEDS: HALOPERIDOL 5 MG TABLET PO SCH (20:01)
[2019-10-07] MEDS: ROSUVASTATIN CALCIUM 10 MG TABLET PO SCH (20:01)
[2019-10-08 07:50] VITALS: BP 111/74
[2019-10-08 08:00] VITALS: BP_SYST 11; BP_SYST 111; BP_DIAS 74
[2019-10-08] MEDS: LITHIUM CARBONATE 450 MG ER TABLET PO SCH ×2 (08:16→16:37)
[2019-10-08] MEDS: LORazepam 2 MG TABLET PO PRN (15:38)
[2019-10-08] MEDS: HALOPERIDOL 5 MG TABLET PO PRN (16:40)
[2019-10-08 17:19] VITALS: BP 120/71
[2019-10-08] MEDS: ROSUVASTATIN CALCIUM 10 MG TABLET PO SCH (22:31)
[2019-10-08] MEDS: HALOPERIDOL 5 MG TABLET PO SCH (22:31)
[2019-10-08] MEDS: ZOLPIDEM TARTRATE 10 MG TABLET PO PRN (22:51)
[2019-10-09] MEDS: LITHIUM CARBONATE 450 MG ER TABLET PO SCH ×2 (08:17→16:19)
[2019-10-09 09:51] VITALS: BP 124/68
[2019-10-09 16:30] VITALS: BP 134/69
[2019-10-09] MEDS: LORazepam 2 MG TABLET PO PRN (17:56)
[2019-10-09] MEDS: HALOPERIDOL 5 MG TABLET PO PRN (17:56)
[2019-10-09] MEDS: HALOPERIDOL 5 MG TABLET PO SCH (20:52)
[2019-10-09] MEDS: ROSUVASTATIN CALCIUM 10 MG TABLET PO SCH (20:52)
[2019-10-10] MEDS: LITHIUM CARBONATE 450 MG ER TABLET PO SCH ×2 (08:07→16:34)
[2019-10-10 08:31] VITALS: BP 100/61
[2019-10-10 16:05] VITALS: BP 116/70
[2019-10-10] MEDS: LORazepam 2 MG TABLET PO PRN (16:34)
[2019-10-10] MEDS: HALOPERIDOL 5 MG TABLET PO PRN (16:34)
[2019-10-10] MEDS: HALOPERIDOL 5 MG TABLET PO SCH (20:46)
[2019-10-10] MEDS: ROSUVASTATIN CALCIUM 10 MG TABLET PO SCH (20:47)
[2019-10-11] MEDS: LITHIUM CARBONATE 450 MG ER TABLET PO SCH ×2 (07:31→16:41)
[2019-10-11] MEDS: LORazepam 2 MG TABLET PO PRN ×2 (07:31→15:32)
[2019-10-11] MEDS: HALOPERIDOL 5 MG TABLET PO PRN ×2 (07:31→15:32)
[2019-10-11 09:53] VITALS: BP 108/76
[2019-10-11 16:07] VITALS: BP 114/71
[2019-10-11] MEDS: HALOPERIDOL 5 MG TABLET PO SCH (20:01)
[2019-10-11] MEDS: ROSUVASTATIN CALCIUM 10 MG TABLET PO SCH (20:02)
[2019-10-11] MEDS: ZOLPIDEM TARTRATE 10 MG TABLET PO PRN (20:59)
[2019-10-12 08:25] VITALS: BP 120/64
[2019-10-12] MEDS: HALOPERIDOL 5 MG TABLET PO PRN ×2 (09:01→16:06)
[2019-10-12] MEDS: LORazepam 2 MG TABLET PO PRN ×2 (09:01→16:06)
[2019-10-12] MEDS: LITHIUM CARBONATE 450 MG ER TABLET PO SCH ×2 (09:01→16:06)
[2019-10-12 16:00] VITALS: BP_SYST 106; BP_SYST 120; BP_DIAS 63; BP_DIAS 64
[2019-10-12] MEDS: HALOPERIDOL 5 MG TABLET PO SCH (20:07)
[2019-10-12] MEDS: ROSUVASTATIN CALCIUM 10 MG TABLET PO SCH (20:07)
[2019-10-13 09:07] VITALS: BP 122/74
[2019-10-13] MEDS: HALOPERIDOL 5 MG TABLET PO PRN ×2 (09:50→13:52)
[2019-10-13] MEDS: LORazepam 2 MG TABLET PO PRN ×2 (09:50→13:52)
[2019-10-13] MEDS: LITHIUM CARBONATE 450 MG ER TABLET PO SCH ×2 (09:50→18:13)
[2019-10-13] MEDS: HALOPERIDOL 5 MG TABLET PO SCH (20:32)
[2019-10-13] MEDS: ROSUVASTATIN CALCIUM 10 MG TABLET PO SCH (20:32)
[2019-10-14] MEDS: LITHIUM CARBONATE 450 MG ER TABLET PO SCH ×2 (08:02→16:06)
[2019-10-14 08:24] VITALS: BP 123/72
[2019-10-14 16:52] VITALS: BP 111/83
== END 2019-10-14 20:00 | disposition home or self-care (01) | DRG 885 ==
LOC: EMS 16:52 → 3EC 23:00
PROVIDERS: ADMIT Psychiatry & Neurology Psychiatry; ATTEND Psychiatry & Neurology Psychiatry
DX: F20.0 Paranoid schizophrenia (principal); E78.5 Hyperlipidemia, unspecified; F12.10 Cannabis abuse, uncomplicated; F15.90 Other stimulant use, unspecified, uncomplicated; F31.9 Bipolar disorder, unspecified; Z72.0 Tobacco use; Z87.59 Personal history of other complications of pregnancy, childbirth and the puerperium; Z79.899 Other long term (current) drug therapy
CPT/HCPCS: G0480; J1200; J1630; J2060; J3230

== ENCOUNTER 2019-11-07 18:34 | Inpatient (IN) | payer MEDICAID, OTHER ==
[~2019-11-07] VITALS: Ht 160 cm; Wt 65.8 kg
[~2019-11-07 18:34] MED LIST changes: -HALO10 PO
[2019-11-07] MEDS ORDERED: HALOPERIDOL LACTATE 5 MG/ML VIAL ONE (19:08)
[2019-11-07] MEDS ORDERED: LORazepam 2 MG/ML VIAL ONE (19:08)
[2019-11-07] MEDS ORDERED: DiphenhydrAMINE HCL 50 MG/ML VIAL ONE (19:08)
[2019-11-07] MEDS ORDERED: LORazepam 2 MG/ML VIAL IM ONE ×2 (19:15)
[2019-11-07] MEDS ORDERED: HALOPERIDOL LACTATE 5 MG/ML VIAL IM ONE ×2 (19:15)
[2019-11-07] MEDS ORDERED: DiphenhydrAMINE HCL 50 MG/ML VIAL IM ONE ×2 (19:15)
[2019-11-07 21:56] LABS: BASOPHILS % (AUTO) 0.7 % (0.0-2.0); EOSINOPHILS % (AUTO) 1.3 % (1.0-6.0); HEMATOCRIT 34.6 % (36-46); HEMOGLOBIN 11.8 g/dL (12.0-16.0); LYMPHOCYTES % (AUTO) 27.3 % (22.0-44.0); MEAN CORPUSCULAR HEMOGLOBIN 32.4 pg (26.0-34.0); MEAN CORPUSCULAR VOLUME 95 fL (80-100); MONOCYTES # (AUTO) 0.6 K/uL (0.1-1.0); MONOCYTES % (AUTO) 8.9 % (2.0-9.0); NEUTROPHILS # (AUTO) 4.5 K/uL (1.8-7.7); NEUTROPHILS % (AUTO) 61.8 % (40.0-70.0); PLATELET COUNT (AUTO) 400 K/uL (150-450); RED BLOOD CELL COUNT(AUTO) 3.62 MIL/uL (4.00-5.20)
[2019-11-07] MEDS ORDERED: ZOLPIDEM TARTRATE 10 MG TABLET PO PRN (22:00)
[2019-11-07 22:24] LABS: ANION GAP 7 mmol/L (8-16); CALCIUM, TOTAL 8.7 mg/dL (8.8-10.5); CARBON DIOXIDE 25 mmol/L (22-29); CHLORIDE 105 mmol/L (98-107); CREATININE 0.77 mg/dL (0.60-1.30); GLOMERULAR FILTR. RATE CALC > 60 mL/min (>60); GLUCOSE,RANDOM 106 mg/dL (70-110); POTASSIUM 3.7 mmol/L (3.5-5.1); SODIUM SERUM 137 mmol/L (136-145); UREA NITROGEN, BLOOD 14 mg/dL (7-18)
[2019-11-07 22:30] LABS: ALANINE AMINOTRANSFERASE 14 U/L (12-78); ALBUMIN 3.3 g/dL (3.4-5.0); ALKALINE PHOSPHATASE 62 U/L (46-116); ASPARTATE AMINOTRANSFERASE 18 U/L (15-37); BILIRUBIN,TOTAL 0.2 mg/dL (0.1-1.0); TOTAL PROTEIN, SERUM 6.8 g/dL (6.4-8.2)
[2019-11-07 22:53] LABS: AMPHET/METH SCREEN,URINE NEGATIVE (NEGATIVE); BARBITURATE SCREEN, URINE NEGATIVE (NEGATIVE); BENZODIAZEPINES SCREEN,URINE NEGATIVE (NEGATIVE); CANNABINOID SCREEN,URINE NEGATIVE (NEGATIVE); COCAINE SCREEN,URINE NEGATIVE (NEGATIVE); METHADONE SCREEN, URINE NEGATIVE (NEGATIVE); OPIATE SCREEN,URINE NEGATIVE (NEGATIVE); PHENCYCLIDINE SCREEN,URINE NEGATIVE (NEGATIVE)
[2019-11-08 02:01] VITALS: BP 133/79
[2019-11-08] MEDS ORDERED: INFLUENZA VIRUS VACCINE QVS 2019-20 (3YR+)/PF 60 MCG/0.5 ML SYRINGE IM ONE (03:00)
[2019-11-08 07:54] LABS: CHOL/HDL RATIO 4.1 (3.9-5.7)
[2019-11-08] MEDS: LORazepam 2 MG TABLET PO PRN ×2 (08:54→19:00)
[2019-11-08] MEDS: HALOPERIDOL 5 MG TABLET PO PRN (08:54)
[2019-11-08 13:23] VITALS: BP 129/78
[2019-11-08 16:08] VITALS: BP 133/80
[2019-11-08] MEDS: LITHIUM CARBONATE 300 MG TABLET PO SCH (16:11)
[2019-11-08] MEDS: HALOPERIDOL 5 MG TABLET PO SCH (21:22)
[2019-11-08] MEDS: ROSUVASTATIN CALCIUM 10 MG TABLET PO SCH (21:22)
[2019-11-09] MEDS: LORazepam 2 MG TABLET PO PRN ×2 (07:48→15:17)
[2019-11-09] MEDS: HALOPERIDOL 5 MG TABLET PO PRN ×2 (07:49→15:17)
[2019-11-09] MEDS: LITHIUM CARBONATE 300 MG TABLET PO SCH ×2 (07:52→16:40)
[2019-11-09 08:00] VITALS: BP 132/71
[2019-11-09 15:10] VITALS: BP 130/80
[2019-11-09 16:17] VITALS: BP 113/80
[2019-11-09] MEDS: ROSUVASTATIN CALCIUM 10 MG TABLET PO SCH (20:35)
[2019-11-09] MEDS: HALOPERIDOL 5 MG TABLET PO SCH (20:36)
[2019-11-10 08:42] VITALS: BP 111/72
[2019-11-10] MEDS: LORazepam 2 MG TABLET PO PRN ×3 (09:09→20:27)
[2019-11-10] MEDS: HALOPERIDOL 5 MG TABLET PO PRN ×2 (09:09→14:18)
[2019-11-10] MEDS: LITHIUM CARBONATE 300 MG TABLET PO SCH ×2 (09:09→16:39)
[2019-11-10 16:48] VITALS: BP 150/69
[2019-11-10] MEDS: ROSUVASTATIN CALCIUM 10 MG TABLET PO SCH (20:25)
[2019-11-10] MEDS: HALOPERIDOL 5 MG TABLET PO SCH (20:25)
[2019-11-10] MEDS ORDERED: BACITRACIN 28.4 GM OINTMENT TP PRN (21:15)
[2019-11-10] MEDS ORDERED: MAGNESIUM HYDROXIDE SUSPENSION 30 ML UDCUP PO PRN (21:15)
[2019-11-10] MEDS ORDERED: LOPERAMIDE HCL 2 MG CAPSULE PO PRN (21:15)
[2019-11-10] MEDS ORDERED: ACETAMINOPHEN 325 MG TABLET PO PRN (21:15)
[2019-11-10] MEDS ORDERED: MAG HYDROX/AL HYDROX/SIMETH ES 30 ML SUSPENSION UDCUP PO PRN (21:15)
[2019-11-10] MEDS ORDERED: ALBUTEROL SULFATE HFA 90 MCG/PUFF 8 GM INHALER IH PRN (21:15)
[2019-11-10] MEDS ORDERED: OMEPRAZOLE 20 MG CAPSULE PO PRN (21:15)
[2019-11-10] MEDS ORDERED: IBUPROFEN 600 MG TABLET PO PRN (21:15)
[2019-11-10] MEDS ORDERED: ONDANSETRON HCL 4 MG TABLET PO PRN (21:15)
[2019-11-10] MEDS ORDERED: BENZOCAINE/MENTHOL LOZENGE MM PRN (21:15)
[2019-11-10] MEDS ORDERED: DOCUSATE SODIUM 100 MG CAPSULE PO PRN (21:15)
[2019-11-10] MEDS ORDERED: PETROLATUM,WHITE 28 GM JELLY TP PRN (21:15)
[2019-11-10] MEDS ORDERED: CloNIDine HCL 0.1 MG TABLET PO PRN (21:15)
[2019-11-11] MEDS: LORazepam 2 MG TABLET PO PRN ×3 (06:12→17:04)
[2019-11-11] MEDS: HALOPERIDOL 5 MG TABLET PO PRN ×3 (06:12→17:04)
[2019-11-11] MEDS: LITHIUM CARBONATE 300 MG TABLET PO SCH ×2 (08:38→16:04)
[2019-11-11 09:13] VITALS: BP 114/90
[2019-11-11 16:00] VITALS: BP 102/74
[2019-11-11] MEDS: ROSUVASTATIN CALCIUM 10 MG TABLET PO SCH (20:34)
[2019-11-11] MEDS: HALOPERIDOL 5 MG TABLET PO SCH (20:34)
[2019-11-12] MEDS: LITHIUM CARBONATE 300 MG TABLET PO SCH ×2 (07:55→16:51)
[2019-11-12] MEDS: HALOPERIDOL 5 MG TABLET PO PRN ×2 (07:56→16:35)
[2019-11-12] MEDS: LORazepam 2 MG TABLET PO PRN ×2 (07:56→16:35)
[2019-11-12 08:23] VITALS: BP 130/85
[2019-11-12 16:33] VITALS: BP 124/79
[2019-11-12] MEDS: ROSUVASTATIN CALCIUM 10 MG TABLET PO SCH (21:28)
[2019-11-12] MEDS: HALOPERIDOL 5 MG TABLET PO SCH (21:29)
[2019-11-13 08:02] VITALS: BP 102/64
[2019-11-13] MEDS: LITHIUM CARBONATE 300 MG TABLET PO SCH ×2 (08:06→16:29)
[2019-11-13] MEDS: LORazepam 2 MG TABLET PO PRN ×2 (08:07→16:19)
[2019-11-13] MEDS: HALOPERIDOL 5 MG TABLET PO PRN ×2 (08:07→16:20)
[2019-11-13 18:06] VITALS: BP 115/68
[2019-11-13] MEDS: ROSUVASTATIN CALCIUM 10 MG TABLET PO SCH (20:32)
[2019-11-13] MEDS: HALOPERIDOL 5 MG TABLET PO SCH (20:33)
[2019-11-14 08:20] VITALS: BP 100/60
[2019-11-14] MEDS: LITHIUM CARBONATE 300 MG TABLET PO SCH ×2 (08:26→16:39)
[2019-11-14 17:08] VITALS: BP 114/74
[2019-11-14] MEDS: HALOPERIDOL 5 MG TABLET PO SCH (21:52)
[2019-11-14] MEDS: ROSUVASTATIN CALCIUM 10 MG TABLET PO SCH (21:52)
[2019-11-14] MEDS: LORazepam 2 MG TABLET PO PRN (23:50)
[2019-11-15] MEDS: LITHIUM CARBONATE 300 MG TABLET PO SCH ×2 (08:09→16:04)
[2019-11-15 08:17] VITALS: BP 110/59
[2019-11-15] MEDS: LORazepam 2 MG TABLET PO PRN (13:11)
[2019-11-15 17:46] VITALS: BP 114/77
[2019-11-15] MEDS: ROSUVASTATIN CALCIUM 10 MG TABLET PO SCH (20:14)
[2019-11-15] MEDS: HALOPERIDOL 5 MG TABLET PO SCH (20:14)
[2019-11-16 08:18] VITALS: BP 107/69
[2019-11-16] MEDS: LORazepam 2 MG TABLET PO PRN (08:25)
[2019-11-16] MEDS: LITHIUM CARBONATE 300 MG TABLET PO SCH ×2 (08:25→17:08)
[2019-11-16 16:09] VITALS: BP 109/75
[2019-11-16] MEDS ORDERED: HALOPERIDOL LACTATE 5 MG/ML VIAL ONE (17:51)
[2019-11-16] MEDS ORDERED: LORazepam 2 MG/ML VIAL ONE (17:51)
[2019-11-16] MEDS ORDERED: DiphenhydrAMINE HCL 50 MG/ML VIAL ONE (17:51)
[2019-11-16] MEDS ORDERED: HALOPERIDOL LACTATE 5 MG/ML VIAL IM ONE (18:00)
[2019-11-16] MEDS ORDERED: LORazepam 2 MG/ML VIAL IM ONE (18:00)
[2019-11-16] MEDS ORDERED: DiphenhydrAMINE HCL 50 MG/ML VIAL IM ONE (18:00)
[2019-11-16] MEDS: ROSUVASTATIN CALCIUM 10 MG TABLET PO SCH (21:40)
[2019-11-16] MEDS: HALOPERIDOL 5 MG TABLET PO SCH (21:41)
[2019-11-17] MEDS: LITHIUM CARBONATE 300 MG TABLET PO SCH ×2 (08:13→17:11)
[2019-11-17] MEDS: LORazepam 2 MG TABLET PO PRN (12:50)
[2019-11-17] MEDS: HALOPERIDOL 5 MG TABLET PO PRN (12:50)
[2019-11-17 16:33] VITALS: BP 101/63
[2019-11-17] MEDS: HALOPERIDOL 5 MG TABLET PO SCH (20:32)
[2019-11-17] MEDS: ROSUVASTATIN CALCIUM 10 MG TABLET PO SCH (20:32)
[2019-11-18] MEDS: HALOPERIDOL 5 MG TABLET PO PRN (07:59)
[2019-11-18] MEDS: LITHIUM CARBONATE 300 MG TABLET PO SCH ×2 (07:59→16:38)
[2019-11-18 08:00] VITALS: BP 107/77
[2019-11-18 16:44] VITALS: BP 133/69
[2019-11-18] MEDS: ROSUVASTATIN CALCIUM 10 MG TABLET PO SCH (20:49)
[2019-11-18] MEDS: HALOPERIDOL 5 MG TABLET PO SCH (20:50)
[2019-11-19 08:34] VITALS: BP 100/66
[2019-11-19] MEDS: LITHIUM CARBONATE 300 MG TABLET PO SCH ×2 (08:47→17:06)
[2019-11-19] MEDS: HALOPERIDOL 5 MG TABLET PO PRN ×2 (08:47→17:06)
[2019-11-19 16:56] VITALS: BP 110/72
[2019-11-19] MEDS: ROSUVASTATIN CALCIUM 10 MG TABLET PO SCH (20:17)
[2019-11-19] MEDS: HALOPERIDOL 5 MG TABLET PO SCH (20:18)
[2019-11-20 08:05] VITALS: BP 110/67
[2019-11-20] MEDS: LITHIUM CARBONATE 300 MG TABLET PO SCH ×2 (09:31→16:02)
[2019-11-20] MEDS: HALOPERIDOL 5 MG TABLET PO PRN (15:39)
[2019-11-20 16:29] VITALS: BP 113/69
[2019-11-20] MEDS: ROSUVASTATIN CALCIUM 10 MG TABLET PO SCH (20:04)
[2019-11-20] MEDS: HALOPERIDOL 5 MG TABLET PO SCH (20:04)
[2019-11-21] MEDS: HALOPERIDOL 5 MG TABLET PO PRN (00:38)
[2019-11-21 08:00] VITALS: BP 116/68
[2019-11-21] MEDS: LITHIUM CARBONATE 300 MG TABLET PO SCH ×2 (09:10→16:37)
[2019-11-21 16:43] VITALS: BP 125/71
[2019-11-21] MEDS: HALOPERIDOL 5 MG TABLET PO SCH (20:38)
[2019-11-21] MEDS: ROSUVASTATIN CALCIUM 10 MG TABLET PO SCH (20:38)
[2019-11-22 08:00] VITALS: BP 127/76
[2019-11-22] MEDS: LITHIUM CARBONATE 300 MG TABLET PO SCH ×2 (09:53→15:58)
[2019-11-22] MEDS ORDERED: HALO5TAB2 PO (12:41)
[2019-11-22 16:06] VITALS: BP 110/60
== END 2019-11-22 16:15 | disposition home or self-care (01) | DRG 885 ==
LOC: EMS 18:42 → 3EC 11-08 00:15
PROVIDERS: ADMIT Psychiatry & Neurology Psychiatry; ATTEND Psychiatry & Neurology Psychiatry
DX: F25.0 Schizoaffective disorder, bipolar type (principal); E55.9 Vitamin D deficiency, unspecified; E78.5 Hyperlipidemia, unspecified; F17.200 Nicotine dependence, unspecified, uncomplicated; F41.9 Anxiety disorder, unspecified; G40.909 Epilepsy, unspecified, not intractable, without status epilepticus; F19.10 Other psychoactive substance abuse, uncomplicated; G47.00 Insomnia, unspecified; Z71.6 Tobacco abuse counseling; Z59.0 Homelessness; Z56.0 Unemployment, unspecified; Z71.51 Drug abuse counseling and surveillance of drug abuser
CPT/HCPCS: 87081; G0480; J1200; J1630; J2060

== ENCOUNTER 2019-12-28 11:41 | Emergency (ER) | payer MEDICAID, OTHER ==
[~2019-12-28] VITALS: Ht 160 cm; Wt 60.0 kg
[~2019-12-28 11:41] MED LIST changes: +HALO5TAB2 PO
[2019-12-28 17:14] VITALS: BP 158/69
== END 2019-12-28 17:39 | disposition home or self-care (01) ==
LOC: EMS 11:43
DX: F20.9 Schizophrenia, unspecified (principal); F31.9 Bipolar disorder, unspecified; F17.210 Nicotine dependence, cigarettes, uncomplicated; F15.90 Other stimulant use, unspecified, uncomplicated; Z98.890 Other specified postprocedural states; Z79.899 Other long term (current) drug therapy

== ENCOUNTER 2020-01-05 22:03 | Emergency (ER) | payer OTHER ==
[~2020-01-05] VITALS: Ht 162.6 cm; Wt 61.4 kg
[2020-01-05 23:13] LABS: BASOPHILS % (AUTO) 0.6 % (0.0-2.0); EOSINOPHILS % (AUTO) 2.4 % (1.0-6.0); HEMATOCRIT 38.9 % (36-46); LYMPHOCYTES # (AUTO) 2.3 K/uL (1.0-4.8); LYMPHOCYTES % (AUTO) 38.3 % (22.0-44.0); MEAN CORPUSCULAR HGB CONC 33.3 G/dL (31.0-37.0); MEAN CORPUSCULAR VOLUME 96 fL (80-100); MONOCYTES # (AUTO) 0.4 K/uL (0.1-1.0); MONOCYTES % (AUTO) 7.2 % (2.0-9.0); NEUTROPHILS # (AUTO) 3.1 K/uL (1.8-7.7); NEUTROPHILS % (AUTO) 51.5 % (40.0-70.0); PLATELET COUNT (AUTO) 409 K/uL (150-450); RED BLOOD CELL COUNT(AUTO) 4.05 MIL/uL (4.00-5.20)
[2020-01-05 23:34] LABS: ANION GAP 11 mmol/L (8-16); CALCIUM, TOTAL 9.1 mg/dL (8.8-10.5); CARBON DIOXIDE 27 mmol/L (22-29); CHLORIDE 104 mmol/L (98-107); CREATININE 0.66 mg/dL (0.60-1.30); GLOMERULAR FILTR. RATE CALC > 60 mL/min (>60); GLUCOSE,RANDOM 70 mg/dL (70-110); POTASSIUM 3.8 mmol/L (3.5-5.1); SODIUM SERUM 142 mmol/L (136-145); UREA NITROGEN, BLOOD 20 mg/dL (7-18)
[2020-01-05 23:40] LABS: ALANINE AMINOTRANSFERASE 31 U/L (12-78); ALBUMIN 3.6 g/dL (3.4-5.0); ALKALINE PHOSPHATASE 71 U/L (46-116); ASPARTATE AMINOTRANSFERASE 17 U/L (15-37); BILIRUBIN,TOTAL 0.2 mg/dL (0.1-1.0); TOTAL PROTEIN, SERUM 7.7 g/dL (6.4-8.2)
[2020-01-06 01:25] VITALS: BP 132/75
== END 2020-01-06 01:44 | disposition home or self-care (01) ==
LOC: EMS 22:05
DX: Z76.5 Malingerer [conscious simulation] (principal); F31.9 Bipolar disorder, unspecified; F20.9 Schizophrenia, unspecified; F17.210 Nicotine dependence, cigarettes, uncomplicated; F19.90 Other psychoactive substance use, unspecified, uncomplicated; Z59.0 Homelessness
CPT/HCPCS: 80053; 85025; 99283; G0480

== ENCOUNTER 2020-03-31 09:07 | Inpatient (IN) | payer MEDICAID ==
[~2020-03-31] VITALS: Ht 167.6 cm; Wt 65.8 kg
[2020-03-31] MEDS ORDERED: TUBERCULIN, PURIFIED PROTEIN DERIVATIVE 5 TU/0.1 ML SYRINGE ID ONE (15:00)
[2020-04-01] MEDS: BACITRACIN 28 GM OINTMENT TP SCH ×2 (08:13→16:57)
[2020-04-01 08:37] LABS: BASOPHILS % (AUTO) 0.7 % (0.0-2.0); EOSINOPHILS % (AUTO) 2.6 % (1.0-6.0); HEMATOCRIT 36.9 % (36-46); HEMOGLOBIN 12.2 g/dL (12.0-16.0); LYMPHOCYTES # (AUTO) 1.5 K/uL (1.0-4.8); LYMPHOCYTES % (AUTO) 30.2 % (22.0-44.0); MEAN CORPUSCULAR HGB CONC 33.1 G/dL (31.0-37.0); MEAN CORPUSCULAR VOLUME 97 fL (80-100); MONOCYTES # (AUTO) 0.5 K/uL (0.1-1.0); MONOCYTES % (AUTO) 9.5 % (2.0-9.0); NEUTROPHILS # (AUTO) 2.8 K/uL (1.8-7.7); PLATELET COUNT (AUTO) 365 K/uL (150-450); RED BLOOD CELL COUNT(AUTO) 3.82 MIL/uL (4.00-5.20)
[2020-04-01 08:58] LABS: ALANINE AMINOTRANSFERASE 23 U/L (12-78); ALBUMIN 3.3 g/dL (3.4-5.0); ALKALINE PHOSPHATASE 63 U/L (46-116); ANION GAP 7 mmol/L (8-16); ASPARTATE AMINOTRANSFERASE 16 U/L (15-37); BILIRUBIN,TOTAL 0.2 mg/dL (0.1-1.0); CALCIUM, TOTAL 9.2 mg/dL (8.8-10.5); CARBON DIOXIDE 26 mmol/L (22-29); CHLORIDE 105 mmol/L (98-107); CREATININE 0.76 mg/dL (0.60-1.30); GLOMERULAR FILTR. RATE CALC > 60 mL/min (>60); GLUCOSE,RANDOM 81 mg/dL (70-110); HCG,QUANTITATIVE < 1 mIU/mL (0-6); POTASSIUM 4.3 mmol/L (3.5-5.1); SODIUM SERUM 138 mmol/L (136-145); TOTAL PROTEIN, SERUM 7.1 g/dL (6.4-8.2); UREA NITROGEN, BLOOD 15 mg/dL (7-18)
[2020-04-01] MEDS ORDERED: BACITRACIN 28 GM OINTMENT TP SCH (09:00)
[2020-04-01] MEDS: LORazepam 2 MG TABLET PO PRN ×2 (09:23→20:18)
[2020-04-01] MEDS: LITHIUM CARBONATE 300 MG TABLET PO SCH ×2 (12:47→16:56)
[2020-04-01 16:19] VITALS: BP 116/81
[2020-04-01] MEDS: HALOPERIDOL 5 MG TABLET PO SCH (20:18)
[2020-04-01] MEDS: ZOLPIDEM TARTRATE 10 MG TABLET PO PRN (20:55)
[2020-04-02 04:22] VITALS: BP 120/64
[2020-04-02 08:56] LABS: AMPHET/METH SCREEN,URINE NEGATIVE (NEGATIVE); BARBITURATE SCREEN, URINE NEGATIVE (NEGATIVE); BENZODIAZEPINES SCREEN,URINE NEGATIVE (NEGATIVE); CANNABINOID SCREEN,URINE NEGATIVE (NEGATIVE); COCAINE SCREEN,URINE NEGATIVE (NEGATIVE); METHADONE SCREEN, URINE NEGATIVE (NEGATIVE); OPIATE SCREEN,URINE NEGATIVE (NEGATIVE)
[2020-04-02 08:59] LABS: APPEARANCE,URINE CLEAR (CLEAR); BILIRUBIN,URINE NEGATIVE (NEGATIVE); GLUCOSE, URINE (UA) NEGATIVE (NEGATIVE); KETONES,URINE NEGATIVE (NEGATIVE); LEUKOCYTE ESTERASE ,URINE NEGATIVE (NEGATIVE); NITRATE,URINE NEGATIVE (NEGATIVE); OCCULT BLOOD,URINE NEGATIVE (NEGATIVE); PH,URINE 7.5 (5.0-8.0); PROTEIN,URINE NEGATIVE (NEGATIVE); UROBILINOGEN,URINE 0.2 mg/dL (<=1.0)
[2020-04-02 09:04] LABS: PHENCYCLIDINE SCREEN,URINE NEGATIVE (NEGATIVE)
[2020-04-02] MEDS: BACITRACIN 28 GM OINTMENT TP SCH ×2 (09:06→16:50)
[2020-04-02] MEDS: LITHIUM CARBONATE 300 MG TABLET PO SCH ×2 (09:06→16:51)
[2020-04-02] MEDS: LORazepam 2 MG TABLET PO PRN ×2 (09:06→15:39)
[2020-04-02 09:18] VITALS: BP 141/90
[2020-04-02 16:23] VITALS: BP 133/88
[2020-04-02] MEDS: HALOPERIDOL 5 MG TABLET PO PRN (16:51)
[2020-04-02] MEDS: HALOPERIDOL 5 MG TABLET PO SCH (20:56)
[2020-04-02] MEDS: ZOLPIDEM TARTRATE 10 MG TABLET PO PRN (20:56)
[2020-04-03 01:13] VITALS: BP 116/74
[2020-04-03] MEDS: LITHIUM CARBONATE 300 MG TABLET PO SCH ×2 (08:40→16:04)
[2020-04-03] MEDS: LORazepam 2 MG TABLET PO PRN ×2 (08:40→14:50)
[2020-04-03] MEDS: BACITRACIN 28 GM OINTMENT TP SCH ×2 (08:42→16:04)
[2020-04-03 09:00] VITALS: BP 117/74
[2020-04-03] MEDS: HALOPERIDOL 5 MG TABLET PO PRN (13:18)
[2020-04-03] MEDS: MUPIROCIN CALCIUM 2% 22 GM OINTMENT NASAL SCH (17:15)
[2020-04-03 17:30] VITALS: BP 114/66
[2020-04-03] MEDS: HALOPERIDOL 5 MG TABLET PO SCH (20:02)
[2020-04-03] MEDS: ZOLPIDEM TARTRATE 10 MG TABLET PO PRN (20:33)
[2020-04-04 03:54] VITALS: BP 104/72
[2020-04-04 08:00] VITALS: BP 110/72
[2020-04-04] MEDS: LITHIUM CARBONATE 300 MG TABLET PO SCH ×2 (08:28→17:12)
[2020-04-04] MEDS: MUPIROCIN CALCIUM 2% 22 GM OINTMENT NASAL SCH ×2 (08:28→16:29)
[2020-04-04] MEDS: BACITRACIN 28 GM OINTMENT TP SCH ×2 (08:28→16:29)
[2020-04-04] MEDS: LORazepam 2 MG TABLET PO PRN ×2 (08:29→16:29)
[2020-04-04] MEDS: HALOPERIDOL 5 MG TABLET PO PRN ×2 (09:27→16:29)
[2020-04-04 16:18] VITALS: BP 133/80
[2020-04-04] MEDS: HALOPERIDOL 5 MG TABLET PO SCH (20:05)
[2020-04-05 01:54] VITALS: BP 126/74
[2020-04-05] MEDS: HALOPERIDOL 5 MG TABLET PO PRN ×3 (06:16→17:21)
[2020-04-05] MEDS: LORazepam 2 MG TABLET PO PRN ×3 (06:16→17:21)
[2020-04-05] MEDS: BACITRACIN 28 GM OINTMENT TP SCH ×2 (08:25→17:21)
[2020-04-05] MEDS: LITHIUM CARBONATE 300 MG TABLET PO SCH ×2 (08:25→17:21)
[2020-04-05] MEDS: MUPIROCIN CALCIUM 2% 22 GM OINTMENT NASAL SCH ×2 (08:29→17:21)
[2020-04-05 08:32] VITALS: BP 118/74
[2020-04-05 16:36] VITALS: BP 114/79
[2020-04-05] MEDS: HALOPERIDOL 5 MG TABLET PO SCH (20:49)
[2020-04-05] MEDS: ZOLPIDEM TARTRATE 10 MG TABLET PO PRN (20:49)
[2020-04-06 05:49] VITALS: BP 118/72
[2020-04-06] MEDS: LITHIUM CARBONATE 300 MG TABLET PO SCH ×2 (08:01→16:16)
[2020-04-06] MEDS: BACITRACIN 28 GM OINTMENT TP SCH ×2 (08:01→16:16)
[2020-04-06] MEDS: LORazepam 2 MG TABLET PO PRN ×2 (08:01→16:16)
[2020-04-06] MEDS: MUPIROCIN CALCIUM 2% 22 GM OINTMENT NASAL SCH ×2 (08:02→16:16)
[2020-04-06 08:53] VITALS: BP 117/67
[2020-04-06] MEDS: HALOPERIDOL 5 MG TABLET PO PRN (13:12)
[2020-04-06 16:31] VITALS: BP 124/72
[2020-04-06] MEDS: ZOLPIDEM TARTRATE 10 MG TABLET PO PRN (20:23)
[2020-04-06] MEDS: HALOPERIDOL 5 MG TABLET PO SCH (20:23)
[2020-04-07 00:47] VITALS: BP 124/80
[2020-04-07 08:17] VITALS: BP 127/81
[2020-04-07] MEDS: MUPIROCIN CALCIUM 2% 22 GM OINTMENT NASAL SCH ×2 (08:30→17:35)
[2020-04-07] MEDS: BACITRACIN 28 GM OINTMENT TP SCH ×2 (08:30→17:34)
[2020-04-07] MEDS: LORazepam 2 MG TABLET PO PRN ×2 (08:31→20:04)
[2020-04-07] MEDS: LITHIUM CARBONATE 300 MG TABLET PO SCH ×2 (08:31→17:34)
[2020-04-07 16:48] VITALS: BP 133/71
[2020-04-07] MEDS: HALOPERIDOL 5 MG TABLET PO SCH (20:04)
[2020-04-07] MEDS: ZOLPIDEM TARTRATE 10 MG TABLET PO PRN (20:57)
[2020-04-08 06:14] VITALS: BP 121/60
[2020-04-08 08:24] VITALS: BP 110/66
[2020-04-08] MEDS: MUPIROCIN CALCIUM 2% 22 GM OINTMENT NASAL SCH (08:51)
[2020-04-08] MEDS: BACITRACIN 28 GM OINTMENT TP SCH ×2 (08:51→17:01)
[2020-04-08] MEDS: LORazepam 2 MG TABLET PO PRN ×2 (08:51→15:47)
[2020-04-08] MEDS: LITHIUM CARBONATE 300 MG TABLET PO SCH ×2 (08:51→17:00)
[2020-04-08] MEDS: HALOPERIDOL 5 MG TABLET PO PRN (09:34)
[2020-04-08 16:25] VITALS: BP 117/77
[2020-04-08] MEDS: HALOPERIDOL 5 MG TABLET PO SCH (21:11)
[2020-04-09 06:53] VITALS: BP 120/72
[2020-04-09] MEDS: BACITRACIN 28 GM OINTMENT TP SCH ×2 (08:28→17:06)
[2020-04-09 08:31] VITALS: BP 119/66
[2020-04-09] MEDS: LORazepam 2 MG TABLET PO PRN ×2 (08:36→16:59)
[2020-04-09] MEDS: HALOPERIDOL 5 MG TABLET PO PRN ×2 (10:32→18:11)
[2020-04-09] MEDS: LITHIUM CARBONATE 300 MG TABLET PO SCH ×2 (12:36→16:55)
[2020-04-09 16:41] VITALS: BP 110/66
[2020-04-09] MEDS: HALOPERIDOL 5 MG TABLET PO SCH (21:00)
[2020-04-10 02:03] VITALS: BP 102/62
[2020-04-10 08:15] VITALS: BP 106/55
[2020-04-10] MEDS: BACITRACIN 28 GM OINTMENT TP SCH ×2 (09:20→16:04)
[2020-04-10] MEDS: LORazepam 2 MG TABLET PO PRN ×2 (10:10→16:07)
[2020-04-10] MEDS: HALOPERIDOL 5 MG TABLET PO PRN ×2 (11:05→16:06)
[2020-04-10] MEDS: LITHIUM CARBONATE 450 MG ER TABLET PO SCH ×2 (12:25→16:06)
[2020-04-10 16:58] VITALS: BP 122/75
[2020-04-10] MEDS: ZOLPIDEM TARTRATE 10 MG TABLET PO PRN (20:15)
[2020-04-10] MEDS: HALOPERIDOL 5 MG TABLET PO SCH (20:15)
[2020-04-11 05:11] VITALS: BP 114/66
[2020-04-11] MEDS: BACITRACIN 28 GM OINTMENT TP SCH ×2 (08:03→16:55)
[2020-04-11] MEDS: LITHIUM CARBONATE 450 MG ER TABLET PO SCH ×2 (08:03→16:55)
[2020-04-11] MEDS: LORazepam 2 MG TABLET PO PRN ×2 (08:03→16:55)
[2020-04-11 08:42] VITALS: BP 101/70
[2020-04-11] MEDS: HALOPERIDOL 5 MG TABLET PO PRN (12:20)
[2020-04-11 17:33] VITALS: BP 104/58
[2020-04-11] MEDS: HALOPERIDOL 5 MG TABLET PO SCH (20:54)
[2020-04-11] MEDS: ZOLPIDEM TARTRATE 10 MG TABLET PO PRN (20:54)
[2020-04-12 02:29] VITALS: BP 120/80
[2020-04-12 08:22] VITALS: BP 118/83
[2020-04-12] MEDS: LITHIUM CARBONATE 450 MG ER TABLET PO SCH ×2 (09:12→17:25)
[2020-04-12] MEDS: BACITRACIN 28 GM OINTMENT TP SCH ×2 (09:13→17:25)
[2020-04-12] MEDS: LORazepam 2 MG TABLET PO PRN (10:37)
[2020-04-12] MEDS: HALOPERIDOL 5 MG TABLET PO PRN (10:38)
[2020-04-12] MEDS ORDERED: DiphenhydrAMINE HCL 50 MG/ML VIAL ONE (11:37)
[2020-04-12] MEDS ORDERED: HALOPERIDOL LACTATE 5 MG/ML VIAL ONE (11:37)
[2020-04-12] MEDS ORDERED: HALOPERIDOL LACTATE 5 MG/ML VIAL IM ONE (11:45)
[2020-04-12] MEDS ORDERED: LORazepam 2 MG/ML VIAL IM ONE (11:45)
[2020-04-12] MEDS ORDERED: DiphenhydrAMINE HCL 50 MG/ML VIAL IM ONE (11:45)
[2020-04-12] MEDS: ZOLPIDEM TARTRATE 10 MG TABLET PO PRN (20:37)
[2020-04-12] MEDS: HALOPERIDOL 5 MG TABLET PO SCH (20:37)
[2020-04-13 06:00] VITALS: BP 117/82
[2020-04-13] MEDS: BACITRACIN 28 GM OINTMENT TP SCH ×2 (08:44→17:02)
[2020-04-13] MEDS: LORazepam 2 MG TABLET PO PRN (08:44)
[2020-04-13] MEDS: LITHIUM CARBONATE 450 MG ER TABLET PO SCH ×2 (08:44→17:03)
[2020-04-13] MEDS: HALOPERIDOL 5 MG TABLET PO PRN (10:00)
[2020-04-13 17:27] VITALS: BP 111/68
[2020-04-13] MEDS: ZOLPIDEM TARTRATE 10 MG TABLET PO PRN (20:43)
[2020-04-13] MEDS: HALOPERIDOL 5 MG TABLET PO SCH (20:43)
[2020-04-14 01:55] VITALS: BP 105/70
[2020-04-14 08:21] VITALS: BP 112/63
[2020-04-14] MEDS: BACITRACIN 28 GM OINTMENT TP SCH ×2 (08:31→17:37)
[2020-04-14] MEDS: LITHIUM CARBONATE 450 MG ER TABLET PO SCH ×2 (08:31→16:56)
[2020-04-14] MEDS: LORazepam 2 MG TABLET PO PRN ×2 (08:49→17:51)
[2020-04-14] MEDS: HALOPERIDOL 5 MG TABLET PO PRN (09:14)
[2020-04-14 17:26] VITALS: BP 106/64
[2020-04-14] MEDS: ZOLPIDEM TARTRATE 10 MG TABLET PO PRN (20:20)
[2020-04-14] MEDS: HALOPERIDOL 5 MG TABLET PO SCH (20:20)
[2020-04-15 02:31] VITALS: BP 120/67
[2020-04-15 08:30] VITALS: BP 116/68
[2020-04-15] MEDS: BACITRACIN 28 GM OINTMENT TP SCH ×2 (09:02→16:55)
[2020-04-15] MEDS: LITHIUM CARBONATE 450 MG ER TABLET PO SCH ×2 (09:03→16:03)
[2020-04-15] MEDS: LORazepam 2 MG TABLET PO PRN ×2 (09:03→16:03)
[2020-04-15] MEDS: HALOPERIDOL 5 MG TABLET PO PRN (16:03)
[2020-04-15 17:06] VITALS: BP 109/64
[2020-04-15 17:09] VITALS: BP_SYST 109; BP_SYST 131; BP_DIAS 64; BP_DIAS 84
[2020-04-15] MEDS: ZOLPIDEM TARTRATE 10 MG TABLET PO PRN (20:33)
[2020-04-15] MEDS: HALOPERIDOL 5 MG TABLET PO SCH (20:33)
[2020-04-16 04:42] VITALS: BP 101/67
[2020-04-16] MEDS: LITHIUM CARBONATE 450 MG ER TABLET PO SCH ×2 (08:23→16:35)
[2020-04-16 08:24] VITALS: BP 108/60
[2020-04-16] MEDS: BACITRACIN 28 GM OINTMENT TP SCH ×2 (09:54→16:36)
[2020-04-16] MEDS ORDERED: TUBERCULIN, PURIFIED PROTEIN DERIVATIVE 5 TU/0.1 ML SYRINGE ID ONE (14:00)
[2020-04-16 16:08] VITALS: BP 110/68
[2020-04-16] MEDS: LORazepam 2 MG TABLET PO PRN (16:35)
[2020-04-16] MEDS: HALOPERIDOL 5 MG TABLET PO PRN (16:36)
[2020-04-16] MEDS: ZOLPIDEM TARTRATE 10 MG TABLET PO PRN (20:20)
[2020-04-16] MEDS: HALOPERIDOL 5 MG TABLET PO SCH (20:20)
[2020-04-17] MEDS: HALOPERIDOL 5 MG TABLET PO PRN ×2 (03:37→11:59)
[2020-04-17] MEDS: LORazepam 2 MG TABLET PO PRN ×3 (03:37→19:20)
[2020-04-17 03:42] VITALS: BP 117/69
[2020-04-17] MEDS: LITHIUM CARBONATE 450 MG ER TABLET PO SCH ×2 (08:08→16:56)
[2020-04-17] MEDS: BACITRACIN 28 GM OINTMENT TP SCH ×2 (08:09→16:56)
[2020-04-17 08:28] VITALS: BP 121/69
[2020-04-17 16:00] VITALS: BP 100/72
[2020-04-17] MEDS: HALOPERIDOL 5 MG TABLET PO SCH (21:22)
[2020-04-18 04:39] VITALS: BP 101/64
[2020-04-18 08:16] VITALS: BP 118/69
[2020-04-18] MEDS: BACITRACIN 28 GM OINTMENT TP SCH ×2 (09:03→17:12)
[2020-04-18] MEDS: LITHIUM CARBONATE 450 MG ER TABLET PO SCH ×2 (09:03→17:12)
[2020-04-18] MEDS: LORazepam 2 MG TABLET PO PRN (10:13)
[2020-04-18 16:23] VITALS: BP 102/64
[2020-04-18] MEDS: HALOPERIDOL 5 MG TABLET PO SCH (21:48)
[2020-04-19 01:17] VITALS: BP 110/74
[2020-04-19 08:32] VITALS: BP 112/69
[2020-04-19] MEDS: LITHIUM CARBONATE 450 MG ER TABLET PO SCH ×2 (08:57→16:24)
[2020-04-19] MEDS: BACITRACIN 28 GM OINTMENT TP SCH ×2 (08:57→17:44)
[2020-04-19] MEDS: LORazepam 2 MG TABLET PO PRN ×2 (09:21→16:24)
[2020-04-19] MEDS: HALOPERIDOL 5 MG TABLET PO PRN (16:25)
[2020-04-19 16:34] VITALS: BP 100/69
[2020-04-19] MEDS: HALOPERIDOL 5 MG TABLET PO SCH (20:33)
[2020-04-19] MEDS: ZOLPIDEM TARTRATE 10 MG TABLET PO PRN (20:33)
[2020-04-20 02:57] VITALS: BP 101/72
[2020-04-20] MEDS: LITHIUM CARBONATE 450 MG ER TABLET PO SCH ×2 (08:35→16:49)
[2020-04-20] MEDS: LORazepam 2 MG TABLET PO PRN ×2 (08:35→16:49)
[2020-04-20 08:46] VITALS: BP 104/66
[2020-04-20] MEDS: BACITRACIN 28 GM OINTMENT TP SCH ×2 (09:22→16:49)
[2020-04-20] MEDS: HALOPERIDOL 5 MG TABLET PO PRN (11:54)
[2020-04-20 16:20] VITALS: BP 108/71
[2020-04-20] MEDS: HALOPERIDOL 5 MG TABLET PO SCH (20:47)
[2020-04-20] MEDS: ZOLPIDEM TARTRATE 10 MG TABLET PO PRN (20:47)
[2020-04-21 02:10] VITALS: BP 110/77
[2020-04-21] MEDS: LORazepam 2 MG TABLET PO PRN (08:14)
[2020-04-21] MEDS: LITHIUM CARBONATE 450 MG ER TABLET PO SCH ×2 (08:14→17:19)
[2020-04-21 08:18] VITALS: BP 124/68
[2020-04-21] MEDS: BACITRACIN 28 GM OINTMENT TP SCH ×2 (10:30→17:00)
[2020-04-21 16:29] VITALS: BP 112/72
[2020-04-21] MEDS: HALOPERIDOL 5 MG TABLET PO SCH (21:10)
[2020-04-21] MEDS: ZOLPIDEM TARTRATE 10 MG TABLET PO PRN (21:10)
[2020-04-22 02:25] VITALS: BP 105/60
[2020-04-22] MEDS: LITHIUM CARBONATE 450 MG ER TABLET PO SCH ×2 (08:09→16:43)
[2020-04-22] MEDS: BACITRACIN 28 GM OINTMENT TP SCH ×2 (08:09→17:34)
[2020-04-22 08:32] VITALS: BP 103/53
[2020-04-22 10:15] VITALS: BP 112/72
[2020-04-22] MEDS: LORazepam 2 MG TABLET PO PRN ×2 (10:20→20:20)
[2020-04-22 16:22] VITALS: BP 108/61
[2020-04-22] MEDS: HALOPERIDOL 5 MG TABLET PO PRN (16:43)
[2020-04-22] MEDS: HALOPERIDOL 5 MG TABLET PO SCH (20:20)
[2020-04-22] MEDS: ZOLPIDEM TARTRATE 10 MG TABLET PO PRN (22:11)
[2020-04-23 06:04] VITALS: BP 112/55
[2020-04-23 08:32] VITALS: BP 110/70
[2020-04-23 09:00] LABS: CHOL/HDL RATIO 4.9 (3.9-5.7)
[2020-04-23] MEDS: LITHIUM CARBONATE 450 MG ER TABLET PO SCH ×2 (09:10→16:39)
[2020-04-23] MEDS: LORazepam 2 MG TABLET PO PRN ×2 (09:10→16:39)
[2020-04-23] MEDS: HALOPERIDOL 5 MG TABLET PO PRN ×2 (09:11→16:38)
[2020-04-23 16:20] VITALS: BP 121/80
[2020-04-23] MEDS: ZOLPIDEM TARTRATE 10 MG TABLET PO PRN (20:35)
[2020-04-23] MEDS: HALOPERIDOL 5 MG TABLET PO SCH (20:35)
[2020-04-23] MEDS: ATORVASTATIN CALCIUM 40 MG TABLET PO SCH (20:35)
[2020-04-24 04:37] VITALS: BP 102/70
[2020-04-24 08:34] VITALS: BP 96/59
[2020-04-24] MEDS: LITHIUM CARBONATE 450 MG ER TABLET PO SCH ×2 (08:56→17:50)
[2020-04-24] MEDS: ATORVASTATIN CALCIUM 40 MG TABLET PO SCH (08:56)
[2020-04-24 10:15] VITALS: BP 108/70
[2020-04-24] MEDS: LORazepam 2 MG TABLET PO PRN (10:20)
[2020-04-24] MEDS ORDERED: LORazepam 2 MG/ML VIAL ONE (13:04)
[2020-04-24] MEDS ORDERED: HALOPERIDOL LACTATE 5 MG/ML VIAL ONE (13:05)
[2020-04-24] MEDS ORDERED: LORazepam 2 MG/ML VIAL IM ONE (13:15)
[2020-04-24] MEDS ORDERED: HALOPERIDOL LACTATE 5 MG/ML VIAL IM ONE (13:15)
[2020-04-24 17:13] VITALS: BP 99/60
[2020-04-24] MEDS: HALOPERIDOL 5 MG TABLET PO SCH (20:28)
[2020-04-25 02:36] VITALS: BP 126/64
[2020-04-25 08:48] VITALS: BP 115/59
[2020-04-25] MEDS: LORazepam 2 MG TABLET PO PRN (09:21)
[2020-04-25] MEDS: HALOPERIDOL 5 MG TABLET PO PRN (09:21)
[2020-04-25] MEDS: ATORVASTATIN CALCIUM 40 MG TABLET PO SCH (09:21)
[2020-04-25] MEDS: LITHIUM CARBONATE 450 MG ER TABLET PO SCH ×2 (09:21→16:47)
[2020-04-25 16:32] VITALS: BP 101/73
[2020-04-25] MEDS: ZOLPIDEM TARTRATE 10 MG TABLET PO PRN (20:33)
[2020-04-25] MEDS: HALOPERIDOL 5 MG TABLET PO SCH (20:33)
[2020-04-26 02:18] VITALS: BP 120/86
[2020-04-26] MEDS: LITHIUM CARBONATE 450 MG ER TABLET PO SCH ×2 (09:20→16:09)
[2020-04-26] MEDS: ATORVASTATIN CALCIUM 40 MG TABLET PO SCH (09:20)
[2020-04-26 10:05] VITALS: BP 105/55
[2020-04-26 16:00] VITALS: BP 120/66
[2020-04-26] MEDS: LORazepam 2 MG TABLET PO PRN (16:09)
[2020-04-26] MEDS: HALOPERIDOL 5 MG TABLET PO SCH (20:09)
[2020-04-27 01:08] VITALS: BP 113/73
[2020-04-27 08:13] VITALS: BP 110/69
[2020-04-27] MEDS: LITHIUM CARBONATE 450 MG ER TABLET PO SCH ×2 (08:52→15:57)
[2020-04-27] MEDS: ATORVASTATIN CALCIUM 40 MG TABLET PO SCH (08:52)
[2020-04-27] MEDS: LORazepam 2 MG TABLET PO PRN ×2 (09:24→15:57)
[2020-04-27 16:49] VITALS: BP 135/68
[2020-04-27] MEDS: HALOPERIDOL 5 MG TABLET PO SCH (20:39)
[2020-04-28 05:44] VITALS: BP 141/85
[2020-04-28 08:22] VITALS: BP 100/59
[2020-04-28] MEDS: LITHIUM CARBONATE 450 MG ER TABLET PO SCH ×2 (08:29→16:32)
[2020-04-28] MEDS: ATORVASTATIN CALCIUM 40 MG TABLET PO SCH (08:29)
[2020-04-28 13:25] VITALS: BP 108/74
[2020-04-28] MEDS: LORazepam 2 MG TABLET PO PRN ×2 (13:28→19:50)
[2020-04-28 16:39] VITALS: BP 107/71
[2020-04-28] MEDS: HALOPERIDOL 5 MG TABLET PO SCH (19:57)
[2020-04-29 08:29] VITALS: BP 112/69
[2020-04-29] MEDS: LITHIUM CARBONATE 450 MG ER TABLET PO SCH ×2 (08:40→16:27)
[2020-04-29] MEDS: ATORVASTATIN CALCIUM 40 MG TABLET PO SCH (08:40)
[2020-04-29] MEDS: LORazepam 2 MG TABLET PO PRN (08:40)
[2020-04-29 16:21] VITALS: BP 106/60
[2020-04-29] MEDS: HALOPERIDOL 5 MG TABLET PO SCH (21:30)
[2020-04-29] MEDS: ZOLPIDEM TARTRATE 10 MG TABLET PO PRN (23:16)
[2020-04-30] MEDS: ATORVASTATIN CALCIUM 40 MG TABLET PO SCH (09:03)
[2020-04-30] MEDS: LORazepam 2 MG TABLET PO PRN ×2 (09:03→20:44)
[2020-04-30] MEDS: LITHIUM CARBONATE 450 MG ER TABLET PO SCH ×2 (09:04→16:10)
[2020-04-30 19:35] VITALS: BP 102/60
[2020-04-30] MEDS: HALOPERIDOL 5 MG TABLET PO SCH (20:44)
[2020-05-01 04:15] VITALS: BP 104/62
[2020-05-01 08:31] VITALS: BP 103/58
[2020-05-01] MEDS: ATORVASTATIN CALCIUM 40 MG TABLET PO SCH (08:51)
[2020-05-01] MEDS: LITHIUM CARBONATE 450 MG ER TABLET PO SCH ×2 (08:51→16:08)
[2020-05-01 16:00] VITALS: BP 111/69
[2020-05-01] MEDS: ZOLPIDEM TARTRATE 10 MG TABLET PO PRN (20:23)
[2020-05-01] MEDS: HALOPERIDOL 5 MG TABLET PO SCH (20:23)
[2020-05-02 01:47] VITALS: BP 102/76
[2020-05-02 08:33] VITALS: BP 100/60
[2020-05-02] MEDS: ATORVASTATIN CALCIUM 40 MG TABLET PO SCH (08:56)
[2020-05-02] MEDS: LITHIUM CARBONATE 450 MG ER TABLET PO SCH ×2 (08:56→16:16)
[2020-05-02 12:05] VITALS: BP 114/74
[2020-05-02] MEDS: LORazepam 2 MG TABLET PO PRN (12:08)
[2020-05-02 17:07] VITALS: BP 118/76
[2020-05-02] MEDS: HALOPERIDOL 5 MG TABLET PO SCH (20:49)
[2020-05-03] VITALS: BP 112/71
[2020-05-03 08:27] VITALS: BP 100/50
[2020-05-03] MEDS: ATORVASTATIN CALCIUM 40 MG TABLET PO SCH (08:43)
[2020-05-03] MEDS: LITHIUM CARBONATE 450 MG ER TABLET PO SCH ×2 (08:43→16:09)
[2020-05-03] MEDS: LORazepam 2 MG TABLET PO PRN (16:09)
[2020-05-03 16:49] VITALS: BP 116/75
[2020-05-03] MEDS: HALOPERIDOL 5 MG TABLET PO SCH (20:09)
[2020-05-04 03:01] VITALS: BP 119/61
[2020-05-04] MEDS: ATORVASTATIN CALCIUM 40 MG TABLET PO SCH (08:12)
[2020-05-04] MEDS: LITHIUM CARBONATE 450 MG ER TABLET PO SCH ×2 (08:12→16:15)
[2020-05-04 08:29] VITALS: BP 108/64
[2020-05-04] MEDS: LORazepam 2 MG TABLET PO PRN (16:15)
[2020-05-04 16:52] VITALS: BP 104/57
[2020-05-04] MEDS: HALOPERIDOL 5 MG TABLET PO SCH (20:10)
[2020-05-05 05:40] VITALS: BP 106/62
[2020-05-05 08:22] VITALS: BP 100/60
[2020-05-05] MEDS: ATORVASTATIN CALCIUM 40 MG TABLET PO SCH (09:33)
[2020-05-05] MEDS: LITHIUM CARBONATE 450 MG ER TABLET PO SCH ×2 (09:33→16:24)
[2020-05-05] MEDS: LORazepam 2 MG TABLET PO PRN (16:24)
[2020-05-05 17:02] VITALS: BP 108/69
[2020-05-05] MEDS: HALOPERIDOL 5 MG TABLET PO SCH (20:07)
[2020-05-06] MEDS: ATORVASTATIN CALCIUM 40 MG TABLET PO SCH (08:25)
[2020-05-06] MEDS: LITHIUM CARBONATE 450 MG ER TABLET PO SCH ×2 (08:25→15:58)
[2020-05-06 08:30] VITALS: BP 98/61
[2020-05-06] MEDS: LORazepam 2 MG TABLET PO PRN (15:58)
[2020-05-06 16:11] VITALS: BP 108/67
[2020-05-06] MEDS: HALOPERIDOL 5 MG TABLET PO SCH (20:18)
[2020-05-06] MEDS: ZOLPIDEM TARTRATE 10 MG TABLET PO PRN (21:54)
[2020-05-07 02:34] VITALS: BP 103/62
[2020-05-07 08:12] VITALS: BP 100/58
[2020-05-07] MEDS: ATORVASTATIN CALCIUM 40 MG TABLET PO SCH (08:15)
[2020-05-07] MEDS: LITHIUM CARBONATE 450 MG ER TABLET PO SCH ×2 (08:15→16:00)
[2020-05-07 16:23] VITALS: BP 104/62
[2020-05-07] MEDS: LORazepam 2 MG TABLET PO PRN (19:44)
[2020-05-07] MEDS: HALOPERIDOL 5 MG TABLET PO SCH (20:01)
[2020-05-08 04:53] VITALS: BP 100/66
[2020-05-08] MEDS: ATORVASTATIN CALCIUM 40 MG TABLET PO SCH (08:10)
[2020-05-08] MEDS: LITHIUM CARBONATE 450 MG ER TABLET PO SCH ×2 (08:10→16:20)
[2020-05-08 08:27] VITALS: BP 111/68
[2020-05-08 17:00] VITALS: BP 102/60
[2020-05-08] MEDS: HALOPERIDOL 5 MG TABLET PO SCH (19:56)
[2020-05-08] MEDS: ZOLPIDEM TARTRATE 10 MG TABLET PO PRN (21:25)
[2020-05-09 05:05] VITALS: BP 104/76
[2020-05-09 08:20] VITALS: BP 105/54
[2020-05-09] MEDS: ATORVASTATIN CALCIUM 40 MG TABLET PO SCH (09:10)
[2020-05-09] MEDS: LITHIUM CARBONATE 450 MG ER TABLET PO SCH ×2 (09:10→16:46)
[2020-05-09 16:18] VITALS: BP 132/76
[2020-05-09] MEDS: HALOPERIDOL 5 MG TABLET PO SCH (21:14)
[2020-05-10 03:41] VITALS: BP 108/64
[2020-05-10 08:37] VITALS: BP 114/66
[2020-05-10] MEDS: ATORVASTATIN CALCIUM 40 MG TABLET PO SCH (08:43)
[2020-05-10] MEDS: LITHIUM CARBONATE 450 MG ER TABLET PO SCH ×2 (08:43→16:02)
[2020-05-10 16:25] VITALS: BP 103/66
[2020-05-10] MEDS: HALOPERIDOL 5 MG TABLET PO SCH (20:01)
[2020-05-11 04:35] VITALS: BP 102/62
[2020-05-11] MEDS: ATORVASTATIN CALCIUM 40 MG TABLET PO SCH (08:11)
[2020-05-11] MEDS: LITHIUM CARBONATE 450 MG ER TABLET PO SCH ×2 (08:11→16:42)
[2020-05-11 08:29] VITALS: BP 100/57
[2020-05-11 16:20] VITALS: BP 110/69
[2020-05-11] MEDS: HALOPERIDOL 5 MG TABLET PO SCH (20:16)
[2020-05-12 03:18] VITALS: BP 105/73
[2020-05-12] MEDS: ATORVASTATIN CALCIUM 40 MG TABLET PO SCH (08:14)
[2020-05-12] MEDS: LITHIUM CARBONATE 450 MG ER TABLET PO SCH ×2 (08:14→16:27)
[2020-05-12 08:30] VITALS: BP 113/68
[2020-05-12 16:12] VITALS: BP 108/70
[2020-05-12] MEDS: HALOPERIDOL 5 MG TABLET PO SCH (20:29)
[2020-05-13 05:11] VITALS: BP 100/73
[2020-05-13] MEDS: ATORVASTATIN CALCIUM 40 MG TABLET PO SCH (08:26)
[2020-05-13] MEDS: LITHIUM CARBONATE 450 MG ER TABLET PO SCH ×2 (08:26→17:00)
[2020-05-13 08:32] VITALS: BP 100/60
[2020-05-13 16:18] VITALS: BP 114/70
[2020-05-13] MEDS: HALOPERIDOL 5 MG TABLET PO SCH (20:15)
[2020-05-14 00:05] VITALS: BP 120/70
[2020-05-14] MEDS: LITHIUM CARBONATE 450 MG ER TABLET PO SCH ×2 (08:11→16:25)
[2020-05-14] MEDS: ATORVASTATIN CALCIUM 40 MG TABLET PO SCH (08:11)
[2020-05-14 08:20] VITALS: BP 104/62
[2020-05-14] MEDS: HALOPERIDOL 5 MG TABLET PO SCH (20:44)
[2020-05-15 04:14] VITALS: BP 108/64
[2020-05-15 08:23] VITALS: BP 109/68
[2020-05-15] MEDS: ATORVASTATIN CALCIUM 40 MG TABLET PO SCH (09:29)
[2020-05-15] MEDS: LITHIUM CARBONATE 450 MG ER TABLET PO SCH ×2 (09:29→16:24)
[2020-05-15 16:15] VITALS: BP 102/59
[2020-05-15] MEDS: HALOPERIDOL 5 MG TABLET PO SCH (20:42)
[2020-05-16 06:08] VITALS: BP 104/65
[2020-05-16 08:21] VITALS: BP 100/57
[2020-05-16] MEDS: ATORVASTATIN CALCIUM 40 MG TABLET PO SCH (08:39)
[2020-05-16] MEDS: LITHIUM CARBONATE 450 MG ER TABLET PO SCH ×2 (08:39→17:34)
[2020-05-16 16:53] VITALS: BP 101/68
[2020-05-16] MEDS: HALOPERIDOL 5 MG TABLET PO SCH (20:20)
[2020-05-17 02:35] VITALS: BP 118/61
[2020-05-17 08:28] VITALS: BP 100/61
[2020-05-17] MEDS: ATORVASTATIN CALCIUM 40 MG TABLET PO SCH (08:37)
[2020-05-17] MEDS: LITHIUM CARBONATE 450 MG ER TABLET PO SCH ×2 (08:37→16:44)
[2020-05-17 16:21] VITALS: BP 100/60
[2020-05-17] MEDS: HALOPERIDOL 5 MG TABLET PO SCH (20:36)
[2020-05-18 02:11] VITALS: BP 102/64
[2020-05-18] MEDS: ATORVASTATIN CALCIUM 40 MG TABLET PO SCH (08:13)
[2020-05-18] MEDS: LITHIUM CARBONATE 450 MG ER TABLET PO SCH ×2 (08:13→16:53)
[2020-05-18 08:38] VITALS: BP 100/55
[2020-05-18 16:57] VITALS: BP 100/59
[2020-05-18] MEDS: HALOPERIDOL 5 MG TABLET PO SCH (20:27)
[2020-05-19 02:49] VITALS: BP 102/65
[2020-05-19 08:24] VITALS: BP 111/60
[2020-05-19] MEDS: ATORVASTATIN CALCIUM 40 MG TABLET PO SCH (08:31)
[2020-05-19] MEDS: LITHIUM CARBONATE 450 MG ER TABLET PO SCH ×2 (08:31→16:33)
[2020-05-19 16:25] VITALS: BP 113/62
[2020-05-19] MEDS: HALOPERIDOL 5 MG TABLET PO SCH (20:37)
[2020-05-20 01:00] VITALS: BP 115/74
[2020-05-20 08:18] VITALS: BP 100/50
[2020-05-20] MEDS: ATORVASTATIN CALCIUM 40 MG TABLET PO SCH (08:27)
[2020-05-20] MEDS: LITHIUM CARBONATE 450 MG ER TABLET PO SCH ×2 (08:27→16:21)
[2020-05-20 16:20] VITALS: BP 104/60
[2020-05-20] MEDS: HALOPERIDOL 5 MG TABLET PO SCH (20:43)
[2020-05-21] VITALS: BP 108/70
[2020-05-21] MEDS: LITHIUM CARBONATE 450 MG ER TABLET PO SCH ×2 (08:13→16:27)
[2020-05-21] MEDS: ATORVASTATIN CALCIUM 40 MG TABLET PO SCH (08:13)
[2020-05-21 08:40] VITALS: BP 109/62
[2020-05-21 17:04] VITALS: BP 106/67
[2020-05-21] MEDS: HALOPERIDOL 5 MG TABLET PO SCH (20:26)
[2020-05-22] VITALS: BP 106/71
[2020-05-22] MEDS: LITHIUM CARBONATE 450 MG ER TABLET PO SCH ×2 (08:05→16:26)
[2020-05-22] MEDS: ATORVASTATIN CALCIUM 40 MG TABLET PO SCH (08:05)
[2020-05-22 08:41] VITALS: BP 101/54
[2020-05-22 16:30] VITALS: BP 102/60
[2020-05-22] MEDS: HALOPERIDOL 5 MG TABLET PO SCH (20:29)
[2020-05-23 00:03] VITALS: BP 110/68
[2020-05-23] MEDS: ATORVASTATIN CALCIUM 40 MG TABLET PO SCH (09:06)
[2020-05-23] MEDS: LITHIUM CARBONATE 450 MG ER TABLET PO SCH ×2 (09:06→16:44)
[2020-05-23] MEDS: HALOPERIDOL 5 MG TABLET PO SCH (20:28)
[2020-05-23 21:06] VITALS: BP 128/68
[2020-05-24 00:35] VITALS: BP 100/54
[2020-05-24] MEDS: LITHIUM CARBONATE 450 MG ER TABLET PO SCH ×2 (09:31→16:30)
[2020-05-24] MEDS: ATORVASTATIN CALCIUM 40 MG TABLET PO SCH (09:31)
[2020-05-24 16:30] VITALS: BP 100/57
[2020-05-24] MEDS: HALOPERIDOL 5 MG TABLET PO SCH (20:39)
[2020-05-25 01:05] VITALS: BP 110/74
[2020-05-25 08:34] VITALS: BP 106/59
[2020-05-25] MEDS: LITHIUM CARBONATE 450 MG ER TABLET PO SCH ×2 (08:38→16:52)
[2020-05-25] MEDS: ATORVASTATIN CALCIUM 40 MG TABLET PO SCH (08:38)
[2020-05-25 17:24] VITALS: BP 100/51
[2020-05-25] MEDS: HALOPERIDOL 5 MG TABLET PO SCH (20:45)
[2020-05-26 02:33] VITALS: BP 102/60
[2020-05-26] MEDS: ATORVASTATIN CALCIUM 40 MG TABLET PO SCH (08:09)
[2020-05-26] MEDS: LITHIUM CARBONATE 450 MG ER TABLET PO SCH ×2 (08:09→16:36)
[2020-05-26 08:26] VITALS: BP 106/61
[2020-05-26] MEDS: HALOPERIDOL 5 MG TABLET PO SCH (20:25)
[2020-05-27 04:19] VITALS: BP 100/74
[2020-05-27] MEDS: LITHIUM CARBONATE 450 MG ER TABLET PO SCH ×2 (08:12→16:17)
[2020-05-27] MEDS: ATORVASTATIN CALCIUM 40 MG TABLET PO SCH (08:13)
[2020-05-27 08:35] VITALS: BP 124/55
[2020-05-27 16:21] VITALS: BP 101/62
[2020-05-27] MEDS: HALOPERIDOL 5 MG TABLET PO SCH (20:48)
[2020-05-28] MEDS: HALOPERIDOL 5 MG TABLET PO PRN (01:51)
[2020-05-28 04:56] VITALS: BP 114/78
[2020-05-28] MEDS: LITHIUM CARBONATE 450 MG ER TABLET PO SCH ×2 (08:16→19:56)
[2020-05-28] MEDS: ATORVASTATIN CALCIUM 40 MG TABLET PO SCH (08:16)
[2020-05-28 08:29] VITALS: BP 108/61
[2020-05-28] MEDS: HALOPERIDOL 5 MG TABLET PO SCH (21:28)
[2020-05-29 00:44] VITALS: BP 105/63
[2020-05-29 08:30] VITALS: BP 100/63
[2020-05-29] MEDS: ATORVASTATIN CALCIUM 40 MG TABLET PO SCH (08:55)
[2020-05-29] MEDS: LITHIUM CARBONATE 450 MG ER TABLET PO SCH ×2 (08:55→17:19)
[2020-05-29 16:33] VITALS: BP 103/66
[2020-05-29] MEDS: HALOPERIDOL 5 MG TABLET PO SCH (21:10)
[2020-05-30 00:17] VITALS: BP 110/68
[2020-05-30] MEDS: ATORVASTATIN CALCIUM 40 MG TABLET PO SCH (08:28)
[2020-05-30] MEDS: LITHIUM CARBONATE 450 MG ER TABLET PO SCH ×2 (08:28→16:12)
[2020-05-30 08:33] VITALS: BP 89/56
[2020-05-30] MEDS: HALOPERIDOL 5 MG TABLET PO SCH (21:20)
[2020-05-31 00:21] VITALS: BP 106/72
[2020-05-31] MEDS: LITHIUM CARBONATE 450 MG ER TABLET PO SCH ×2 (08:03→16:44)
[2020-05-31] MEDS: ATORVASTATIN CALCIUM 40 MG TABLET PO SCH (08:03)
[2020-05-31 08:41] VITALS: BP 100/58
[2020-05-31 16:30] VITALS: BP 100/76
[2020-05-31] MEDS: HALOPERIDOL 5 MG TABLET PO SCH (21:01)
[2020-06-01] MEDS: HALOPERIDOL 5 MG TABLET PO PRN (01:13)
[2020-06-01 02:23] VITALS: BP 110/77
[2020-06-01] MEDS: ATORVASTATIN CALCIUM 40 MG TABLET PO SCH (08:00)
[2020-06-01] MEDS: LITHIUM CARBONATE 450 MG ER TABLET PO SCH ×2 (08:00→17:11)
[2020-06-01 08:30] VITALS: BP 100/58
[2020-06-01 16:42] VITALS: BP 100/57
[2020-06-01] MEDS: HALOPERIDOL 5 MG TABLET PO SCH (21:04)
[2020-06-02 02:16] VITALS: BP 101/68
[2020-06-02] MEDS: ATORVASTATIN CALCIUM 40 MG TABLET PO SCH (08:09)
[2020-06-02] MEDS: LITHIUM CARBONATE 450 MG ER TABLET PO SCH ×2 (08:09→16:39)
[2020-06-02 08:11] VITALS: BP 123/78
[2020-06-02] MEDS: HALOPERIDOL 5 MG TABLET PO SCH (20:36)
[2020-06-03 01:47] VITALS: BP 120/86
[2020-06-03] MEDS: HALOPERIDOL 5 MG TABLET PO PRN (02:55)
[2020-06-03] MEDS: LITHIUM CARBONATE 450 MG ER TABLET PO SCH ×2 (08:11→18:37)
[2020-06-03] MEDS: ATORVASTATIN CALCIUM 40 MG TABLET PO SCH (08:11)
[2020-06-03 08:28] VITALS: BP 114/71
[2020-06-03 16:44] VITALS: BP 108/59
[2020-06-03] MEDS: HALOPERIDOL 5 MG TABLET PO SCH (20:46)
[2020-06-04] VITALS: BP 103/61
[2020-06-04] MEDS: ATORVASTATIN CALCIUM 40 MG TABLET PO SCH (08:17)
[2020-06-04] MEDS: LITHIUM CARBONATE 450 MG ER TABLET PO SCH ×2 (08:17→19:33)
[2020-06-04 08:57] VITALS: BP 105/58
[2020-06-04] MEDS: HALOPERIDOL 5 MG TABLET PO SCH (20:46)
[2020-06-05 01:41] VITALS: BP 108/71
[2020-06-05 08:32] VITALS: BP 103/62
[2020-06-05] MEDS: ATORVASTATIN CALCIUM 40 MG TABLET PO SCH (10:13)
[2020-06-05] MEDS: LITHIUM CARBONATE 450 MG ER TABLET PO SCH ×2 (10:13→18:04)
[2020-06-05 16:21] VITALS: BP 102/64
[2020-06-05] MEDS: HALOPERIDOL 5 MG TABLET PO SCH (20:34)
[2020-06-06 01:00] VITALS: BP 116/69
[2020-06-06 08:11] VITALS: BP 102/66
[2020-06-06] MEDS: ATORVASTATIN CALCIUM 40 MG TABLET PO SCH (08:45)
[2020-06-06] MEDS: LITHIUM CARBONATE 450 MG ER TABLET PO SCH ×2 (08:45→17:09)
[2020-06-06] MEDS: HALOPERIDOL 5 MG TABLET PO PRN (17:09)
[2020-06-06] MEDS: HALOPERIDOL 5 MG TABLET PO SCH (20:04)
[2020-06-07 04:01] VITALS: BP 110/76
[2020-06-07 08:22] VITALS: BP 122/68
[2020-06-07] MEDS: LITHIUM CARBONATE 450 MG ER TABLET PO SCH ×2 (09:44→16:59)
[2020-06-07] MEDS: ATORVASTATIN CALCIUM 40 MG TABLET PO SCH (09:44)
[2020-06-07] MEDS: HALOPERIDOL 5 MG TABLET PO SCH (20:31)
[2020-06-08 04:22] VITALS: BP 120/65
[2020-06-08] MEDS: ATORVASTATIN CALCIUM 40 MG TABLET PO SCH (08:19)
[2020-06-08] MEDS: LITHIUM CARBONATE 450 MG ER TABLET PO SCH ×2 (08:19→16:16)
[2020-06-08 08:21] VITALS: BP 111/71
[2020-06-08] MEDS: HALOPERIDOL 5 MG TABLET PO SCH (20:30)
[2020-06-09 01:26] VITALS: BP 104/76
[2020-06-09] MEDS: LITHIUM CARBONATE 450 MG ER TABLET PO SCH ×2 (08:06→16:41)
[2020-06-09] MEDS: ATORVASTATIN CALCIUM 40 MG TABLET PO SCH (08:06)
[2020-06-09 08:25] VITALS: BP 133/77
[2020-06-09] MEDS: HALOPERIDOL 5 MG TABLET PO SCH (20:36)
[2020-06-10 04:23] VITALS: BP 101/77
[2020-06-10] MEDS: ATORVASTATIN CALCIUM 40 MG TABLET PO SCH (08:36)
[2020-06-10] MEDS: LITHIUM CARBONATE 450 MG ER TABLET PO SCH ×2 (08:36→17:08)
[2020-06-10 08:40] VITALS: BP 106/84
[2020-06-10 16:53] VITALS: BP 100/64
[2020-06-10] MEDS: HALOPERIDOL 5 MG TABLET PO SCH (21:10)
[2020-06-11 01:33] VITALS: BP 104/67
[2020-06-11] MEDS: ATORVASTATIN CALCIUM 40 MG TABLET PO SCH (08:30)
[2020-06-11] MEDS: LITHIUM CARBONATE 450 MG ER TABLET PO SCH ×2 (08:30→16:21)
[2020-06-11 08:43] VITALS: BP 100/56
[2020-06-11 16:55] VITALS: BP 101/61
[2020-06-11] MEDS: HALOPERIDOL 5 MG TABLET PO SCH (20:41)
[2020-06-12 03:00] VITALS: BP 108/70
[2020-06-12] MEDS: LITHIUM CARBONATE 450 MG ER TABLET PO SCH ×2 (08:15→16:41)
[2020-06-12 08:16] VITALS: BP 102/64
[2020-06-12] MEDS: ATORVASTATIN CALCIUM 40 MG TABLET PO SCH (08:16)
[2020-06-12 16:05] VITALS: BP 111/62
[2020-06-12] MEDS: HALOPERIDOL 5 MG TABLET PO SCH (20:15)
[2020-06-13 04:51] VITALS: BP 109/70
[2020-06-13] MEDS: LITHIUM CARBONATE 450 MG ER TABLET PO SCH ×2 (08:04→16:45)
[2020-06-13] MEDS: ATORVASTATIN CALCIUM 40 MG TABLET PO SCH (08:04)
[2020-06-13 08:18] VITALS: BP 108/66
[2020-06-13 16:33] VITALS: BP 118/71
[2020-06-13] MEDS: HALOPERIDOL 5 MG TABLET PO PRN ×2 (16:45→21:03)
[2020-06-13] MEDS: HALOPERIDOL 5 MG TABLET PO SCH (21:05)
[2020-06-14 03:30] VITALS: BP 122/84
[2020-06-14] MEDS: LITHIUM CARBONATE 450 MG ER TABLET PO SCH ×2 (08:12→16:34)
[2020-06-14] MEDS: ATORVASTATIN CALCIUM 40 MG TABLET PO SCH (08:12)
[2020-06-14 08:23] VITALS: BP 97/63
[2020-06-14 16:28] VITALS: BP 120/76
[2020-06-14] MEDS: HALOPERIDOL 5 MG TABLET PO SCH (20:50)
[2020-06-15 00:56] VITALS: BP 125/78
[2020-06-15] MEDS: LITHIUM CARBONATE 450 MG ER TABLET PO SCH ×2 (08:10→17:17)
[2020-06-15] MEDS: ATORVASTATIN CALCIUM 40 MG TABLET PO SCH (08:10)
[2020-06-15 08:24] VITALS: BP 100/59
[2020-06-15 16:12] VITALS: BP 136/75
[2020-06-15] MEDS: HALOPERIDOL 5 MG TABLET PO SCH (21:03)
[2020-06-16 00:49] VITALS: BP 128/78
[2020-06-16] MEDS: LITHIUM CARBONATE 450 MG ER TABLET PO SCH ×2 (08:23→17:34)
[2020-06-16] MEDS: ATORVASTATIN CALCIUM 40 MG TABLET PO SCH (08:23)
[2020-06-16 09:35] VITALS: BP 106/50
[2020-06-16 16:05] VITALS: BP 114/76
[2020-06-16] MEDS: HALOPERIDOL 5 MG TABLET PO SCH (20:17)
[2020-06-17 01:37] VITALS: BP 124/76
[2020-06-17 08:14] VITALS: BP 100/53
[2020-06-17] MEDS: LITHIUM CARBONATE 450 MG ER TABLET PO SCH ×2 (08:19→17:10)
[2020-06-17] MEDS: ATORVASTATIN CALCIUM 40 MG TABLET PO SCH (08:19)
[2020-06-17 16:08] VITALS: BP 106/56
[2020-06-17 16:09] VITALS: BP 105/71
[2020-06-17] MEDS: HALOPERIDOL 5 MG TABLET PO SCH (20:20)
[2020-06-18 00:48] VITALS: BP 105/73
[2020-06-18] MEDS: ATORVASTATIN CALCIUM 40 MG TABLET PO SCH (08:14)
[2020-06-18] MEDS: LITHIUM CARBONATE 450 MG ER TABLET PO SCH ×2 (08:14→15:51)
[2020-06-18 08:23] VITALS: BP 123/60
[2020-06-18 16:10] VITALS: BP 131/72
[2020-06-18] MEDS: HALOPERIDOL 5 MG TABLET PO SCH (19:44)
[2020-06-19 05:42] VITALS: BP 125/71
[2020-06-19] MEDS: ATORVASTATIN CALCIUM 40 MG TABLET PO SCH (08:13)
[2020-06-19] MEDS: LITHIUM CARBONATE 450 MG ER TABLET PO SCH ×2 (08:13→16:35)
[2020-06-19 08:29] VITALS: BP 103/56
[2020-06-19 16:08] VITALS: BP 111/72
[2020-06-19] MEDS: HALOPERIDOL 5 MG TABLET PO SCH (20:18)
[2020-06-20 01:27] VITALS: BP 101/72
[2020-06-20] MEDS: LITHIUM CARBONATE 450 MG ER TABLET PO SCH ×2 (08:24→16:51)
[2020-06-20] MEDS: ATORVASTATIN CALCIUM 40 MG TABLET PO SCH (08:24)
[2020-06-20 16:25] VITALS: BP 119/79
[2020-06-20] MEDS: HALOPERIDOL 5 MG TABLET PO SCH (20:24)
[2020-06-21 05:28] VITALS: BP 109/51
[2020-06-21] MEDS: ATORVASTATIN CALCIUM 40 MG TABLET PO SCH (08:43)
[2020-06-21] MEDS: LITHIUM CARBONATE 450 MG ER TABLET PO SCH ×2 (08:43→16:13)
[2020-06-21 08:45] VITALS: BP 102/57
[2020-06-21 16:53] VITALS: BP 100/56
[2020-06-21] MEDS: HALOPERIDOL 5 MG TABLET PO SCH (20:25)
[2020-06-22 04:48] VITALS: BP 101/68
[2020-06-22] MEDS: ATORVASTATIN CALCIUM 40 MG TABLET PO SCH (08:02)
[2020-06-22] MEDS: LITHIUM CARBONATE 450 MG ER TABLET PO SCH ×2 (08:03→16:55)
[2020-06-22 08:25] VITALS: BP 109/54
[2020-06-22 16:14] VITALS: BP 104/59
[2020-06-22] MEDS: HALOPERIDOL 5 MG TABLET PO SCH (20:17)
[2020-06-23 00:38] VITALS: BP 102/73
[2020-06-23] MEDS: ATORVASTATIN CALCIUM 40 MG TABLET PO SCH (08:06)
[2020-06-23] MEDS: LITHIUM CARBONATE 450 MG ER TABLET PO SCH ×2 (08:06→16:29)
[2020-06-23 16:12] VITALS: BP 128/76
[2020-06-23] MEDS: HALOPERIDOL 5 MG TABLET PO SCH (20:13)
[2020-06-24 00:55] VITALS: BP 120/83
[2020-06-24] MEDS: ATORVASTATIN CALCIUM 40 MG TABLET PO SCH (08:05)
[2020-06-24] MEDS: LITHIUM CARBONATE 450 MG ER TABLET PO SCH ×2 (08:05→16:55)
[2020-06-24 08:35] VITALS: BP 100/58
[2020-06-24 16:26] VITALS: BP 106/68
[2020-06-24] MEDS: HALOPERIDOL 5 MG TABLET PO SCH (20:38)
[2020-06-25 01:51] VITALS: BP 101/74
[2020-06-25] MEDS: ATORVASTATIN CALCIUM 40 MG TABLET PO SCH (08:14)
[2020-06-25] MEDS: LITHIUM CARBONATE 450 MG ER TABLET PO SCH ×2 (08:14→16:04)
[2020-06-25 08:27] VITALS: BP 116/64
[2020-06-25 16:13] VITALS: BP 111/80
[2020-06-25] MEDS: HALOPERIDOL 5 MG TABLET PO SCH (19:51)
[2020-06-26 04:52] VITALS: BP 108/72
[2020-06-26] MEDS: ATORVASTATIN CALCIUM 40 MG TABLET PO SCH (08:21)
[2020-06-26] MEDS: LITHIUM CARBONATE 450 MG ER TABLET PO SCH ×2 (08:21→16:14)
[2020-06-26 08:34] VITALS: BP 104/55
[2020-06-26 16:20] VITALS: BP 100/65
[2020-06-26] MEDS: HALOPERIDOL 5 MG TABLET PO SCH (20:16)
[2020-06-27 00:38] VITALS: BP 101/75
[2020-06-27 08:46] VITALS: BP 100/59
[2020-06-27] MEDS: ATORVASTATIN CALCIUM 40 MG TABLET PO SCH (09:05)
[2020-06-27] MEDS: LITHIUM CARBONATE 450 MG ER TABLET PO SCH ×2 (09:05→16:39)
[2020-06-27 16:31] VITALS: BP 100/64
[2020-06-27] MEDS: HALOPERIDOL 5 MG TABLET PO SCH (20:25)
[2020-06-28 00:27] VITALS: BP 112/85
[2020-06-28 08:27] VITALS: BP 110/66
[2020-06-28] MEDS: LITHIUM CARBONATE 450 MG ER TABLET PO SCH ×2 (08:29→16:18)
[2020-06-28] MEDS: ATORVASTATIN CALCIUM 40 MG TABLET PO SCH (08:29)
[2020-06-28 16:29] VITALS: BP 120/60
[2020-06-28] MEDS: HALOPERIDOL 5 MG TABLET PO SCH (20:09)
[2020-06-29 01:05] VITALS: BP_SYST 102; BP_SYST 65; BP_DIAS 19; BP_DIAS 72
[2020-06-29] MEDS: ATORVASTATIN CALCIUM 40 MG TABLET PO SCH (08:08)
[2020-06-29] MEDS: LITHIUM CARBONATE 450 MG ER TABLET PO SCH ×2 (08:09→16:25)
[2020-06-29 08:27] VITALS: BP 109/66
[2020-06-29 16:19] VITALS: BP 107/68
[2020-06-29] MEDS: HALOPERIDOL 5 MG TABLET PO SCH (20:11)
[2020-06-30 04:21] VITALS: BP 110/70
[2020-06-30 08:20] VITALS: BP 103/54
[2020-06-30] MEDS: LITHIUM CARBONATE 450 MG ER TABLET PO SCH ×2 (08:29→16:22)
[2020-06-30] MEDS: ATORVASTATIN CALCIUM 40 MG TABLET PO SCH (08:29)
[2020-06-30 16:20] VITALS: BP 100/61
[2020-06-30] MEDS: HALOPERIDOL 5 MG TABLET PO SCH (20:22)
[2020-07-01 03:51] VITALS: BP 102/65
[2020-07-01 08:05] VITALS: BP 100/61
[2020-07-01] MEDS: LITHIUM CARBONATE 450 MG ER TABLET PO SCH ×2 (08:20→16:38)
[2020-07-01] MEDS: ATORVASTATIN CALCIUM 40 MG TABLET PO SCH (08:20)
[2020-07-01 16:12] VITALS: BP 105/63
[2020-07-01] MEDS: HALOPERIDOL 5 MG TABLET PO SCH (20:13)
[2020-07-02 04:42] VITALS: BP 103/62
[2020-07-02] MEDS: LITHIUM CARBONATE 450 MG ER TABLET PO SCH ×2 (08:05→16:11)
[2020-07-02] MEDS: ATORVASTATIN CALCIUM 40 MG TABLET PO SCH (08:05)
[2020-07-02 08:27] VITALS: BP 100/56
[2020-07-02 10:30] VITALS: BP 108/72
[2020-07-02 16:11] VITALS: BP 108/67
[2020-07-02] MEDS: HALOPERIDOL 5 MG TABLET PO SCH (19:40)
[2020-07-03 00:38] VITALS: BP 114/73
[2020-07-03] MEDS: ATORVASTATIN CALCIUM 40 MG TABLET PO SCH (08:22)
[2020-07-03] MEDS: LITHIUM CARBONATE 450 MG ER TABLET PO SCH ×2 (08:22→17:02)
[2020-07-03 08:31] VITALS: BP 115/62
[2020-07-03 16:12] VITALS: BP 117/62
[2020-07-03] MEDS: HALOPERIDOL 5 MG TABLET PO SCH (20:22)
[2020-07-04 01:09] VITALS: BP 112/65
[2020-07-04 08:42] VITALS: BP 100/56
[2020-07-04] MEDS: ATORVASTATIN CALCIUM 40 MG TABLET PO SCH (08:49)
[2020-07-04] MEDS: LITHIUM CARBONATE 450 MG ER TABLET PO SCH ×2 (08:49→17:13)
[2020-07-04 17:31] VITALS: BP 100/59
[2020-07-04] MEDS: HALOPERIDOL 5 MG TABLET PO SCH (20:28)
[2020-07-05 00:19] VITALS: BP 105/72
[2020-07-05 08:25] VITALS: BP 108/66
[2020-07-05] MEDS: ATORVASTATIN CALCIUM 40 MG TABLET PO SCH (09:09)
[2020-07-05] MEDS: LITHIUM CARBONATE 450 MG ER TABLET PO SCH ×2 (09:09→16:26)
[2020-07-05] MEDS ORDERED: TUBERCULIN, PURIFIED PROTEIN DERIVATIVE 5 TU/0.1 ML SYRINGE ID ONE (15:30)
[2020-07-05 17:09] VITALS: BP 111/71
[2020-07-05] MEDS: HALOPERIDOL 5 MG TABLET PO SCH (20:46)
[2020-07-06 01:14] VITALS: BP 115/71
[2020-07-06] MEDS: ATORVASTATIN CALCIUM 40 MG TABLET PO SCH (08:11)
[2020-07-06] MEDS: LITHIUM CARBONATE 450 MG ER TABLET PO SCH ×2 (08:11→16:16)
[2020-07-06 08:42] VITALS: BP 105/52
[2020-07-06 16:19] VITALS: BP 119/67
[2020-07-06] MEDS: HALOPERIDOL 5 MG TABLET PO SCH (20:27)
[2020-07-07 01:26] VITALS: BP 111/66
[2020-07-07] MEDS: ATORVASTATIN CALCIUM 40 MG TABLET PO SCH (08:08)
[2020-07-07] MEDS: LITHIUM CARBONATE 300 MG CAPSULE PO SCH ×2 (08:35→13:24)
[2020-07-07 08:43] VITALS: BP 100/59
[2020-07-07] MEDS ORDERED: LITH300C3 PO (08:46)
[2020-07-07] MEDS ORDERED: ATOR40TA28 PO (08:46)
== END 2020-07-07 15:15 | disposition home or self-care (01) | DRG 750 ==
LOC: B3A 14:39
PROVIDERS: ADMIT Psychiatry & Neurology Psychiatry; ATTEND Psychiatry & Neurology Psychiatry
DX: F25.0 Schizoaffective disorder, bipolar type (principal); F15.90 Other stimulant use, unspecified, uncomplicated; F12.90 Cannabis use, unspecified, uncomplicated; E78.5 Hyperlipidemia, unspecified; Z20.828 Contact with and (suspected) exposure to other viral communicable diseases; E55.9 Vitamin D deficiency, unspecified; K59.00 Constipation, unspecified; Z59.0 Homelessness; Z79.899 Other long term (current) drug therapy; Z87.440 Personal history of urinary (tract) infections
CPT/HCPCS: 80307; 87081; 87426; J1200; J1630; J2060